=== PATIENT | male | born 1975 | race Two or more races ===

== ENCOUNTER 2016-04-05 21:33 | Emergency (ER) | payer OTHER ==
[2016-04-05 21:56] VITALS: BP 134/92; PULSE 115; TEMP 97.5; BMI 24.3
[2016-04-05] MEDS ORDERED: KETOROLAC TROMETHAMINE 60 MG/2 ML VIAL IM ONE (22:23)
--- NOTE | 2016-04-05 22:23 | PDOC ---
History of Present Illness - General History Source: Patient Exam Limitations: No Limitations - History of Present Illness Initial Comments: 04/05/16 22:52 The patient is a 40-year-old male with a significant past medical history of hypertension, ESRD and gout, presenting to the emergency department complaining of pain predominantly in his right elbow radiating down to his wrist and hand. The patient reports these symptoms are typical of his gout. He reports his pain is exacerbated upon movement. He states he is currently compliant with his allopurinol and prednisone medications. He states he went to dialysis today, and was able to complete his session. He denies nausea, vomiting, diarrhea, and constipation. He denies fever, chills, cough, headache, and dizziness. He denies any chest pain, diaphoresis, palpitations, or shortness of breath. Allergies: None reported. Past Surgical History: None reported. Social History: Non-smoker. Denies alcohol or drug use. PCP: Dr. Stephan Cunningham <Deon Mancini - Last Filed: 04/05/16 22:54> - General History Source: Patient <CornelioBoone perez - Last Filed: 04/05/16 23:53> - General Chief Complaint: Pain Stated Complaint: PAIN-RIGHT HAND Time Seen by Provider: 04/05/16 22:21 Past History <Deon Mancini - Last Filed: 04/05/16 22:54> - Past Medical History Anemia: No Asthma: No Cancer: No Cardiac Disorders: No CVA: No COPD: No CHF: No Dementia: No Diabetes: No Dialysis: Yes (, , Sat) GI Disorders: No Disorders: No HTN: Yes Hypercholesterolemia: No Kidney Stones: (Renal insufficiency) Liver Disease: No Seizures: No Thyroid Disease: No - Surgical History Abdominal Surgery: No Appendectomy: No Cardiac Surgery: No Cholecystectomy: No Lung Surgery: No Neurologic Surgery: No Orthopedic Surgery: No - Psycho/Social/Smoking Cessation Hx Suicidal Ideation: No Smoking History: Never smoked Have you smoked in the past 12 months: No Hx Alcohol Use: No Drug/Substance Use Hx: No Substance Use Type: None Hx Substance Use Treatment: No <Boone Nava - Last Filed: 04/05/16 23:53> - Past Medical History Allergies/Adverse Reactions: Allergies Allergy/AdvReac Type Severity Reaction Status Date / Time No Known Allergies Allergy Verified 04/05/16 21:51 Home Medications: Ambulatory Orders Allopurinol [Zyloprim -] 100 mg PO DAILY 01/30/16 Losartan Potassium 50 mg PO DAILY 01/30/16 Ibuprofen 800 mg PO TID #30 tablet 04/05/16 Oxycodone HCl/Acetaminophen [Percocet 5-325 mg Tablet] 1 - 2 tab PO Q6H #20 tablet MDD 4 04/05/16 Prednisone 10 mg PO DAILY 04/05/16 Review of Systems - Review of Systems Able to Perform ROS?: Yes Comments:: 04/05/16 22:53 CONSTITUTIONAL: Absent: fever, chills, diaphoresis, generalized weakness, malaise, loss of appetite HEENT: Absent: rhinorrhea, nasal congestion, throat pain, throat swelling, difficulty swallowing, mouth swelling, ear pain, eye pain, visual Changes CARDIOVASCULAR: Absent: chest pain, syncope, palpitations, irregular heart rate, lightheadedness , peripheral edema RESPIRATORY: Absent: cough, shortness of breath, dyspnea with exertion, orthopnea, wheezing, stridor, hemoptysis GASTROINTESTINAL: Absent: abdominal pain, abdominal distension, nausea, vomiting, diarrhea, constipation, melena, hematochezia GENITOURINARY: Absent: dysuria, frequency, urgency, hesitancy, hematuria, flank pain, genital pain MUSCULOSKELETAL: Present: +arthralgia, +joint swelling Absent: myalgia, SKIN: Absent: rash, itching, pallor HEMATOLOGIC/IMMUNOLOGIC: Absent: easy bleeding, easy bruising, lymphadenopathy, frequent infections ENDOCRINE: Absent: unexplained weight gain, unexplained weight loss, heat intolerance, cold intolerance NEUROLOGIC: Absent: headache, focal weakness or paresthesias, dizziness, unsteady gait, seizure, mental status changes, bladder or bowel incontinence PSYCHIATRIC: Absent: anxiety, depression, suicidal or homicidal ideation, hallucinations. <Deon Mancini - Last Filed: 04/05/16 22:54> *Physical Exam - Vital Signs Last Vital Signs Temp Pulse Resp BP Pulse Ox 97.5 F L 115 H 20 134/92 99 04/05/16 21:53 04/05/16 21:53 04/05/16 21:53 04/05/16 21:53 04/05/16 21:53 - Physical Exam Comments: 04/05/16 22:53 GENERAL: Well developed, well nourished. Awake and alert. No acute distress. HEENT: Normocephalic, atraumatic. PERRLA, EOMI. No conjunctival pallor. Sclera are non- icteric. Moist mucous membranes. Oropharynx is clear. NECK: Supple. Full ROM. No JVD. Carotid pulses 2+ and symmetric, without bruits. No thyromegaly. No lymphadenopathy. CARDIOVASCULAR: Regular rate and rhythm. No murmurs, rubs, or gallops. Distal pulses are 2+ and symmetric. PULMONARY: No evidence of respiratory distress. Lungs clear to auscultation bilaterally. No wheezing, rales or rhonchi. ABDOMINAL: Soft. Non-tender. Non-distended. No rebound or guarding. No organomegaly. Normoactive bowel sounds. MUSCULOSKELETAL +Diffuse tenderness of the right upper extremity, just above the elbow down to his fingertips. Decreased range of motion secondary to pain. EXTREMITIES: No cyanosis. No clubbing. No edema. No calf tenderness. SKIN: Warm and dry. Normal capillary refill. No rashes. No jaundice. NEUROLOGICAL: Alert, awake, appropriate. Cranial nerves 2-12 intact. No deficits to light touch and temperature in face, upper extremities and lower extremities. No motor deficits in the in face, upper extremities and lower extremities. Normoreflexic in the upper and lower extremities. Normal speech. Toes are down- going bilaterally. Gait is normal without ataxia. PSYCHIATRIC: Cooperative. Good eye contact. Appropriate mood and affect. <Deon Mancini - Last Filed: 04/05/16 22:54> - Vital Signs Last Vital Signs Temp Pulse Resp BP Pulse Ox 97.5 F L 115 H 20 134/92 99 04/05/16 21:53 04/05/16 21:53 04/05/16 21:53 04/05/16 21:53 04/05/16 21:53 <Boone Nava - Last Filed: 04/05/16 23:53> ED Treatment Course - Medications Given in the ED: ED Medications Discontinued Medications Generic Name Dose Route Start Last Admin Trade Name Freq PRN Reason Stop Dose Admin Ketorolac Tromethamine 60 mg 04/05/16 22:23 04/05/16 22:32 Toradol Injection - IM 04/05/16 22:24 60 mg ONCE ONE Administration <Deon Mancini - Last Filed: 04/05/16 22:54> Medical Decision Making - Medical Decision Making 04/05/16 23:53 Dr. Nava: The scribe's documentation has been prepared under my direction and personally reviewed by me in its entirery. I confirm that the note above accurately reflects all work, treatment, procedures, and medical decision making performed by me. <Boone Nava - Last Filed: 04/05/16 23:53> *DC/Admit/Observation/Transfer - Attestations Scribe Attestion: 04/05/16 22:54 Documentation prepared by Deon Mancini, acting as medical office manager for Boone Nava DO. <Deon Mancini - Last Filed: 04/05/16 22:54> - Discharge Dispostion Admit: No <Boone Nava - Last Filed: 04/05/16 23:53> Diagnosis at time of Disposition: Gout Qualifiers: Gout site: hand Gout etiology: unspecified cause Laterality: right Chronicity: chronic - Discharge Dispostion Disposition: HOME Condition at time of disposition: Stable - Referrals Referrals: Stephan Cunningham MD [Primary Care Provider] - - Patient Instructions Printed Discharge Instructions: DI for Gout
[2016-04-05] MEDS ORDERED: KETOROLAC TROMETHAMINE 60 MG/2 ML VIAL ONE (22:24)
[2016-04-05] MEDS ORDERED: OXYCODONE/APAP 5/325MG COMBO TABLET PO ONE (23:25)
[2016-04-05] MEDS ORDERED: OXYCODONE/APAP 5/325MG COMBO TABLET ONE (23:29)
== END 2016-04-06 00:28 | disposition home or self-care (01) ==
LOC: JER 21:33
PROC: 3E0233Z Introduction of Anti-inflammatory into Muscle, Percutaneous Approach (ICD-10-PCS; principal; 2016-04-05)
DX: M10.9 Gout, unspecified (principal); I12.0 Hypertensive chronic kidney disease with stage 5 chronic kidney disease or end stage renal disease; N18.6 End stage renal disease; N17.8 Other acute kidney failure; Z99.2 Dependence on renal dialysis
CPT/HCPCS: 99282-25

== ENCOUNTER 2016-05-12 15:19 | Emergency (ER) | payer OTHER ==
[2016-05-12 15:28] VITALS: BP 149/90; TEMP 97.8; BMI 24.6
[2016-05-12] MEDS ORDERED: COLCHICINE 0.6 MG TABLET (FP) PO ONE (16:12)
[2016-05-12] MEDS ORDERED: INDOMETHACIN 50 MG CAPSULE PO ONE (16:12)
[2016-05-12] MEDS ORDERED: COLCHICINE 0.6 MG TABLET (FP) ONE (16:15)
--- NOTE | 2016-05-12 16:25 | PDOC ---
History of Present Illness - General Chief Complaint: Pain Stated Complaint: GOUT/ KNEES Time Seen by Provider: 05/12/16 16:09 History Source: Patient - History of Present Illness Associated Symptoms: denies: fever/chills Past History - Past Medical History Allergies/Adverse Reactions: Allergies Allergy/AdvReac Type Severity Reaction Status Date / Time No Known Allergies Allergy Verified 05/12/16 15:28 Home Medications: Ambulatory Orders Allopurinol [Zyloprim -] 100 mg PO DAILY 01/30/16 Losartan Potassium 50 mg PO DAILY 01/30/16 Ibuprofen 800 mg PO TID #30 tablet 04/05/16 Oxycodone HCl/Acetaminophen [Percocet 5-325 mg Tablet] 1 - 2 tab PO Q6H #20 tablet MDD 4 04/05/16 Prednisone 10 mg PO DAILY 04/05/16 Allopurinol [Zyloprim -] 100 mg PO DAILY #30 tablet 05/12/16 Oxycodone HCl/Acetaminophen [Percocet 5-325 mg Tablet] 1 tab PO Q4H #20 tablet MDD 4 05/12/16 Prednisone [Deltasone -] 20 mg PO DAILY #11 tablet 05/12/16 Anemia: No Asthma: No Cancer: No Cardiac Disorders: No CVA: No COPD: No CHF: No Dementia: No Diabetes: No Dialysis: Yes (, , Sat) GI Disorders: No Disorders: No HTN: Yes Hypercholesterolemia: No Kidney Stones: (Renal insufficiency) Liver Disease: No Seizures: No Thyroid Disease: No Other medical history: gout - Surgical History Abdominal Surgery: No Appendectomy: No Cardiac Surgery: No Cholecystectomy: No Lung Surgery: No Neurologic Surgery: No Orthopedic Surgery: No - Psycho/Social/Smoking Cessation Hx Suicidal Ideation: No Smoking History: Never smoked Have you smoked in the past 12 months: No Information on smoking cessation initiated: No Hx Alcohol Use: No Drug/Substance Use Hx: No Substance Use Type: None Hx Substance Use Treatment: No Review of Systems - Review of Systems Constitutional: No: Chills, Fever Musculoskeletal: Yes: Joint Pain, Joint Swelling *Physical Exam - Vital Signs Last Vital Signs Temp Pulse Resp BP Pulse Ox 97.8 F 116 H 18 149/90 98 05/12/16 15:26 05/12/16 15:26 05/12/16 15:26 05/12/16 15:26 05/12/16 15:26 - Physical Exam General Appearance: Yes: Appropriately Dressed. No: Apparent Distress HEENT: positive: Normal Voice Neck: positive: Supple Respiratory/Chest: negative: Respiratory Distress Extremity: positive: Tender (diffuse swellign to knees, bl, +ttp, minimal swelling w/ ttp to dorsum of R wrist), Swelling Medical Decision Making - Medical Decision Making 05/12/16 16:17 40 yo M, h/o HTN, ESRD on HD, gout to multiple joints, on allopurinol daily but ran out 2 days ago and now p/w b/l knee and R wrist pain and swelling that started yesterday, similar to his gout. No f/c. No h/o septic joint. See exam Polyarticular gout flare Ran out of allopurinol No e/o septic joint Unable to get NSAID or colchicine given renal status Will start on steroids and give 1 dose of narcotics in ED and reassess 05/12/16 17:02 05/12/16 18:05 Pt reports significant improvement w/ meds and able to ambulate. Will dc w/ pred taper and refill of his allopurinol. Pt to f/u with PMD *DC/Admit/Observation/Transfer Diagnosis at time of Disposition: Gout Qualifiers: Gout site: wrist Gout etiology: unspecified cause Laterality: right Chronicity : acute Qualified Code(s): M10.9 - Gout, unspecified - Discharge Dispostion Disposition: HOME Condition at time of disposition: Improved - Prescriptions Prescriptions: Prednisone [Deltasone -] 20 mg PO DAILY #11 tablet Oxycodone HCl/Acetaminophen [Percocet 5-325 mg Tablet] 1 tab PO Q4H #20 tablet MDD 4 Allopurinol [Zyloprim -] 100 mg PO DAILY #30 tablet - Referrals Referrals: Stephan Cunningham MD [Primary Care Provider] - - Patient Instructions Printed Discharge Instructions: Gout Additional Instructions: Take medications as directed and follow up with your PMD
[2016-05-12] MEDS ORDERED: predniSONE 20 MG TABLET (UD) PO ONE (16:31)
[2016-05-12] MEDS ORDERED: ALLOPURINOL 100 MG TABLET (FP) PO ONE (16:32)
[2016-05-12] MEDS ORDERED: OXYCODONE/APAP 5/325MG COMBO TABLET PO ONE (16:34)
[2016-05-12] MEDS ORDERED: OXYCODONE/APAP 5/325MG COMBO TABLET ONE (16:39)
[2016-05-12] MEDS ORDERED: ALLOPURINOL 100 MG TABLET (FP) ONE (16:39)
[2016-05-12] MEDS ORDERED: predniSONE 20 MG TABLET (UD) ONE (16:39)
[2016-05-12 18:22] VITALS: PULSE 80
== END 2016-05-12 18:22 | disposition home or self-care (01) ==
LOC: JER 15:19 → JERFT 15:19 → JER 18:22
DX: M10.9 Gout, unspecified (principal); I12.0 Hypertensive chronic kidney disease with stage 5 chronic kidney disease or end stage renal disease; N18.6 End stage renal disease; N17.8 Other acute kidney failure; Z99.2 Dependence on renal dialysis
CPT/HCPCS: 99282-25

== ENCOUNTER 2016-07-15 10:23 | Inpatient (IN) | payer OTHER ==
--- NOTE | 2016-07-15 11:00 | PDOC ---
Attending Attestation - Resident Resident Name: Emerson Garcia - ED Attending Attestation I have performed the following: I have examined & evaluated the patient, The case was reviewed & discussed with the resident, I agree w/resident's findings & plan - HPI HPI: 07/15/16 10:58 41-year-old male with a past medical history of end-stage renal disease on dialysis Saturday and Saturday The basis of his end-stage renal disease is uncontrolled hypertension and PCKD He states that he has been on dialysis for about 6 months He is complaining of some pain in his vascular access graft in his left arm since this am, and he is unable to feel a thrill on the vascular access graft, prompting him to come to the ED He states that he did have a full dialysis yesterday without difficulty - Physicial Exam PE: 07/15/16 11:04 Physical exam Last Vital Signs Temp Pulse Resp BP Pulse Ox 98.2 F 88 18 165/112 98 07/15/16 10:25 07/15/16 10:25 07/15/16 10:25 07/15/16 10:25 07/15/16 10:25 Patient is alert and ambulatory and answering questions without difficulty Right arm- The dialysis access graft is tender, and there is no thrill in the graft - Medical Decision Making 07/15/16 12:26 Vascular duplex arterial There is no flow identified in the AV fistula at the level of the mid arm Impression-completely occluded left arm AV fistula Case discussed with Dr. Castrejon-will need admission 07/15/16 13:54 Laboratory Results - last 24 hr 07/15/16 07/15/16 07/15/16 12:30 12:30 12:30 WBC 12.7 H RBC 4.03 D Hgb 11.2 L D Hct 34.6 L D MCV 85.8 MCHC 32.5 RDW 14.4 Plt Count 182 D MPV 7.3 L Neutrophils % 78.0 Lymphocytes % 16.0 D Monocytes % 4.0 Band Neutrophils 2.0 Platelet Estimate Adequate Platelet Comment No clotting detected Hypochromic-Microcytic 1+ Anisocytosis 1+ INR PTT (Actin FS) Sodium 143 Potassium 3.8 D Chloride 105 Carbon Dioxide 28 Anion Gap 10 BUN 44 H D Creatinine 6.2 H D Creat Clearance w eGFR 9.98 Random Glucose 95 Calcium 8.4 L Phosphorus 3.2 D Total Bilirubin 0.3 D AST 14 L D ALT 38 D Alkaline Phosphatase 47 D Total Protein 6.5 Albumin 3.3 L 07/15/16 12:30 WBC RBC Hgb Hct MCV MCHC RDW Plt Count MPV Neutrophils % Lymphocytes % Monocytes % Band Neutrophils Platelet Estimate Platelet Comment Hypochromic-Microcytic Anisocytosis INR 0.97 PTT (Actin FS) 27.4 D Sodium Potassium Chloride Carbon Dioxide Anion Gap BUN Creatinine Creat Clearance w eGFR Random Glucose Calcium Phosphorus Total Bilirubin AST ALT Alkaline Phosphatase Total Protein Albumin Case discussed with Dr. Castrejon and hospitalist 07/15/16 14:05 EKG Normal sinus rhythm 70, normal axis Normal AV and IV conduction time Normal QTC Possible old septal infarct versus lead placement
--- NOTE | 2016-07-15 11:08 | PDOC ---
History of Present Illness - General Chief Complaint: Dialysis Shunt Problem Stated Complaint: DIALYSIS/FISTULA Time Seen by Provider: 07/15/16 10:35 History Source: Patient Exam Limitations: No Limitations - History of Present Illness Initial Comments: 41 yo M with h/o ESRD on HD (Tue, [place], Sat) last dialyzed yesterday, HTN and gout presented to the ED with pain at L AVF located in the L upper arm. He received HD yesterday without complication. This morning he noted pain at the AVF site, non-radiating, pressure-like, 5/10, constant, worse with bending his arm. Denies fever, chills, trauma to the site, n/v, chest pain, sob. Past History - Past Medical History Allergies/Adverse Reactions: Allergies Allergy/AdvReac Type Severity Reaction Status Date / Time No Known Allergies Allergy Verified 07/15/16 10:25 Home Medications: Ambulatory Orders Losartan Potassium 100 mg PO DAILY 01/30/16 Prednisone [Deltasone -] 20 mg PO DAILY #11 tablet 05/12/16 Febuxostat [Uloric -] 40 mg PO DAILY 07/15/16 Anemia: No Asthma: No Cancer: No Cardiac Disorders: No CVA: No COPD: No CHF: No Dementia: No Diabetes: No Dialysis: Yes (tue,thr,sat lt arm fistula) GI Disorders: No Disorders: No HTN: Yes Hypercholesterolemia: No Kidney Stones: (Renal insufficiency) Liver Disease: No Seizures: No Thyroid Disease: No - Surgical History Abdominal Surgery: No Appendectomy: No Cardiac Surgery: No Cholecystectomy: No Lung Surgery: No Neurologic Surgery: No Orthopedic Surgery: No - Psycho/Social/Smoking Cessation Hx Anxiety: No Suicidal Ideation: No Smoking History: Never smoked Have you smoked in the past 12 months: No Information on smoking cessation initiated: No Hx Alcohol Use: No Drug/Substance Use Hx: No Substance Use Type: None Hx Substance Use Treatment: No Review of Systems - Review of Systems Able to Perform ROS?: Yes Is the patient limited Czech proficient: No Constitutional: No: Chills, Fever Respiratory: No: Cough Cardiac (ROS): No: Chest Pain : No: Dysuria Musculoskeletal: No: Joint Pain *Physical Exam - Vital Signs Last Vital Signs Temp Pulse Resp BP Pulse Ox 98.2 F 88 18 165/112 98 07/15/16 10:25 07/15/16 10:25 07/15/16 10:25 07/15/16 10:25 07/15/16 10:25 - Physical Exam General Appearance: No: Apparent Distress Respiratory/Chest: positive: Lungs Clear, Normal Breath Sounds Cardiovascular: positive: Regular Rhythm, Regular Rate, S1, S2. negative: Murmur Musculoskeletal: negative: CVA Tenderness Extremity: positive: Other (No bruit heard over AVF and no thrill palpated) Neurologic: positive: Fully Oriented, Alert ED Treatment Course - RADIOLOGY Radiology Studies Ordered: Category Date Time Status DUPLEX HEMODIALYSIS ACCESS [VASC] Stat Vascular 07/15/16 10:54 Ordered Medical Decision Making - Medical Decision Making 07/15/16 11:11 41 yo M with h/o ESRD on HD admitted to the ED for possible AVF thrombosis. 07/15/16 12:39 Duplex shows AVF occlusion. Will admit the patient under hospitalist's service and Dr. Castrejon will fix it tomorrow. *DC/Admit/Observation/Transfer Diagnosis at time of Disposition: Thrombosis of arteriovenous fistula Qualifiers: Encounter type: initial encounter Qualified Code(s): T82.868A - Thrombosis due to vascular prosthetic devices, implants and grafts, initial encounter - Discharge Dispostion Disposition: HOME Condition at time of disposition: Stable Admit: Yes - Referrals Referrals: Stephan Cunningham MD [Primary Care Provider] -
[2016-07-15 13:04] LABS: MCH 27.9 pg (25.7-33.7); MCHC 32.5 g/dl (32.0-35.9); MEAN CELL VOLUME 85.8 fl (80-96); MEAN PLT VOLUME 7.3 fl (7.5-11.1); PLATELET COUNT 182 K/MM3 (134-434); RDW 14.4 % (11.9-15.9); WHITE BLOOD COUNT 12.7 K/mm3 (4.0-10.0)
[2016-07-15 13:20] LABS: INR 0.97 (0.82-1.09); PROTHROMBIN TIME (PATIENT) 10.7 SEC (9.98-11.88)
[2016-07-15 13:23] LABS: ACTIVATED PTT 27.4 SECONDS (26.9-34.4)
[2016-07-15 13:31] LABS: ALBUMIN 3.3 g/dl (3.4-5.0); BILIRUBIN,TOTAL 0.3 mg/dL (0.2-1.0); CALCIUM 8.4 mg/dL (8.5-10.1); COCKROFT - GAULT 15.93; CREATININE 6.2 mg/dL (0.7-1.3); TOT PROT 6.5 g/dl (6.4-8.2)
[2016-07-15 13:34] LABS: ANISOCYTOSIS 1+; HYPOCHROMIA 1+; PLATELET COMMENT2 NO CLOTTING DETECTED; PLATELET ESTIMATE ADEQUATE (NORMAL)
--- NOTE | 2016-07-15 14:22 | HP ---
CHIEF COMPLAINT: AVF malfunction PCP: HISTORY OF PRESENT ILLNESS: 41 yo M with polycystic kidney disease on ESRD through LUE fistula, HTN, gout presents with AVF malfunction. Patient states that he had HD yesterday, as he normally does. This AM he woke up with discomfort in his LUE and felt his fistula and noticed there wasn't a thrill. He came to ED. He denies any swelling in the LUE. ER course was notable for: (1) LUE US with thrombosed fistula PAST MEDICAL HISTORY: as above PAST SURGICAL HISTORY: AVF Social History: Smoking: dnies Alcohol: denies Drugs: denies Family History: ESRD 2/2 PCKD Allergies No Known Allergies Allergy (Verified 07/15/16 10:25) HOME MEDICATIONS: Home Medications Medication Instructions Recorded Losartan Potassium 100 mg PO DAILY 01/30/16 Prednisone [Deltasone -] 20 mg PO DAILY #11 tablet 05/12/16 Febuxostat [Uloric -] 40 mg PO DAILY 07/15/16 REVIEW OF SYSTEMS CONSTITUTIONAL: Absent: fever, chills, diaphoresis, generalized weakness, malaise, loss of appetite, weight change HEENT: Absent: rhinorrhea, nasal congestion, throat pain, throat swelling, difficulty swallowing, mouth swelling, ear pain, eye pain, visual changes CARDIOVASCULAR: Absent: chest pain, syncope, palpitations, irregular heart rate, lightheadedness , peripheral edema RESPIRATORY: Absent: cough, shortness of breath, dyspnea with exertion, orthopnea, wheezing, stridor, hemoptysis GASTROINTESTINAL: Absent: abdominal pain, abdominal distension, nausea, vomiting, diarrhea, constipation, melena, hematochezia GENITOURINARY: Absent: dysuria, frequency, urgency, hesitancy, hematuria, flank pain, genital pain MUSCULOSKELETAL: Absent: myalgia, arthralgia, joint swelling, back pain, neck pain SKIN: Absent: rash, itching, pallor HEMATOLOGIC/IMMUNOLOGIC: Absent: easy bleeding, easy bruising, lymphadenopathy, frequent infections ENDOCRINE: Absent: unexplained weight gain, unexplained weight loss, heat intolerance, cold intolerance NEUROLOGIC: Absent: headache, focal weakness or paresthesias, dizziness, unsteady gait, seizure, mental status changes, bladder or bowel incontinence PSYCHIATRIC: Absent: anxiety, depression, suicidal or homicidal ideation, hallucinations. PHYSICAL EXAMINATION GENERAL: Awake, alert, and fully oriented, in no acute distress. HEAD: Normal with no signs of trauma. EYES: Pupils equal, round and reactive to light, extraocular movements intact, sclera anicteric, conjunctiva clear. No lid lag. EARS, NOSE, THROAT: Ears normal, nares patent, oropharynx clear without exudates. Moist mucous membranes. NECK: Normal range of motion, supple without lymphadenopathy, JVD, or masses. LUNGS: Breath sounds equal, clear to auscultation bilaterally. No wheezes, and no crackles. No accessory muscle use. HEART: Regular rate and rhythm, normal S1 and S2 without murmur, rub or gallop. ABDOMEN: Soft, nontender, not distended, normoactive bowel sounds, no guarding, no rebound, no masses. No hepatomegaly or splenomegaly. MUSCULOSKELETAL: Normal range of motion at all joints. No bony deformities or tenderness. No CVA tenderness. UPPER EXTREMITIES: 2+ pulses, warm, well-perfused. No cyanosis. No clubbing. No peripheral edema. NO BRUIT, NO THRILL in FISTULA LOWER EXTREMITIES: 2+ pulses, warm, well-perfused. No calf tenderness. No peripheral edema. NEUROLOGICAL: Cranial nerves II-XII intact. Normal speech. Normal gait. PSYCHIATRIC: Cooperative. Good eye contact. Appropriate mood and affect. SKIN: Warm, dry, normal turgor, no rashes or lesions noted, normal capillary refill. Laboratory Results - last 24 hr 07/15/16 07/15/16 07/15/16 12:30 12:30 12:30 WBC 12.7 H RBC 4.03 D Hgb 11.2 L D Hct 34.6 L D MCV 85.8 MCHC 32.5 RDW 14.4 Plt Count 182 D MPV 7.3 L Neutrophils % 78.0 Lymphocytes % 16.0 D Monocytes % 4.0 Band Neutrophils 2.0 Platelet Estimate Adequate Platelet Comment No clotting detected Hypochromic-Microcytic 1+ Anisocytosis 1+ INR PTT (Actin FS) Sodium 143 Potassium 3.8 D Chloride 105 Carbon Dioxide 28 Anion Gap 10 BUN 44 H D Creatinine 6.2 H D Creat Clearance w eGFR 9.98 Random Glucose 95 Calcium 8.4 L Phosphorus 3.2 D Total Bilirubin 0.3 D AST 14 L D ALT 38 D Alkaline Phosphatase 47 D Total Protein 6.5 Albumin 3.3 L 07/15/16 12:30 WBC RBC Hgb Hct MCV MCHC RDW Plt Count MPV Neutrophils % Lymphocytes % Monocytes % Band Neutrophils Platelet Estimate Platelet Comment Hypochromic-Microcytic Anisocytosis INR 0.97 PTT (Actin FS) 27.4 D Sodium Potassium Chloride Carbon Dioxide Anion Gap BUN Creatinine Creat Clearance w eGFR Random Glucose Calcium Phosphorus Total Bilirubin AST ALT Alkaline Phosphatase Total Protein Albumin ASSESSMENT/PLAN: 41 yo M with polycystic kidney disease on ESRD through LUE fistula, HTN, gout presents with AVF malfunction and US revealing thrombosed fistula. His vascular surgeon has been consulted and he will go to the OR tomorrow. AVF malfunction: -OR tomorrow - NPO after midnight ESRD: - resume HD after OR - no acute indication for HD HTN: -continue losartan gout: -continue uloric
[2016-07-15 20:42] VITALS: BMI 24.2
[2016-07-15] MEDS ORDERED: PT OWN MED DRAWER 7, Y5N ONE (22:19)
--- NOTE | 2016-07-16 00:08 | EKG ---
Test Reason : Blood Pressure : / mmHG Vent. Rate : 070 BPM Atrial Rate : 070 BPM P-R Int : 128 ms QRS Dur : 082 ms QT Int : 394 ms P-R-T Axes : 035 024 032 degrees QTc Int : 425 ms NORMAL SINUS RHYTHM SEPTAL INFARCT , AGE UNDETERMINED ABNORMAL ECG WHEN COMPARED WITH ECG OF 06-DEC-2015 12:57, NO SIGNIFICANT CHANGE WAS FOUND Confirmed by LISA HSU MD ([id number]) on 07/16/2016 12:08:14 AM Referred By: Confirmed By:LISA HSU MD
[2016-07-16 07:42] LABS: MCH 28.3 pg (25.7-33.7); MCHC 32.8 g/dl (32.0-35.9); MEAN CELL VOLUME 86.1 fl (80-96); MEAN PLT VOLUME 7.7 fl (7.5-11.1); PLATELET COUNT 187 K/MM3 (134-434); RDW 14.4 % (11.9-15.9)
[2016-07-16 08:22] LABS: CALCIUM 8.4 mg/dL (8.5-10.1); COCKROFT - GAULT 14.06; PHOSPHOROUS 3.6 mg/dL (2.5-4.9)
[2016-07-16] MEDS ORDERED: PT OWN MED DRAWER 7, Y5N ONE (09:06)
[2016-07-16] MEDS ORDERED: FEBUXOSTAT 40 MG TAB PO SCH (10:00)
[2016-07-16] MEDS ORDERED: LOSARTAN POTASSIUM 50 MG TABLET (FP) PO SCH (10:00)
--- NOTE | 2016-07-16 11:55 | CONSULT ---
Consult - text type - Consultation Consultation Note: Renal Consult for ESRD on Hd This is 41 year old Gentleman wit PMhx of ESRD on HD (TTS), PCKD, Hypertension , Gout who presented with left arm pain and found to have a clotted AVF. Pt lasthad dialysis on Saturday w/o complication. PMhx: as above Allergies: NKDA Family hx: NC Social hx: no T/A/D ROS: No chest pain, sob, abd pain, fever, chills, swelling. Has tenderness in Right hand. Home Meds: Home Medications Medication Instructions Recorded Losartan Potassium 100 mg PO DAILY 01/30/16 Prednisone [Deltasone -] 20 mg PO DAILY #11 tablet 05/12/16 Febuxostat [Uloric -] 40 mg PO DAILY 07/15/16 Vital Signs Temperature 98.7 F 07/16/16 10:05 Pulse Rate 53 L 07/16/16 10:05 Respiratory Rate 16 07/16/16 10:05 Blood Pressure 170/90 07/16/16 11:00 O2 Sat by Pulse Oximetry (%) 96 07/16/16 09:00 Intake & Output 07/13/16 07/14/16 07/15/16 07/16/16 23:59 23:59 23:59 23:59 Intake Total 0 Balance 0 Weight 159 lb 8 oz 164 lb 12.8 oz gen: NAD, awake and alert HEENT: NC/AT, MMM CVS: RRR, No M/R Lungs: CTA, no rales or wheeze Abd: soft NT/ND Ext: no edema Access: AVF no thrill or Bruit CBC, BMP 07/16/16 06:00 07/16/16 06:00 Current Medications Febuxostat (Uloric -) 40 mg PO DAILY [facility] Last Admin: 07/16/16 10:27 Dose: Not Given Losartan Potassium (Cozaar -) 100 mg PO DAILY [facility] Last Admin: 07/16/16 09:18 Dose: 100 mg 41 year old Gentleman wit PMhx of ESRD on HD (TTS), PCKD, Hypertension, Gout who presented with left arm pain and found to have a clotted AVF. #Hemodialysis access complication /dysfunction # ESRD on HD #Hypertension #Gout #PCKD #Anemia for Vascular intervention today no acute indication for dialysis today can be discharged following reji Cunningham DO
[2016-07-16] MEDS ORDERED: HEPARIN NA (PORCINE) 5,000 UNITS/ML 1ML VIAL ONE ×3 (12:27→14:59)
[2016-07-16] MEDS ORDERED: LIDOCAINE HCL 1%, 10 MG/ML (20ML VIAL) ONE (12:27)
[2016-07-16] MEDS ORDERED: ceFAZolin SODIUM 1 GM VIAL IVPB ONE (13:49)
[2016-07-16] MEDS ORDERED: LIDOCAINE HCL 1%, 10 MG/ML (20ML VIAL) IJ ONE ×2 (13:56)
[2016-07-16] MEDS ORDERED: ONDANSETRON 4 MG/2 ML VIAL IVPUSH PRN ×2 (14:58→15:44)
--- NOTE | 2016-07-16 15:09 | OP ---
Operative Note - Note: Operative Date: 07/16/16 Pre-Operative Diagnosis: ESRD. Clotted left avf Operation: venogram,suction thrombectomy left avf, insertion of permacath Post-Operative Diagnosis: Same as Pre-op Surgeon: Blaze Castrejon Anesthesia: Fractional Estimated Blood Loss (mls): 30 Operative Report Dictated: Yes
[2016-07-16] MEDS ORDERED: LABETALOL HCL 5 MG/1 ML (100MG/20 ML VIAL) IVPUSH ONE (16:08)
[2016-07-16] MEDS ORDERED: cloNIDine HCL 0.1 MG TABLET PO ONE (16:48)
--- NOTE | 2016-07-16 18:59 | PN ---
Progress Note (short form) - Note Progress Note: Vascular Surgery Left avf clotted and could not open permacath placed left IJ Will order vein mapping of right arm to place new access Blaze Castrejon dO
--- NOTE | 2016-07-16 19:51 | PN ---
Physical Exam: SUBJECTIVE: Patient seen and examined post op. He is feeling cold and discouraged the clot would not open. He is hungry. Denies double vision or HELMS. OBJECTIVE: Vital Signs Period Temp Pulse Resp BP Sys/Hilario Pulse Ox Last 24 Hr 97.9 F-98.7 F 53-86 9-20 140-185/85-124 96-100 PE Neuro: alert, awake, cn 2-12intact Pulm: CTAB CV: s1 s2 rrr nomrg Abd: s nt nd +bs ExT: LUE AVF no thrill, + sutures in tact skin: LCW permacath in palce Laboratory Results - last 24 hr 07/16/16 07/16/16 07/16/16 06:00 06:00 10:15 WBC 11.0 H RBC 4.09 Hgb 11.5 L Hct 35.2 L MCV 86.1 MCHC 32.8 RDW 14.4 Plt Count 187 MPV 7.7 Sodium 142 Potassium 4.3 Plasma Potassium 4.3 Chloride 106 Carbon Dioxide 24 Anion Gap 12 BUN 59 H D Creatinine 7.0 H Random Glucose 81 Calcium 8.4 L Phosphorus 3.6 Magnesium 2.0 Active Medications Generic Name Dose Route Start Last Admin Trade Name Freq PRN Reason Stop Dose Admin Febuxostat 40 mg 07/17/16 10:00 Uloric - PO DAILY ES Losartan Potassium 100 mg 07/17/16 10:00 Cozaar - PO DAILY ES Ondansetron HCl 4 mg 07/16/16 15:44 Zofran Injection IVPUSH 07/16/16 20:59 Q6H PRN NAUSEA AND/OR VOMITING Assessment: 41 year old male with PMhx of ESRD on HD (TTS), PCKD, Hypertension, Gout admitted with left arm pain and found to have a clotted AVF. Plan: 1. AVF complication /dysfunction - Unsuccessful thrombectomy today, clot would not open - LCW Permacath placed - Per vascular vein mapping of right arm to place new access 2. ESRD on HD - HD tomorrow per Renal 3. Hypertension - Clonidine 0.1mg x1 given for post surgical HTN with appropriate decrease - Losartan 100mg daily - Start norvasc 5mg daily tomorrow 4. Gout - Continue uloric 5. PCKD 6. Anemia - Hgb stable 7. DVT ppx - Heparin sq Visit type - Emergency Visit Emergency Visit: Yes ED Registration Date: 07/15/16 Care time: The patient presented to the Emergency Department on the above date and was hospitalized for further evaluation of their emergent condition. - New Patient This patient is new to me today: Yes Date on this admission: 07/16/16 - Critical Care Critical Care patient: No
[2016-07-16] MEDS: oxyCODONE HCL 5 MG TABLET PO PRN (23:04)
[2016-07-16] MEDS: ACETAMINOPHEN 325 MG TABLET (FP) PO PRN (23:06)
[2016-07-17 07:48] LABS: BASOPHIL 0.3 % (0-2.0); EOSINOPHIL 0.4 % (0-4.5); MCHC 32.6 g/dl (32.0-35.9); MEAN CELL VOLUME 85.8 fl (80-96); MEAN PLT VOLUME 7.9 fl (7.5-11.1); NEUTROPHILS 84.4 % (42.8-82.8); PLATELET COUNT 170 K/MM3 (134-434); RDW 14.5 % (11.9-15.9); WHITE BLOOD COUNT 13.6 K/mm3 (4.0-10.0)
[2016-07-17 08:11] LABS: CALCIUM 8.5 mg/dL (8.5-10.1); PHOSPHOROUS 3.8 mg/dL (2.5-4.9)
[2016-07-17 08:21] LABS: COCKROFT - GAULT 13.21
[2016-07-17 08:51] LABS: CREATININE 7.7 mg/dL (0.7-1.3)
--- NOTE | 2016-07-17 09:04 | PN ---
Progress Note (short form) - Note Progress Note: Vascular Surgery- Dr. Castrejon Patient seen and examined. Patient states he is doing well, has minimal pain in left arm and permacath site, however he is complaining of pain and swelling in his right hand due to his gout. Last Vital Signs Temp Pulse Resp BP Pulse Ox 98.1 F 87 20 139/80 96 07/17/16 09:00 07/17/16 09:00 07/17/16 09:00 07/17/16 09:00 07/17/16 09:00 CBC, BMP 07/17/16 06:15 07/17/16 06:15 Exam: Gen: NAD Permacath in place, dressing c/d/i UE: LUE sutures c/d/i, RUE swelling tenderness right hand A/P POD#1 s/p unsuccessful thrombectomy for occluded L AVF, permacath placement Follow-up vein mapping for new access
[2016-07-17] MEDS: amLODIPine BESYLATE 5 MG TABLET (FP) PO SCH (09:08)
[2016-07-17] MEDS: HEPARIN NA (PORCINE) 5,000 UNITS/ML 1ML VIAL SQ SCH ×3 (09:08→23:47)
[2016-07-17] MEDS: LOSARTAN POTASSIUM 50 MG TABLET (FP) PO SCH (09:08)
[2016-07-17] MEDS: FEBUXOSTAT 40 MG TAB PO SCH (09:08)
--- NOTE | 2016-07-17 10:45 | PN ---
Physical Exam: SUBJECTIVE: Patient seen and examined. He is c/p R hand pain and swelling, he was unable to sleep d/t pain OBJECTIVE: Vital Signs Period Temp Pulse Resp BP Sys/Hilario Pulse Ox Last 24 Hr 97.8 F-99.8 F 68-100 9-20 127-185/74-124 96-100 PE Neuro: alert, awake, cn 2-12intact Pulm: CTAB CV: s1 s2 rrr no mrg Abd: s nt nd +bs ExT: R hand swelling tracks to elbow, warm, tender, unable to move, LUE AVF no thrill, + sutures in tact Skin: LCW permacath Laboratory Results - last 24 hr 07/17/16 07/17/16 06:15 06:15 WBC 13.6 H RBC 3.88 L Hgb 10.9 L Hct 33.3 L MCV 85.8 MCHC 32.6 RDW 14.5 Plt Count 170 MPV 7.9 Neutrophils % 84.4 H Lymphocytes % 9.8 D Monocytes % 5.1 Eosinophils % 0.4 D Basophils % 0.3 Sodium 138 Potassium 4.4 Chloride 103 Carbon Dioxide 19 L D Anion Gap 16 BUN 70 H Creatinine 7.7 H* Random Glucose 95 Calcium 8.5 Phosphorus 3.8 Magnesium 2.0 Active Medications Generic Name Dose Route Start Last Admin Trade Name Freq PRN Reason Stop Dose Admin Acetaminophen 325 mg 07/16/16 19:50 07/16/16 23:06 Tylenol - PO 325 mg Q6H PRN Administration FEVER OR PAIN Amlodipine Besylate 5 mg 07/17/16 10:00 07/17/16 09:08 Norvasc - PO 5 mg DAILY ES Administration Febuxostat 40 mg 07/17/16 10:00 07/17/16 09:08 Uloric - PO 40 mg DAILY ES Administration Heparin Sodium (Porcine) 5,000 unit 07/17/16 10:00 07/17/16 09:08 Heparin - SQ 5,000 unit TID ES Administration Heparin Sodium (Porcine) 1,000 unit 07/17/16 09:21 Heparin - IVPUSH 07/17/16 09:22 ONCE ONE Losartan Potassium 100 mg 07/17/16 10:00 07/17/16 09:08 Cozaar - PO 100 mg DAILY ES Administration Oxycodone HCl 5 mg 07/16/16 19:50 07/16/16 23:04 Roxicodone - PO 5 mg Q6H PRN Administration PAIN Assessment: 41 year old male with PMhx of ESRD on HD (TTS), PCKD, Hypertension, Gout admitted with left arm pain and found to have a clotted AVF. Plan: 1. AVF complication /dysfunction - Unsuccessful thrombectomy; LCW Permacath placed 07/16 - Vein mapping of right arm to place new access 2. ESRD on HD - HD today 3. Hypertension - Stable this AM - Continue losartan 100 daily - Started norvasc 5mg today 4. Acute gout flare - Check uric acid level now - Continue uloric 5. Leukocytosis - Reactive 2/2 surgery vs acute gout - Will monitor, see above 6. PCKD 7. Anemia - Hgb stable 8. DVT ppx - Heparin sq Visit type - Emergency Visit Emergency Visit: Yes ED Registration Date: 07/15/16 Care time: The patient presented to the Emergency Department on the above date and was hospitalized for further evaluation of their emergent condition. - New Patient This patient is new to me today: No - Critical Care Critical Care patient: No
[2016-07-17] MEDS ORDERED: COLCHICINE 0.6 MG TABLET (FP) PO ONE ×2 (11:19→12:30)
--- NOTE | 2016-07-17 11:47 | PN ---
Progress Note (short form) - Note Progress Note: Renal Follow up for ESRD on HD Pt seen and examined during dialysis BP stable, permacath with good flow pt has pain and swelling in right hand no sob or chest pain Vital Signs Temperature 98.1 F 07/17/16 09:00 Pulse Rate 87 07/17/16 09:00 Respiratory Rate 20 07/17/16 09:00 Blood Pressure 139/80 07/17/16 09:00 O2 Sat by Pulse Oximetry (%) 96 07/17/16 09:00 Intake & Output 07/14/16 07/15/16 07/16/16 07/17/16 23:59 23:59 23:59 23:59 Intake Total 440 120 Output Total 30 Balance 410 120 Weight 159 lb 8 oz 164 lb 12.8 oz gen: NAD, awake and alert HEENT: NC/AT, MMM CVS: RRR, No M/R Lungs: CTA, no rales or wheeze Abd: soft NT/ND Ext: no edema Access: AVF no thrill or Bruit, permacath in place CBC, BMP 07/17/16 06:15 07/17/16 06:15 Current Medications Acetaminophen (Tylenol -) 325 mg PO Q6H PRN PRN Reason: FEVER OR PAIN Last Admin: 07/16/16 23:06 Dose: 325 mg Amlodipine Besylate (Norvasc -) 5 mg PO DAILY [facility] Last Admin: 07/17/16 09:08 Dose: 5 mg Colchicine (Colcrys -) 1.2 mg PO ONCE ONE Stop: 07/17/16 11:20 Febuxostat (Uloric -) 40 mg PO DAILY [facility] Last Admin: 07/17/16 09:08 Dose: 40 mg Heparin Sodium (Porcine) (Heparin -) 5,000 unit SQ TID [facility] Last Admin: 07/17/16 09:08 Dose: 5,000 unit Heparin Sodium (Porcine) (Heparin -) 1,000 unit IVPUSH ONCE ONE Stop: 07/17/16 09:22 Losartan Potassium (Cozaar -) 100 mg PO DAILY [facility] Last Admin: 07/17/16 09:08 Dose: 100 mg Oxycodone HCl (Roxicodone -) 5 mg PO Q6H PRN PRN Reason: PAIN Last Admin: 07/16/16 23:04 Dose: 5 mg Prednisone (Deltasone -) 30 mg PO DAILY ES 41 year old Gentleman wit PMhx of ESRD on HD (TTS), PCKD, Hypertension, Gout who presented with left arm pain and found to have a clotted AVF. #Hemodialysis access complication /dysfunction failed de-clot, now with permacath for new AVF placement this admission # ESRD on HD tolerating dialysis well today #Hypertension BP at goal continue Losartan and Amlodpine #Gout pt with acute flare continue uloric start prednisone pain control Stephan Cunningham DO
[2016-07-17] MEDS: oxyCODONE HCL 5 MG TABLET PO PRN (12:48)
[2016-07-17] MEDS: predniSONE 10 MG TABLET (UD) PO SCH (12:48)
[2016-07-17] MEDS: ACETAMINOPHEN 325 MG TABLET (FP) PO PRN (12:49)
[2016-07-17] MEDS ORDERED: HEPARIN NA (PORCINE) 5,000 UNITS/ML 1ML VIAL IVPUSH ONE (14:45)
[2016-07-17 16:02] LABS: CREATININE 2.3 mg/dL (0.7-1.3)
[2016-07-18] MEDS: HEPARIN NA (PORCINE) 5,000 UNITS/ML 1ML VIAL SQ SCH ×3 (06:52→21:28)
[2016-07-18 07:52] LABS: MCH 28.2 pg (25.7-33.7); MCHC 33.6 g/dl (32.0-35.9); MEAN CELL VOLUME 83.9 fl (80-96); MEAN PLT VOLUME 7.9 fl (7.5-11.1); PLATELET COUNT 175 K/MM3 (134-434); RDW 14.5 % (11.9-15.9); WHITE BLOOD COUNT 11.7 K/mm3 (4.0-10.0)
[2016-07-18 08:25] LABS: CALCIUM 8.3 mg/dL (8.5-10.1); COCKROFT - GAULT 18.16; CREATININE 5.6 mg/dL (0.7-1.3)
[2016-07-18] MEDS ORDERED: PT OWN MED DRAWER 7, Y5N ONE (10:28)
[2016-07-18] MEDS: LOSARTAN POTASSIUM 50 MG TABLET (FP) PO SCH (10:32)
[2016-07-18] MEDS: FEBUXOSTAT 40 MG TAB PO SCH (10:32)
[2016-07-18] MEDS: amLODIPine BESYLATE 5 MG TABLET (FP) PO SCH (10:32)
[2016-07-18] MEDS: predniSONE 10 MG TABLET (UD) PO SCH (10:32)
--- NOTE | 2016-07-18 11:15 | PN ---
Physical Exam: SUBJECTIVE: Patient seen and examined. He is is less pain, he is able to move his hand again today. OBJECTIVE: Vital Signs Period Temp Pulse Resp BP Sys/Hilario Pulse Ox Last 24 Hr 97.8 F-100 F 75-119 18-20 104-162/60-105 96 PE Neuro: alert, awake, cn 2-12intact Pulm: CTAB CV: s1 s2 rrr no mrg Abd: s nt nd +bs ExT: R hand swelling, with warmth-improved, ROM returned, + mild tenderness, LUE AVF no thrill, + sutures in tact Skin: LCW permacath Laboratory Results - last 24 hr 07/17/16 07/17/16 07/17/16 11:30 11:30 14:45 WBC RBC Hgb Hct MCV MCHC RDW Plt Count MPV Neutrophils % Lymphocytes % Sodium Potassium Chloride Carbon Dioxide Anion Gap BUN Creatinine Cancelled Random Glucose Calcium Hepatitis C Antibody Cancelled <0.1 07/17/16 07/18/16 07/18/16 14:45 06:30 06:30 WBC 11.7 H RBC 3.86 L Hgb 10.9 L Hct 32.4 L MCV 83.9 MCHC 33.6 RDW 14.5 Plt Count 175 MPV 7.9 Neutrophils % Y Lymphocytes % Y Sodium 136 Potassium 4.3 Chloride 97 L Carbon Dioxide 26 D Anion Gap 13 BUN 19 H D 48 H D Creatinine 2.3 H 5.6 H D Random Glucose 98 Calcium 8.3 L Hepatitis C Antibody Active Medications Generic Name Dose Route Start Last Admin Trade Name Freq PRN Reason Stop Dose Admin Acetaminophen 325 mg 07/16/16 19:50 07/17/16 12:49 Tylenol - PO 325 mg Q6H PRN Administration FEVER OR PAIN Amlodipine Besylate 5 mg 07/17/16 10:00 07/18/16 10:32 Norvasc - PO 5 mg DAILY ES Administration Febuxostat 40 mg 07/17/16 10:00 07/18/16 10:32 Uloric - PO 40 mg DAILY ES Administration Heparin Sodium (Porcine) 5,000 unit 07/17/16 10:00 07/18/16 06:52 Heparin - SQ 5,000 unit TID ES Administration Losartan Potassium 100 mg 07/17/16 10:00 07/18/16 10:32 Cozaar - PO 100 mg DAILY ES Administration Oxycodone HCl 5 mg 07/16/16 19:50 07/17/16 12:48 Roxicodone - PO 5 mg Q6H PRN Administration PAIN Prednisone 30 mg 07/17/16 11:30 07/18/16 10:32 Deltasone - PO 30 mg DAILY ES Administration Assessment: 41 year old male with PMhx of ESRD on HD (TTS), PCKD, Hypertension, Gout admitted with left arm pain and found to have a clotted AVF. Plan: 1. AVF complication /dysfunction - For Vein mapping of right arm to place new access today - Unsuccessful thrombectomy; LCW Permacath placed 07/16 2. ESRD on HD TTHS - HD yesterday, HD per Renal 3. Hypertension - Losartan 100 - BP improved with Norvasc 5mg, to continue 4. Acute gout flare - Prednisone 30mg (day 2) taper over 5 days - x1 dose colchicine - Continue uloric 5. Leukocytosis - Likely from acute gout flare - Down trending - Will monitor 6. PCKD 7. Anemia - Hgb stable 8. DVT ppx - Heparin sq Visit type - Emergency Visit Emergency Visit: Yes ED Registration Date: 07/15/16 Care time: The patient presented to the Emergency Department on the above date and was hospitalized for further evaluation of their emergent condition. - New Patient This patient is new to me today: No - Critical Care Critical Care patient: No
--- NOTE | 2016-07-18 11:39 | PN ---
Progress Note (short form) - Note Progress Note: Vascular Surgery Pt in [place] right now for vein mapping. Will plan right aVF for benjamín. NPO past midnight CAn go home after avf placement benjamín Castrejon DO
[2016-07-18 12:58] LABS: PLATELET ESTIMATE ADEQUATE (NORMAL)
--- NOTE | 2016-07-18 21:50 | PN ---
Progress Note (short form) - Note Progress Note: Renal Follow up for ESRD on HD Pt seen and examined at the bedside no acute complaints hand pain is improved no fever or chills denies any sob s/p vein mapping Vital Signs Temperature 97.5 F L 07/18/16 16:30 Pulse Rate 86 07/18/16 16:30 Respiratory Rate 20 07/18/16 16:30 Blood Pressure 140/96 07/18/16 16:30 O2 Sat by Pulse Oximetry (%) 100 07/18/16 09:00 gen: NAD, awake and alert CVS: RRR, No M/R Lungs: CTA, no rales or wheeze Abd: soft NT/ND Ext: no edema Access: AVF no thrill or Bruit, permacath in place = CBC, BMP 07/18/16 06:30 07/18/16 06:30 Current Medications Acetaminophen (Tylenol -) 325 mg PO Q6H PRN PRN Reason: FEVER OR PAIN Last Admin: 07/17/16 12:49 Dose: 325 mg Amlodipine Besylate (Norvasc -) 5 mg PO DAILY [facility] Last Admin: 07/18/16 10:32 Dose: 5 mg Febuxostat (Uloric -) 40 mg PO DAILY [facility] Last Admin: 07/18/16 10:32 Dose: 40 mg Heparin Sodium (Porcine) (Heparin -) 5,000 unit SQ TID [facility] Last Admin: 07/18/16 21:28 Dose: 5,000 unit Losartan Potassium (Cozaar -) 100 mg PO DAILY [facility] Last Admin: 07/18/16 10:32 Dose: 100 mg Oxycodone HCl (Roxicodone -) 5 mg PO Q6H PRN PRN Reason: PAIN Last Admin: 07/17/16 12:48 Dose: 5 mg Prednisone (Deltasone -) 30 mg PO DAILY [facility] Last Admin: 07/18/16 10:32 Dose: 30 mg 41 year old Gentleman wit PMhx of ESRD on HD (TTS), PCKD, Hypertension, Gout who presented with left arm pain and found to have a clotted AVF. #Hemodialysis access complication /dysfunction for AVF tomorrow HD tomorrow via permacath # ESRD on HD for dialysis tomorrow UF as tolerated #Hypertension BP at goal continue Losartan and Amlodpine #Gout pt with acute flare continue uloric continue and taper prednisone pain control Stephan Cunningham DO
[2016-07-19 00:10] LABS: HEP B SURFACE AB Non Reactive (.)
[2016-07-19] MEDS: HEPARIN NA (PORCINE) 5,000 UNITS/ML 1ML VIAL SQ SCH ×3 (07:06→22:00)
[2016-07-19 07:23] LABS: BASOPHIL 0.2 % (0-2.0); EOSINOPHIL 0.1 % (0-4.5); MCH 28.3 pg (25.7-33.7); MCHC 33.6 g/dl (32.0-35.9); MEAN CELL VOLUME 84.3 fl (80-96); NEUTROPHILS 80.5 % (42.8-82.8); PLATELET COUNT 184 K/MM3 (134-434); RDW 14.7 % (11.9-15.9); WHITE BLOOD COUNT 11.2 K/mm3 (4.0-10.0)
[2016-07-19 07:45] LABS: CALCIUM 8.2 mg/dL (8.5-10.1); COCKROFT - GAULT 13.93; CREATININE 7.3 mg/dL (0.7-1.3)
[2016-07-19] MEDS: amLODIPine BESYLATE 5 MG TABLET (FP) PO SCH (10:41)
[2016-07-19] MEDS: LOSARTAN POTASSIUM 50 MG TABLET (FP) PO SCH (10:42)
[2016-07-19] MEDS: FEBUXOSTAT 40 MG TAB PO SCH (10:42)
[2016-07-19] MEDS: predniSONE 10 MG TABLET (UD) PO SCH (10:42)
--- NOTE | 2016-07-19 12:46 | PN ---
Progress Note, Physician Chief Complaint: Patient with ESRD, last dialysis two days ago. Scheduled for AVF today. Has a Permacath in the right IJ. Denies any chest pain, Shortness of breath. No urinary complaints. - Current Medication List Current Medications: Active Medications Acetaminophen (Tylenol -) 325 mg PO Q6H PRN PRN Reason: FEVER OR PAIN Last Admin: 07/17/16 12:49 Dose: 325 mg Amlodipine Besylate (Norvasc -) 5 mg PO DAILY [facility] Last Admin: 07/19/16 10:41 Dose: 5 mg Epoetin Amos (Epogen -) 2,000 units IVPUSH ONCE ONE Stop: 07/19/16 06:01 Febuxostat (Uloric -) 40 mg PO DAILY [facility] Last Admin: 07/19/16 10:42 Dose: Not Given Heparin Sodium (Porcine) (Heparin -) 5,000 unit SQ TID [facility] Last Admin: 07/19/16 07:06 Dose: 5,000 unit Losartan Potassium (Cozaar -) 100 mg PO DAILY [facility] Last Admin: 07/19/16 10:42 Dose: 100 mg Oxycodone HCl (Roxicodone -) 5 mg PO Q6H PRN PRN Reason: PAIN Last Admin: 07/17/16 12:48 Dose: 5 mg Prednisone (Deltasone -) 30 mg PO DAILY [facility] Last Admin: 07/19/16 10:42 Dose: Not Given - Objective Vital Signs: Vital Signs Temperature 97.5 F L 07/19/16 09:00 Pulse Rate 53 L 07/19/16 09:00 Respiratory Rate 20 07/19/16 09:00 Blood Pressure 156/95 07/19/16 09:00 O2 Sat by Pulse Oximetry (%) 99 07/18/16 21:00 Constitutional: Yes: Well Nourished, Calm Eyes: Yes: WNL HENT: Yes: WNL Neck: Yes: Tenderness (over the IJ catheter exit) Cardiovascular: Yes: Regular Rate and Rhythm, S1, S2 Respiratory: Yes: CTA Bilaterally Gastrointestinal: Yes: Normal Bowel Sounds, Soft Labs: CBC, BMP 07/19/16 06:10 07/19/16 06:10 INR, PTT INR 0.97 (0.82-1.09) 07/15/16 12:30 Problem List - Problems (1) AV fistula thrombosis Code(s): T82.868A - THROMBOSIS DUE TO VASCULAR PROSTH DEV/GRFT, INIT Qualifiers: Encounter type: initial encounter Qualified Code(s): T82.868A - Thrombosis due to vascular prosthetic devices, implants and grafts, initial encounter (2) Anemia Code(s): D64.9 - ANEMIA, UNSPECIFIED (3) HTN (hypertension) Code(s): I10 - ESSENTIAL (PRIMARY) HYPERTENSION Assessment/Plan 41 y/o male with ESRd for AVF surgery today. The right Arm AVF is clotted and without ant bruit. The patient is scheduled for creation of new AVF today. Orders for dialysis reviewed with the rapier insertion loom fixer.
[2016-07-19] MEDS ORDERED: HEPARIN NA (PORCINE) 5,000 UNITS/ML 1ML VIAL ONE (13:47)
[2016-07-19] MEDS ORDERED: LIDOCAINE HCL 1%, 10 MG/ML (20ML VIAL) ONE (13:47)
[2016-07-19] MEDS ORDERED: POVIDONE-IODINE OINTMENT 10% - 28.4 GM TUBE ONE (13:52)
[2016-07-19] MEDS ORDERED: EPOETIN ALFA 2,000 UNITS/1 ML VIAL IVPUSH ONE ×2 (14:45→19:00)
--- NOTE | 2016-07-19 14:51 | PN ---
Physical Exam: SUBJECTIVE: Patient seen and examined. He denies any pain/discomfort. OBJECTIVE: Patient is scheduled for new AVF today, then dialysis. Vital Signs Period Temp Pulse Resp BP Sys/Hilario Pulse Ox Last 24 Hr 97.5 F-98.6 F 53-86 18-20 135-156/91-100 99-99 GENERAL: The patient is awake, alert, and fully oriented, in no acute distress. HEAD: Normal with no signs of trauma. EYES: PERRL, extraocular movements intact, sclera anicteric, conjunctiva clear. No ptosis. ENT: Ears normal, nares patent, oropharynx clear without exudates, moist mucous membranes. HEART: Regular rate and rhythm ABDOMEN: Soft, nontender, nondistended, normoactive bowel sounds, no guarding, no rebound, no hepatosplenomegaly, no masses. EXTREMITIES: no edema, left upper arm with minimal bruit/thrill NEUROLOGICAL: Normal speech, gait not observed. PSYCH: Normal mood, normal affect. SKIN: Warm, dry, normal turgor, no rashes or lesions noted Laboratory Results - last 24 hr 07/17/16 07/19/16 07/19/16 11:30 06:10 06:10 WBC 11.2 H RBC 3.67 L Hgb 10.4 L Hct 30.9 L MCV 84.3 MCHC 33.6 RDW 14.7 Plt Count 184 MPV 8.0 Neutrophils % 80.5 Lymphocytes % 11.5 D Monocytes % 7.7 D Eosinophils % 0.1 D Basophils % 0.2 Sodium 136 Potassium 4.3 Chloride 96 L Carbon Dioxide 25 Anion Gap 15 BUN 79 H D Creatinine 7.3 H D Random Glucose 97 Calcium 8.2 L Hep A IgM Ab Confirm Negative Hepatitis A Ab Total Positive H Hep Bs Antigen Negative Hep Bs Antibody Non reactive Hep B Core Total Ab Negative Active Medications Generic Name Dose Route Start Last Admin Trade Name Freq PRN Reason Stop Dose Admin Acetaminophen 325 mg 07/16/16 19:50 07/17/16 12:49 Tylenol - PO 325 mg Q6H PRN Administration FEVER OR PAIN Amlodipine Besylate 5 mg 07/17/16 10:00 07/19/16 10:41 Norvasc - PO 5 mg DAILY ES Administration Febuxostat 40 mg 07/17/16 10:07/19/16 10:42 Uloric - PO Not Given DAILY [facility] Heparin Sodium (Porcine) 5,000 unit 07/17/16 10:00 07/19/16 14:08 Heparin - SQ Not Given TID ES Losartan Potassium 100 mg 07/17/16 10:00 07/19/16 10:42 Cozaar - PO 100 mg DAILY ES Administration Oxycodone HCl 5 mg 07/16/16 19:50 07/17/16 12:48 Roxicodone - PO 5 mg Q6H PRN Administration PAIN Prednisone 30 mg 07/17/16 11:30 07/19/16 10:42 Deltasone - PO Not Given DAILY ES ASSESSMENT/PLAN: Patient is a 41 year old male with a past medical history of hypertensin, gout and ESRD who is currently on outpatient dialysis x 6 months. He is on a , , Sat. schedule. He was admitted on 06/18/2016 with left arm pain and found to have a clotted left arm fistula. Prior to admission, his last dialysis was on 07/14/2016. : Left arm non working AVF - acute Assessment/Plan: For new AVF of right arm today, then dialysis He had an unsuccessful thrombectomy and a Permacath was placed on 07/16 Had dialysis on July 17, will get dialysis today after AVF of right arm Monitor Likely discharge tomorrow Cardiology: Hypertension - chronic Assessment/Plan: on Losartan 100 mg and Norvasc 5mg daily Monitor BP F.E.N. Fluids: tolerating PO Electrolytes: Monitor with daily BMP Nutrition: renal diet Prophylaxis: DVT: heparin GI: Protonix while on steroids Disposition: Requires inpatient hospitalization. Discharge tomorrow. Full code. Visit type - Emergency Visit Emergency Visit: Yes ED Registration Date: 07/15/16 Care time: The patient presented to the Emergency Department on the above date and was hospitalized for further evaluation of their emergent condition. - New Patient This patient is new to me today: Yes Date on this admission: 09/11/16 - Critical Care Critical Care patient: No - Discharge Referral Referred to [facility] Med P.C.: No
[2016-07-19] MEDS ORDERED: ROPIVACAINE HCL 0.5% 30ML VIAL ONE (14:52)
[2016-07-19] MEDS ORDERED: MIDAZOLAM HCL 2 MG/2 ML SINGLE DOSE VIAL ONE ×2 (14:53)
[2016-07-19] MEDS ORDERED: ONDANSETRON 4 MG/2 ML VIAL IVPUSH PRN ×2 (15:32→18:05)
[2016-07-19] MEDS ORDERED: oxyCODONE HCL 5 MG TABLET PO PRN ×3 (15:32→18:05)
[2016-07-19] MEDS ORDERED: ceFAZolin SODIUM 1 GM VIAL IVPB ONE (15:45)
[2016-07-19] MEDS ORDERED: LACTATED RINGERS SOLUTION 1,000 ML IV SCH ×2 (15:45→18:05)
[2016-07-19] MEDS ORDERED: PROPOFOL 20 ML ONE (16:42)
--- NOTE | 2016-07-19 17:16 | OP ---
Operative Note - Note: Operative Date: 07/19/16 Pre-Operative Diagnosis: ESRD Operation: Creation of right aVF Post-Operative Diagnosis: Same as Pre-op Surgeon: Blaze Castrejon Anesthesia: Fractional Estimated Blood Loss (mls): 20 Operative Report Dictated: Yes
[2016-07-19] MEDS ORDERED: ACETAMINOPHEN 325 MG TABLET (FP) PO PRN (18:05)
[2016-07-19 19:19] LABS: MCH 27.6 pg (25.7-33.7); MCHC 32.6 g/dl (32.0-35.9); MEAN CELL VOLUME 84.6 fl (80-96); MEAN PLT VOLUME 8.2 fl (7.5-11.1); PLATELET COUNT 183 K/MM3 (134-434); RDW 14.6 % (11.9-15.9); WHITE BLOOD COUNT 8.3 K/mm3 (4.0-10.0)
[2016-07-20] MEDS: HEPARIN NA (PORCINE) 5,000 UNITS/ML 1ML VIAL SQ SCH ×2 (05:32→14:14)
[2016-07-20 08:28] LABS: MCH 29.7 pg (25.7-33.7); MCHC 34.8 g/dl (32.0-35.9); MEAN CELL VOLUME 85.3 fl (80-96); MEAN PLT VOLUME 7.8 fl (7.5-11.1); PLATELET COUNT 218 K/MM3 (134-434); RDW 14.7 % (11.9-15.9); WHITE BLOOD COUNT 10.7 K/mm3 (4.0-10.0)
[2016-07-20] MEDS ORDERED: predniSONE 10 MG TABLET (UD) PO SCH (10:00)
[2016-07-20] MEDS ORDERED: FEBUXOSTAT 40 MG TAB PO SCH (10:00)
[2016-07-20] MEDS ORDERED: LOSARTAN POTASSIUM 50 MG TABLET (FP) PO SCH (10:00)
[2016-07-20] MEDS ORDERED: PANTOPRAZOLE 40 MG TABLET (FP) PO SCH ×2 (10:00)
[2016-07-20] MEDS ORDERED: amLODIPine BESYLATE 5 MG TABLET (FP) PO SCH (10:00)
[2016-07-20 10:20] LABS: ALBUMIN 1.5 g/dl (3.4-5.0); BILIRUBIN,TOTAL 1.2 mg/dL (0.2-1.0); CALCIUM 7.7 mg/dL (8.5-10.1); COCKROFT - GAULT 26.01; TOT PROT 5.6 g/dl (6.4-8.2)
[2016-07-20] MEDS ORDERED: PT OWN MED DRAWER 7, Y5N ONE (10:30)
[2016-07-20 13:18] LABS: PLATELET ESTIMATE ADEQUATE (NORMAL)
--- NOTE | 2016-07-20 14:14 | PN ---
Progress Note (short form) - Note Progress Note: s/p avf creation being d/c today with a otilia bragg
[2016-07-20 15:38] VITALS: BP 130/90
[2016-07-20 15:39] VITALS: PULSE 82; TEMP 98.5
--- NOTE | 2016-07-20 15:53 | DS ---
Physical Exam: SUBJECTIVE: Patient seen and examined OBJECTIVE: Vital Signs Period Temp Pulse Resp BP Sys/Hilario Pulse Ox Last 24 Hr 97 F-98.5 F 53-105 14-20 92-143/55-90 97-100 PHYSICAL EXAM GENERAL: The patient is awake, alert, and fully oriented, in no acute distress. HEAD: Normal with no signs of trauma. EYES: PERRL, extraocular movements intact, sclera anicteric, conjunctiva clear. No ptosis. ENT: Ears normal, nares patent, oropharynx clear without exudates, moist mucous membranes. HEART: Regular rate and rhythm ABDOMEN: Soft, nontender, nondistended, normoactive bowel sounds, no guarding, no rebound, no hepatosplenomegaly, no masses. EXTREMITIES: no edema, left upper arm with minimal bruit/thrill NEUROLOGICAL: Normal speech, gait not observed. PSYCH: Normal mood, normal affect. SKIN: Warm, dry, normal turgor, no rashes or lesions noted LABS Laboratory Results - last 24 hr 07/19/16 07/19/16 07/20/16 18:30 18:30 06:30 WBC 8.3 10.7 H RBC 3.68 L 4.18 Hgb 10.1 L 12.4 D Hct 31.1 L 35.7 MCV 84.6 85.3 MCHC 32.6 34.8 RDW 14.6 14.7 Plt Count 183 218 MPV 8.2 7.8 Neutrophils % 71.0 Lymphocytes % 19.0 D Monocytes % 6.0 Eosinophils % 2.0 D Band Neutrophils 2.0 Platelet Estimate Adequate Platelet Comment No clumping noted Sodium Potassium Chloride Carbon Dioxide Anion Gap BUN Creatinine Creat Clearance w eGFR Random Glucose Calcium Phosphorus 6.7 H D Total Bilirubin AST ALT Alkaline Phosphatase Total Protein Albumin 07/20/16 06:30 WBC RBC Hgb Hct MCV MCHC RDW Plt Count MPV Neutrophils % Lymphocytes % Monocytes % Eosinophils % Band Neutrophils Platelet Estimate Platelet Comment Sodium 140 Potassium 3.4 L D Chloride 106 D Carbon Dioxide 20 L Anion Gap 14 BUN 68 H Creatinine 4.0 H D Creat Clearance w eGFR 16.55 Random Glucose 112 H Calcium 7.7 L Phosphorus Total Bilirubin 1.2 H D AST 18 D ALT 25 D Alkaline Phosphatase 229 H D Total Protein 5.6 L Albumin 1.5 L D HOSPITAL COURSE: Date of Admission:07/15/16 Date of Discharge: 07/20/16 Patient is a 41 year old male with a past medical history of hypertensin, gout and ESRD who is currently on outpatient dialysis x 6 months. He is on a , , Sat. schedule. He was admitted on 06/18/2016 with left arm pain and found to have a clotted left arm fistula. Prior to admission, his last dialysis was on 07/14/2016. : Left arm non working AVF - s/p avf creation being d/c today with a l ij permacath Assessment/Plan: For new AVF of right arm today, then dialysis He had an unsuccessful thrombectomy and a Permacath was placed Cardiology: Hypertension - chronic Assessment/Plan: on Losartan 100 mg and Norvasc 5mg daily Monitor BP Acute gout flare Assessment/Plan: Prednisone taper ordered Disposition: Discharge today. Full code. Minutes to complete discharge: 60 Discharge Summary Reason For Visit: AV FISTULA THROMBOSIS Current Active Problems AV fistula thrombosis (Acute) Condition: Stable - Instructions Diet, Activity, Other Instructions: Please taper Prednisone as follows, you may want to follow up with Dr. Jacome and Dr. Octavio Rothman for further instructions. Date Dose 07/21/2016 Take Prednisone 30mg daily in a.m. 07/22/2016 Take Prednisone 20mg daily in a.m. 07/23/2016 Take Prednisone 20mg daily in a.m. 07/24/2016 Take Prednisone 10mg daily in a.m. 07/25/2016 Take Prednisone 10mg daily in a.m. 07/26/2016 Take Prednisone 5mg daily in a.m. 07/27/2016 Take Prednisone 5mg daily in a.m. Then stop taking prednisone on 07/28/2016 Please report any pain, swelling or red steaks of right arm. If you experience any of these symptoms, please return to the ER. No weight bearing of the right arm, no venous punctures or blood pressures of right arm. Please do not wet permacath and maintain sterile dressing at all times. Resume dialysis tomorrow. Referrals: Stephan Cunningham MD [Primary Care Provider] - Disposition: HOME - Home Medications Comprehensive Discharge Medication List: Ambulatory Orders Losartan Potassium 100 mg PO DAILY 01/30/16 Prednisone [Deltasone -] 20 mg PO DAILY #11 tablet 05/12/16 Febuxostat [Uloric -] 40 mg PO DAILY 07/15/16 Amlodipine Besylate [Norvasc -] 5 mg PO DAILY tablet 07/20/16 Amlodipine Besylate [Norvasc -] 5 mg PO DAILY #30 tablet 07/20/16 Febuxostat [Uloric -] 40 mg PO DAILY tab 07/20/16 Losartan Potassium [Cozaar -] 100 mg PO DAILY tablet 07/20/16 Pantoprazole Sodium [Protonix -] 40 mg PO DAILY #10 tab 07/20/16 Pantoprazole Sodium [Protonix -] 40 mg PO DAILY #10 tab 07/20/16 Prednisone [Deltasone -] 30 mg PO DAILY tablet 07/20/16 Prednisone [Deltasone -] 30 mg PO DAILY tablet 07/20/16 This patient is new to me today: Yes Date on this admission: 09/11/16 Emergency Visit: Yes ED Registration Date: 07/15/16 Care time: The patient presented to the Emergency Department on the above date and was hospitalized for further evaluation of their emergent condition. Critical Care patient: No - Discharge Referral Referred to [facility] Med [facility].C.: No
--- NOTE | 2016-07-24 14:26 | OP ---
DATE OF OPERATION: 07/19/2016 PREOPERATIVE DIAGNOSIS: End-stage renal disease. POSTOPERATIVE DIAGNOSIS: End-stage renal disease. PROCEDURE: Creation of right cephalic vein to brachial artery fistula. SURGEON: Blaze Valle DO ANESTHESIA: Fractional. ESTIMATED BLOOD LOSS: 20 mL. INDICATIONS: The patient is a 41-year-old male who comes in with a failed left AV fistula that was clotted and could not be declotted and had a Perma-Cath placed in his left chest. He now needs permanent dialysis access. He had vein mapping performed in ultrasound, and it showed a good cephalic vein above the antecubital space. It was decided that he would need a left AV fistula with cephalic vein. The patient was consented for the procedure understanding all risks, benefits, and alternatives and was then brought to the operating room. DESCRIPTION OF PROCEDURE: Once in the operating room, he was laid on the operating table in supine manner. The area of the left arm was prepped and draped in a sterile surgical manner. Under ultrasound guidance, we did map out the cephalic vein, and that was marked on the skin, and the brachial artery was marked on the skin under ultrasound guidance. We then were able to ingrid with a transverse incision encompassing both the vein and the artery above the antecubital space. We then injected 15 mL of lidocaine 1% in the area, and we then made a 7-cm incision using a 15 blade. Bovie electrocautery was used to control hemostasis. We got down through all of the subcutaneous tissue. We then dissected out the cephalic vein anteriorly and posteriorly and proximally and distally, and branches of the cephalic vein were ligated using 4-0 silk. Once we dissected out a good portion, we then went medially. We then went ahead and went medially and went through the bicipital aponeurosis, and we were able to get down to the brachial artery. The brachial artery was dissected anteriorly and posteriorly, and Vessel Loops were placed around it. At this point, 5000 units of IV heparin were administered to the patient. We then went ahead and ligated our vein distally using 3-0 silk. We then placed a 4-Honduran feeding tube into the vein, and there was good flow on the back bleeding, and we were able to dilate the vein appropriately using saline. We then went ahead and transposed the vein over to the brachial artery. After 3 minutes of being on IV heparin, we got proximal and distal control on the artery. We then went ahead and made a 7-mm venotomy using Bravo scissors on the vein. We then went ahead and used a No. 15 blade and made an arteriotomy extended to 7 mm using Bravo scissors. We then placed 6-0 Prolene stay sutures. We then used 6-0 Prolene double arm in the vein and extended on the artery and ran the suture around and forming anastomosis between the artery and the vein. Once completed, we opened the distal artery first and then the proximal artery, and the vein dilated up appropriately, and there was a good thrill in the vein going up the arm. At this point, we irrigated the vein copiously. Then 3-0 Vicryl was used, and the subcutaneous tissue was reapproximated in an interrupted manner. The skin was closed with skin veronica. The area was wet and dried. Then 4x4 Tegaderms were placed. The patient tolerated the procedure well with no complication. The patient was transferred back in stable condition. Total blood loss 20 mL. BLAZE VALLE DO [id number]
--- NOTE | 2016-07-26 15:31 | OP ---
DATE OF OPERATION: 07/16/2016 PREOPERATIVE DIAGNOSIS: End-stage renal disease with a clotted left arteriovenous fistula. POSTOPERATIVE DIAGNOSIS: End-stage renal disease with a clotted left arteriovenous fistula. OPERATION: Venogram; suction thrombectomy, left arteriovenous fistula; insertion of PermCath. SURGEON: Blaze Valle DO ANESTHESIA: Fractional. BLOOD LOSS: 30 mL. INDICATIONS: The patient is a 41-year-old male who comes in with a clotted left AV fistula. It was decided that he would need to have it declotted. If we could not declot it, he will probably need hemodialysis access in the form of a PermCath. DESCRIPTION: Patient was consented for the procedure, understanding all risks, benefits, alternatives. He was then taken to the operating room. Once in the operating room, he was laid on operating table in supine manner, and the area of the left arm was prepped and draped in a sterile surgical manner. We then went ahead and, under ultrasound guidance, visualized the proximal AV fistula and we went ahead and we were able to then place a micropuncture needle into the proximal AV fistula. Micropuncture wire was inserted. A traditional short 6-Honduran sheath was then placed. We then shot a venogram by hand injection, showing that the fistula was clotted. We placed a 0.035 floppy guidewire into the fistula and up into the central veins. We then used an AVX suction thrombectomy catheter and performed suction thrombectomy of the AV fistula; however, the fistula was very clotted and very narrow and you could not completely bring the AVX catheter up. At this point we decided that the fistula is not opening and the vein is closed. We used a 4-0 Biosyn stitch and placed a sldmey-rj-ufoie stitch around our sheath and the sheath was pulled. At this point a band-aid was placed, and the area was wet and dried. We then went ahead and prepped and draped the left neck and chest in a sterile surgical manner. Under ultrasound guidance, we did visualize the left internal jugular vein. Then 10 mL lidocaine 1% was injected over it. We then used a micropuncture needle and punctured the left internal jugular vein under ultrasound guidance. Micropuncture wire was inserted. Micropuncture sheath was inserted and a 0.035 floppy guidewire was inserted under fluoroscopy. Then 10 mL lidocaine 1% was injected above and below the clavicle then. We then went ahead and used a number 11 blade and made a 1-cm in at the puncture site. Using a 15 blade, we made a 1-cm below the clavicle. We then tunneled the PermCath up to the puncture site. We then placed a breakaway sheath over the guidewire and surveyed it under fluoroscopy, and the cannula and guidewire were removed. Catheter was placed inside the sheath. The sheath was broken away as the catheter was placed inside the vein. The neck of the catheter was nice and smooth. The tip of the catheter was located outside the right atrium. We then jorge alberto back on each port of the catheter and there was good flow. Heparinized saline was injected, 2000 units of IV heparin was injected. A 3-0 nylon was used in the catheter sites of skin, 4-0 Biosyn was used and 2 simple stitches placed at puncture site. Steri-Strips, 4x4, Tegaderms were placed. We used a 27-cm PermCath. Patient tolerated the procedure, no complication. Patient transferred to PACU in stable condition, where a chest x-ray will be obtained. BLAZE VALLE DO [id number]
== END 2016-07-20 18:36 | disposition home or self-care (01) | DRG 252 ==
LOC: JER 10:23 → JERBED 12:41 → UNDOADMIN 12:53 → J8W 20:04
PROVIDERS: ADMIT Internal Medicine; ATTEND Nurse Practitioner Family
PROC: 05HN33Z Insertion of Infusion Device into Left Internal Jugular Vein, Percutaneous Approach (ICD-10-PCS; 2016-07-16)
PROC: B50NYZZ Plain Radiography of Left Upper Extremity Veins using Other Contrast (ICD-10-PCS; 2016-07-16)
PROC: 05CF3ZZ Extirpation of Matter from Left Cephalic Vein, Percutaneous Approach (ICD-10-PCS; principal; 2016-07-16 12:00)
PROC: 031 Upper Arteries, Bypass (ICD-10-PCS; 2016-07-19)
DX: T82.868A Thrombosis due to vascular prosthetic devices, implants and grafts, initial encounter (principal); N18.6 End stage renal disease; I12.0 Hypertensive chronic kidney disease with stage 5 chronic kidney disease or end stage renal disease; Q61.3 Polycystic kidney, unspecified; Y83.8 Other surgical procedures as the cause of abnormal reaction of the patient, or of later complication, without mention of misadventure at the time of the procedure; Y92.9 Unspecified place or not applicable; Z99.2 Dependence on renal dialysis; M10.9 Gout, unspecified; D64.9 Anemia, unspecified; D72.829 Elevated white blood cell count, unspecified
CPT/HCPCS: 36415; 71010-TC; 76000-TC; 80048; 80053; 82565; 83735; 84100; 84132; 84520; 84550; 85025; 85027; 85610; 85730; 86704; 86706; 86708; 86850; 86900; 86901; 87340; 93005; 93010; 93931; 93971; 94760; 99283-25; J0885; J1644

== ENCOUNTER 2018-02-20 13:52 | Emergency (ER) | payer OTHER ==
[2018-02-20 14:27] VITALS: TEMP 98.7; BMI 27.3
--- NOTE | 2018-02-20 14:27 | PDOC ---
Rapid Medical Evaluation Time Seen by Provider: 02/20/18 14:25 Medical Evaluation: Allergies Allergy/AdvReac Type Severity Reaction Status Date / Time No Known Allergies Allergy Verified 01/06/18 11:24 I have performed a brief in-person evaluation of this patient. The patient presents with a chief complaint of: urinating blood. On dialysis. Had HD today Pertinent physical exam findings: BP 171/100; HR 107 I have ordered the following: labs, UA/culture The patient will proceed to the ED for further evaluation. Discharge Disposition - Diagnosis Hematuria - Referrals - Patient Instructions - Post Discharge Activity
[2018-02-20 15:10] LABS: BASO % 0.7 % (0-2.0); EOS % 4.1 % (0-4.5); HEMOGLOBIN 12.4 GM/dL (11.7-16.9); LYMPH % 17.6 % (8-40); MCH 27.7 pg (25.7-33.7); MCHC 33.5 g/dl (32.0-35.9); MEAN CELL VOLUME 82.6 fl (80-96); MEAN PLT VOLUME 7.7 fl (7.5-11.1); MONO % 8.8 % (3.8-10.2); NEUT % 68.8 % (42.8-82.8); PLATELET COUNT 265 K/MM3 (134-434); RBC 4.47 M/mm3 (4.00-5.60); RDW 13.5 % (11.9-15.9); WHITE BLOOD COUNT 8.4 K/mm3 (4.0-10.0)
--- NOTE | 2018-02-20 15:31 | PDOC ---
History of Present Illness - General Chief Complaint: Hematuria Stated Complaint: BLOOD IN URINE Time Seen by Provider: 02/20/18 14:25 History Source: Patient Exam Limitations: No Limitations - History of Present Illness Initial Comments: 42 YOM with h/o PCKD on ESRD for the past 1.5 years (//Sat with normal treatment this morning and no recent missed treatments, AVF to RUE)m Recent AK s /p stent, and HTN who comes to the ER because of hematuria since last night. He also had slight hematuria this morning. He had his dialysis today and came to the ER after dialysis to figure out why he was experiencing hematuria. He also endorses a mild headache along with nausea. He also endorses significant shortness of breath with physical exertion but no orthopnea, or inability to lie flat. He denies recent fevers, chills or infections. Denies any chest pain. Denies abdominal pain, RUQ pain, back pain, diarrhea or constipation. Private Chef: Dr. Cunningham PCP: None Social Hx: Denies smoking, drinking, or illicit drug usage Allergies: NKA, NKDA Psh: Stent Past History - Past Medical History Allergies/Adverse Reactions: Allergies Allergy/AdvReac Type Severity Reaction Status Date / Time No Known Allergies Allergy Verified 02/20/18 14:27 Home Medications: Ambulatory Orders Unobtainable 02/20/18 Anemia: No Asthma: No Cancer: No Cardiac Disorders: No CVA: No COPD: No CHF: No Dementia: No Diabetes: No Dialysis: Yes (, , sat.) GI Disorders: No Disorders: No HTN: Yes Hypercholesterolemia: No Kidney Stones: (Renal insufficiency) Liver Disease: No Seizures: No Thyroid Disease: No - Surgical History Abdominal Surgery: No Appendectomy: No Cardiac Surgery: No Cholecystectomy: No Lung Surgery: No Neurologic Surgery: No Orthopedic Surgery: No - Suicide/Smoking/Psychosocial Hx Smoking History: Never smoked Have you smoked in the past 12 months: No Hx Alcohol Use: No Drug/Substance Use Hx: No Substance Use Type: None Hx Substance Use Treatment: No Review of Systems - Review of Systems Comments:: CONSTITUTIONAL: Present: Fatigue Absent: fever, no chills EYES: Absent: visual changes ENT: Absent: ear pain, no sore throat CARDIOVASCULAR: Absent: chest pain, no palpitations RESPIRATORY: Present: SOB Absent: cough GI: Absent: abdominal pain, no nausea, no vomiting, no constipation, no diarrhea GENITOURINARY: Present: Hematuria Absent: dysuria, no frequency MUSKULOSKELETAL: Absent: back pain, no arthralgia, no myalgia SKIN: Absent: rash NEURO: Present: headache *Physical Exam - Vital Signs Last Vital Signs Temp Pulse Resp BP Pulse Ox 98.7 F 107 H 18 171/100 H 100 02/20/18 14:24 02/20/18 14:24 02/20/18 14:24 02/20/18 14:24 02/20/18 14:24 - Physical Exam Comments: BP at bedside: 154/90 GENERAL: Well-appearing, well-nourished. No apparent distress. HEENT: Normocephalic, atraumatic. PERRL, EOM intact. CARDIOVASCULAR: Normal S1, S2. Regular rate and rhythm. PULMONARY: Clear to auscultation bilaterally. ABDOMEN: Soft, non-distended, non-tender. EXTREMITIES: Normal ROM in all four extremities. No gross deformities. SKIN: Warm, dry. No rash NEUROLOGICAL: No focal neurological deficits. Moderate Sedation - Procedure Monitoring Vital Signs: Procedure Monitoring Vital Signs Temperature 98.7 F 02/20/18 14:24 Pulse Rate 107 H 02/20/18 14:24 Respiratory Rate 18 02/20/18 14:24 Blood Pressure 171/100 H 02/20/18 14:24 O2 Sat by Pulse Oximetry (%) 100 02/20/18 14:24 ED Treatment Course - LABORATORY CBC & Chemistry Diagram: 02/20/18 14:46 02/20/18 14:46 - ADDITIONAL ORDERS Additional order review: 02/20/18 14:46 RBC 4.47 MCV 82.6 MCHC 33.5 RDW 13.5 MPV 7.7 Neutrophils % 68.8 D Lymphocytes % 17.6 D Monocytes % 8.8 Eosinophils % 4.1 Basophils % 0.7 Medical Decision Making - Medical Decision Making 42 YOM with h/o PCKD on ESRD for the past 1.5 years (T//Sat with normal treatment this morning and no recent missed treatments, AVF to RUE)m Recent AK s /p stent, and HTN who comes to the ER because of hematuria since last night. DDX IBNLT: PCKD exacerbation, trauma induced hematuria, UTI/pylo, worsening kidney function, ACS/AK, Heart failure, dehydration, infection. Plan: Cbc, Cmp, Trop, Bnp, Ekg, Ua/Uc, re-assess. UA showed hematuria Trop elevated to 0.06 EKG, cbc, cmp otherwise non-remarkable. Repeat trop at 4 hours still at 0.06. Will DC with Nephro, cardio, and uro follow up *DC/Admit/Observation/Transfer Diagnosis at time of Disposition: Hematuria - Discharge Dispostion Disposition: HOME Condition at time of disposition: Stable Decision to Admit order: No - Referrals Referrals: Stephan Cunningham MD [Staff Physician] - - Patient Instructions Printed Discharge Instructions: DI for Hematuria Additional Instructions: You came into the ER with hematuria. We did some tests and determined you are not having a heart attack and are not in renal failure. It is important for you to schedule a follow up appointment with 3 doctors in the next 3 to 5 days: 1) your urologist 2) your line servicer 3) Your network controller Come back to the emergency room if you develop extreme pain, have a fever, or any other new or worsening concerns. Thank you for coming to the [facility] ER. We hope you feel better soon! Print Language: TUVALUAN - Post Discharge Activity
[2018-02-20 15:51] LABS: URINE APPEARANCE CLEAR; URINE BILIRUBIN NEGATIVE (<2.0 mg/dL); URINE COLOR RED; URINE GLUCOSE (UA) 1+ (NEGATIVE); URINE KETONE NEGATIVE (NEGATIVE); URINE LEUK ESTERASE TRACE (NEGATIVE); URINE NITRITE NEGATIVE (NEGATIVE); URINE PROTEIN 2+ (NEGATIVE); URINE UROBILINOGEN NEGATIVE mg/dL (0.2-1.0)
[2018-02-20 16:08] LABS: ALK PHOS 82 U/L (45-117); ANION GAP 12 MMOL/L (8-16); BILIRUBIN,TOTAL 0.4 mg/dL (0.2-1); BLOOD UREA NITROGEN 21 mg/dL (7-18); CALCIUM 8.8 mg/dL (8.5-10.1); CHLORIDE 100 mmol/L (98-107); CO2 26 mmol/L (21-32); GLUCOSE,RANDOM 94 mg/dL (74-106); POTASSIUM 3.9 mmol/L (3.5-5.1); SGOT/AST 13 U/L (15-37); SGPT/ALT 27 U/L (13-61); SODIUM 137 mmol/L (136-145); TOT PROT 7.8 g/dl (6.4-8.2)
--- NOTE | 2018-02-20 19:03 | PDOC ---
Attending Attestation - Resident Resident Name: Man Vargas - ED Attending Attestation I have performed the following: I have examined & evaluated the patient, The case was reviewed & discussed with the resident, I agree w/resident's findings & plan, Exceptions are as noted - HPI HPI: 02/20/18 18:56 42 M with h/o PCKD, ESRD on //Sat, CAD/SD, presenting to ED with hematuria since yesterday. Pt endorses mild dysuria. Denies flank pain. Denies F/C. Pt's BP noted to be elevated in triage, but pt denies CP/SOB. Denies leg swelling. - Physicial Exam PE: 02/20/18 19:00 GENERAL: Awake, alert, and fully oriented, in no acute distress. HEAD: No signs of trauma EYES: PERRLA, EOMI, sclera anicteric, conjunctiva clear ENT: Auricles normal inspection, hearing grossly normal, nares patent, oropharynx clear without exudates. Moist mucosa NECK: Nontender, no stepoffs, Normal ROM, supple, no lymphadenopathy, JVD, or masses LUNGS: Breath sounds equal, clear to auscultation bilaterally. No wheezes, and no crackles HEART: Regular rate and rhythm, normal S1 and S2, no murmurs, rubs or gallops ABDOMEN: Soft, nontender, normoactive bowel sounds. No guarding, no rebound. No masses EXTREMITIES: Normal range of motion, no edema. No clubbing or cyanosis. No cords, erythema, or tenderness NEUROLOGICAL: Cranial nerves II through XII intact. 5/5 strength and sensation in all extremities, Normal speech, normal gait, normal cerebellar function SKIN: Warm, Dry, normal turgor, no rashes or lesions noted. - Medical Decision Making 02/20/18 19:00 42 M with hematuria. UA consistent with UTI, likely hemorrhagic cystitis. - Labs ordered in triage for pt's asymptomatic HTN notable for trop 0.06 Pt adamantly denies any CP/SOB. Likely has chronically elevated trop 2/2 ESRD Trop repeated, stable at 0.06 over 4 hours. Unlikely ACS. Will tx for cystitis and f/u with urology and cardiology. Pt is well appearing, with normal vitals. Clinically stable for DC at this time. I discussed the physical exam findings, ancillary test results and final diagnoses with the patient. I answered all of the patient's questions. The patient was satisfied with the care received and felt comfortable with the discharge plan and treatment plan. The patient agrees to follow up with the primary care physician within 24-72 hours.
[2018-02-20 19:15] VITALS: BP 151/95; PULSE 88
[2018-02-21 11:18] LABS: N-TERMINAL BNP 19150.1 pg/ml (5-125)
--- NOTE | 2018-02-21 11:47 | EKG ---
Test Reason : Blood Pressure : / mmHG Vent. Rate : 087 BPM Atrial Rate : 087 BPM P-R Int : 138 ms QRS Dur : 084 ms QT Int : 350 ms P-R-T Axes : 042 035 063 degrees QTc Int : 421 ms NORMAL SINUS RHYTHM NONSPECIFIC T WAVE ABNORMALITY ABNORMAL ECG WHEN COMPARED WITH ECG OF 18-OCT-2017 06:06, NONSPECIFIC T WAVE ABNORMALITY NOW EVIDENT IN LATERAL LEADS Confirmed by TORRI JONES, AUSTYN ([id number]) on 02/21/2018 11:47:05 AM Referred By: Confirmed By:ASUTYN WILD MD
== END 2018-02-20 19:23 | disposition home or self-care (01) ==
LOC: JER 13:52
DX: R31.9 Hematuria, unspecified (principal); I12.0 Hypertensive chronic kidney disease with stage 5 chronic kidney disease or end stage renal disease; N18.6 End stage renal disease; Z99.2 Dependence on renal dialysis
CPT/HCPCS: 36415; 80053; 81003; 81015; 83880; 84484; 85025; 87086; 93005; 93010; 99284-25

== ENCOUNTER 2019-03-30 08:39 | Inpatient (IN) | payer OTHER ==
--- NOTE | 2019-03-30 09:37 | PDOC ---
History of Present Illness - General Chief Complaint: Chest Pain Stated Complaint: CHEST PAIN Time Seen by Provider: 03/30/19 09:36 History Source: Patient Exam Limitations: No Limitations - History of Present Illness Initial Comments: Miguel Varghese is a 43 yo M w a hx of [place] s/p stent, PCKD on ESRD for the past 2 years (//Sat - AVF to [facility]), and HTN who presents to the [facility] er with two days of worsening right sided chest pain which radiates to the back and is associated with fevers, chills, and a productive cough with increased sputum production. The patient states he has also now been experiencing some shortness of breath and difficulty breathing. He states the chest pain is worsened every time he coughs. The patient states that yesterday the chest pain was associated with nausea and 2 episodes of vomiting. He also endorses significant shortness of breath with physical exertion but no orthopnea, or inability to lie flat. Denies abdominal pain, RUQ pain, back pain, diarrhea or constipation. Director Quality Assurance: Dr. Cunningham Cards: Dr. García PCP: None Social Hx: Denies smoking, drinking, or illicit drug usage Allergies: NKA, NKDA Psh: Stent Past History - Past Medical History Allergies/Adverse Reactions: Allergies Allergy/AdvReac Type Severity Reaction Status Date / Time No Known Allergies Allergy Verified 03/30/19 08:48 Home Medications: Ambulatory Orders ASA - 81 mg PO DAILY 03/31/18 Lipitor 80 mg PO HS 03/31/18 Losartan Potassium 100 mg PO DAILY 03/31/18 Metoprolol Tartrate 12.5 mg PO BID 03/31/18 Omeprazole 40 mg PO DAILY 03/31/18 Anemia: No Asthma: No Cancer: No Cardiac Disorders: No CVA: No COPD: No CHF: No Dementia: No Diabetes: No Dialysis: Yes (,,sat) GI Disorders: No Disorders: Yes HTN: Yes Hypercholesterolemia: No Kidney Stones: (Renal insufficiency) Liver Disease: No Seizures: No Thyroid Disease: No - Surgical History Abdominal Surgery: No Appendectomy: No Cardiac Surgery: No Cholecystectomy: No Lung Surgery: No Neurologic Surgery: No Orthopedic Surgery: No - Psycho Social/Smoking Cessation Hx Smoking History: Never smoked Have you smoked in the past 12 months: No Hx Alcohol Use: No Drug/Substance Use Hx: No Substance Use Type: None Hx Substance Use Treatment: No Review of Systems - Review of Systems Able to Perform ROS?: Yes Comments:: CONSTITUTIONAL: Present: Fever, chills, fatigue EYES: Absent: visual changes ENT: Absent: ear pain, no sore throat CARDIOVASCULAR: Present: chest pain, palpitations RESPIRATORY: Present: cough, SOB GI: Present: nausea, vomiting Absent: abdominal pain, no constipation, no diarrhea GENITOURINARY: Absent: dysuria, no frequency, no hematuria MUSKULOSKELETAL: Absent: back pain, no arthralgia, no myalgia SKIN: Absent: rash NEURO: Absent: headache *Physical Exam - Vital Signs Last Vital Signs Temp Pulse Resp BP Pulse Ox 100 H 18 141/96 100 03/30/19 08:48 03/30/19 08:48 03/30/19 08:48 03/30/19 08:48 - Physical Exam GENERAL: Well-appearing, well-nourished. Mild distress. HEENT: Normocephalic, atraumatic. PERRL, EOM intact. CARDIOVASCULAR: Tachycardic rate. Normal S1, S2. Regular rhythm. PULMONARY: There are focal mid right sided wheezes. No crackles or rhonchi. Mild evidence of respiratory distress. ABDOMEN: Soft, non-distended, non-tender. EXTREMITIES: Normal ROM in all four extremities. RUE AV fistula SKIN: Warm, dry. No rash NEUROLOGICAL: No focal neurological deficits. Vital Signs - Vital Signs #2 Time: 10:42 Temperature: 97.7 F Temperature Source: Oral ED Treatment Course - LABORATORY CBC & Chemistry Diagram: 03/30/19 09:38 03/30/19 09:38 Medical Decision Making - Medical Decision Making Miguel Varghese is a 43 yo M w a hx of [place] s/p stent, PCKD on ESRD for the past 2 years (//Sat - AVF to [facility]), and HTN who presents to the [facility] er with two days of worsening right sided chest pain which radiates to the back and is associated with fevers, chills, and a productive cough with increased sputum production. The patient states he has also now been experiencing some shortness of breath and difficulty breathing. He states the chest pain is worsened every time he coughs. The patient states that yesterday the chest pain was associated with nausea and 2 episodes of vomiting. He also endorses significant shortness of breath with physical exertion but no orthopnea, or inability to lie flat. Vital Signs Temp Pulse Resp BP Pulse Ox 100 H 18 141/96 100 03/30/19 08:48 03/30/19 08:48 03/30/19 08:48 03/30/19 08:48 Temp: Afebrile orally - 97.7 DDx IBNLT: ACS - STEMI vs NSTEMI vs unstable Angina vs stable angina, heart failure, PNA, influenza, URI, electrolyte/metabolic disturbance, SEPSIS Plan: Labs, cultures, IV hydration, CXR, Likely Abx, probable admission to [facility] for chest pain Labs: Lactic acidosis, elevated BNP, elevated BUN/Cr consistent with ESRD, mildly elevated trop - appears to be baseline. CXR: increased retrocardiac markings, no significant congestive changes Re-assessment: Patient has a clinical PNA, is tachycardic Disposition: Admit to hospital for PNA and chest pain Discharge - Discharge Information Problems reviewed: Yes Clinical Impression/Diagnosis: Elevated brain natriuretic peptide (BNP) level PNA (pneumonia) Qualifiers: Pneumonia type: due to unspecified organism Laterality: right Lung location: middle lobe of lung Qualified Code(s): J18.9 - Pneumonia, unspecified organism Chest pain Qualifiers: Chest pain type: chest pain on breathing Qualified Code(s): R07.1 - Chest pain on breathing Condition: Stable - Admission Yes - Follow up/Referral - Patient Discharge Instructions - Post Discharge Activity
[2019-03-30] MEDS ORDERED: SODIUM CHLORIDE 0.9% 500 ML INFUS.BAG IV ONE (09:51)
[2019-03-30 10:03] LABS: BASO % 0.8 % (0-2.0); EOS % 4.1 % (0-4.5); HEMATOCRIT 36.7 % (35.4-49); LYMPH % 17.8 % (8-40); MCH 27.3 pg (25.7-33.7); MCHC 32.7 g/dl (32.0-35.9); MEAN CELL VOLUME 83.5 fl (80-96); MEAN PLT VOLUME 8.9 fl (7.5-11.1); MONO % 6.3 % (3.8-10.2); PLATELET COUNT 172 K/MM3 (134-434); RDW 17.4 % (11.9-15.9); WHITE BLOOD COUNT 5.5 K/mm3 (4.0-10.0)
[2019-03-30 10:14] LABS: INR 1.28 (0.83-1.09); PROTHROMBIN TIME (PATIENT) 15.2 SEC (9.7-13.0)
[2019-03-30 10:17] LABS: ACTIVATED PTT 40.6 SECONDS (25.2-36.5)
[2019-03-30 10:27] LABS: VENOUS PC02 41.7 mmHg (38-52)
[2019-03-30 10:32] LABS: ALBUMIN 3.8 g/dl (3.4-5.0); ALK PHOS 106 U/L (45-117); ANION GAP 10 MMOL/L (8-16); BILIRUBIN,TOTAL 0.9 mg/dL (0.2-1); BLOOD UREA NITROGEN 42.4 mg/dL (7-18); CALCIUM 9.5 mg/dL (8.5-10.1); CHLORIDE 99 mmol/L (98-107); CO2 26 mmol/L (21-32); GLUCOSE,RANDOM 86 mg/dL (74-106); MAGNESIUM 2.6 mg/dL (1.8-2.4); N-TERMINAL BNP > 175000.0 pg/ml (5-125); POTASSIUM 4.9 mmol/L (3.5-5.1); SGOT/AST 22 U/L (15-37); SGPT/ALT 44 U/L (13-61); SODIUM 135 mmol/L (136-145); TOT PROT 7.8 g/dl (6.4-8.2)
[2019-03-30 10:33] LABS: VENOUS PO2 < 49 mmHg (28-48)
[2019-03-30 10:39] LABS: CREATININE 8.7 mg/dL (0.55-1.3)
--- NOTE | 2019-03-30 11:34 | PDOC ---
Attending Attestation - Resident Resident Name: Man Vargas - ED Attending Attestation I have performed the following: I have examined & evaluated the patient, The case was reviewed & discussed with the resident, I agree w/resident's findings & plan - HPI HPI: 03/30/19 11:30 43-year-old male with history of polycystic kidney, end-stage renal disease on Saturday//Saturday dialysis, hypertension, history of AR presents with about 24 hours of symptoms that began with episode of vomiting, followed last night by chest congestion with chest pain and shortness of breath, cough productive of some yellow/green sputum, chills but no measured fever. Last dialysis as scheduled was Saturday, no other complaints. - Physicial Exam PE: 03/30/19 11:31 Afebrile, heart rate normalized on my examination Seated comfortably in chair speaking full sentences, no acute distress Heart is regular without ectopy, lungs have inspiratory wheeze at both bases, scant end expiratory wheeze in bilateral mid lung griffith but no focally decreased breath sounds. Slight crackles at both bases. Abdomen benign Right upper extremity fistula with positive thrill - Medical Decision Making 03/30/19 11:32 43-year-old male end-stage renal disease dialysis patient, hypertension history of CAD/AR presents with constellation of symptoms including chest pain and difficulty breathing since yesterday. Presentation could be consistent with viral/infectious etiology given associated chills, however given risk factors for CAD will rule out ACS. EKG sinus at 102, LVH but no acute ischemic changes Labs notable for normal CBC without leukocytosis, troponin 0.1 with baseline elevated creatinine but normal potassium, chest x-ray without acute infiltrate on my preliminary review. Admit to telemetry, patient sees Dr. Cardozo of cardiology. Arrange for dialysis with Dr. Cunningham. Heart Score/ECG Review #1 ECG reviewed & interpreted by me at: 08:44 General ECG Interpretation: Sinus Rhythm, Normal Rate (102), Normal Intervals ( qtc 492), No acute ischemic changes (nonspecific lateral T wave flattening) Compared to previous ECG there are: No significant change (c/w 02/20/18)
[2019-03-30] MEDS ORDERED: CEFTRIAXONE 1,000 MG in DEXTROSE 5%-WATER - 50 ML IVPB ONE (11:44)
[2019-03-30] MEDS ORDERED: AZITHROMYCIN 500 MG TABLET PO ONE (11:44)
[2019-03-30] MEDS ORDERED: AZITHROMYCIN 250 MG TABLET ONE (11:57)
[2019-03-30] MEDS ORDERED: CEFTRIAXONE 1 GM/50 ML BAG ONE (11:57)
[2019-03-30] MEDS ORDERED: ASPIRIN 81 MG CHEWABLE TABLETS PO ONE (12:42)
[2019-03-30] MEDS ORDERED: ASPIRIN 81 MG CHEWABLE TABLETS ONE (12:55)
--- NOTE | 2019-03-30 16:44 | HP ---
Admitting History and Physical - Primary Care Physician PCP: Kyra Gross - Admission History of Present Illness: Miguel Varghese is a 43 yo M w a hx of [place] s/p stent, PCKD on ESRD for the past 2 years (//Sat - AVF to [facility]), and HTN who presents to the [facility] er with two days of worsening right sided chest pain which radiates to the back and is associated with fevers, chills, and a productive cough with increased sputum production. The patient states he has also now been experiencing some shortness of breath and difficulty breathing. He states the chest pain is worsened every time he coughs. The patient states that yesterday the chest pain was associated with nausea and 2 episodes of vomiting. He also endorses significant shortness of breath with physical exertion but no orthopnea, or inability to lie flat. - Smoking History Smoking history: Never smoked Have you smoked in the past 12 months: No - Alcohol/Substance Use Hx Alcohol Use: No Home Medications - Allergies Allergies/Adverse Reactions: Allergies Allergy/AdvReac Type Severity Reaction Status Date / Time No Known Allergies Allergy Verified 03/30/19 08:48 - Home Medications Home Medications: Ambulatory Orders ASA - 81 mg PO DAILY 03/31/18 Lipitor 80 mg PO HS 03/31/18 Losartan Potassium 100 mg PO DAILY 03/31/18 Metoprolol Tartrate 12.5 mg PO BID 03/31/18 Omeprazole 40 mg PO DAILY 03/31/18 Physical Examination Vital Signs: Vital Signs Temperature 97.7 F 03/30/19 11:45 Pulse Rate 100 H 03/30/19 08:48 Respiratory Rate 18 03/30/19 08:48 Blood Pressure 141/96 03/30/19 08:48 O2 Sat by Pulse Oximetry (%) 100 03/30/19 13:32 Constitutional: Yes: No Distress HENT: Yes: Atraumatic Neck: Yes: Supple Cardiovascular: Yes: Regular Rate and Rhythm Respiratory: Yes: CTA Bilaterally Gastrointestinal: Yes: Normal Bowel Sounds Extremities: Yes: WNL Labs: CBC, BMP 03/30/19 09:38 03/30/19 09:38 Imaging - Results X-ray: Report Reviewed Problem List - Problems (1) Chest pain Assessment/Plan: follow up troponins cardiology consult Code(s): R07.9 - CHEST PAIN, UNSPECIFIED Qualifiers: Chest pain type: chest pain on breathing Qualified Code(s): R07.1 - Chest pain on breathing; R07.81 - Pleurodynia (2) Elevated brain natriuretic peptide (BNP) level Code(s): R79.89 - OTHER SPECIFIED ABNORMAL FINDINGS OF BLOOD CHEMISTRY (3) PNA (pneumonia) Assessment/Plan: on abx stable Code(s): J18.9 - PNEUMONIA, UNSPECIFIED ORGANISM Qualifiers: Pneumonia type: due to unspecified organism Laterality: right Lung location: middle lobe of lung Qualified Code(s): J18.9 - Pneumonia, unspecified organism (4) ESRD (end stage renal disease) Assessment/Plan: renal on board Code(s): N18.6 - END STAGE RENAL DISEASE Assessment/Plan Laboratory Tests 03/30/19 03/30/19 03/30/19 06:12 09:38 09:38 WBC RBC Hgb Hct MCV MCH MCHC RDW Plt Count MPV Absolute Neuts (auto) Neutrophils % Lymphocytes % Monocytes % Eosinophils % Basophils % Nucleated RBC % PT with INR 15.20 H INR 1.28 H PTT (Actin FS) 40.6 H VBG pH POC VBG pCO2 POC VBG pO2 VBG HCO3 VBG O2 Sat (Sandra) VBG Base Excess Sodium 135 L Potassium 4.9 Chloride 99 Carbon Dioxide 26 Anion Gap 10 BUN 42.4 H Creatinine 8.7 H* Est GFR (CKD-EPI)AfAm 7.72 Est GFR (CKD-EPI)NonAf 6.67 Random Glucose 86 Lactic Acid Calcium 9.5 Magnesium 2.6 H Total Bilirubin 0.9 AST 22 ALT 44 Alkaline Phosphatase 106 Creatine Kinase 193 Creatine Kinase Index 1.5 CK-MB (CK-2) 2.9 Troponin I 0.10 H B-Natriuretic Peptide > 307004.0 H Total Protein 7.8 Albumin 3.8 Influenza A (Rapid) Negative Influenza B (Rapid) Negative 03/30/19 03/30/19 03/30/19 09:38 10:20 10:20 WBC 5.5 RBC 4.40 Hgb 12.0 Hct 36.7 MCV 83.5 MCH 27.3 MCHC 32.7 RDW 17.4 H Plt Count 172 D MPV 8.9 D Absolute Neuts (auto) 3.9 Neutrophils % 71.0 Lymphocytes % 17.8 Monocytes % 6.3 Eosinophils % 4.1 Basophils % 0.8 Nucleated RBC % 0 PT with INR INR PTT (Actin FS) VBG pH 7.40 POC VBG pCO2 41.7 POC VBG pO2 < 49 H VBG HCO3 25.1 VBG O2 Sat (Sandra) 50.7 L VBG Base Excess 0.7 Sodium Potassium Chloride Carbon Dioxide Anion Gap BUN Creatinine Est GFR (CKD-EPI)AfAm Est GFR (CKD-EPI)NonAf Random Glucose Lactic Acid 2.4 H* Calcium Magnesium Total Bilirubin AST ALT Alkaline Phosphatase Creatine Kinase Creatine Kinase Index CK-MB (CK-2) Troponin I B-Natriuretic Peptide Total Protein Albumin Influenza A (Rapid) Influenza B (Rapid) Active Medications Generic Name Dose Route Start Last Admin Trade Name Freq PRN Reason Stop Dose Admin Acetaminophen 650 mg 03/30/19 16:47 Tylenol - PO Q6H PRN FEVER Albuterol/Ipratropium 1 amp 03/30/19 16:47 Duoneb - NEB Q4H PRN SHORTNESS OF BREATH Aspirin 81 mg 03/31/19 10:00 03/31/19 09:05 Asa - PO 81 mg DAILY ES Administration Atorvastatin Calcium 80 mg 03/30/19 22:00 03/30/19 21:54 Lipitor - PO 80 mg HS ES Administration Heparin Sodium (Porcine) 300 unit 03/31/19 15:00 03/31/19 16:02 Heparin - IVPUSH 03/31/19 18:01 300 unit Q1H ES Administration Sodium Chloride 250 mls @ 3,000 mls/hr 03/31/19 15:00 Normal Saline - IV 03/31/19 22:00 PRN PRN Hypotension during Dialysis Losartan Potassium 100 mg 03/31/19 10:00 03/31/19 09:05 Cozaar - PO 100 mg DAILY ES Administration Metoprolol Tartrate 12.5 mg 03/30/19 22:00 03/31/19 09:05 Lopressor - PO 12.5 mg BID ES Administration Pantoprazole Sodium 40 mg 03/31/19 10:00 03/31/19 09:05 Protonix - PO 40 mg DAILY ES Administration
[2019-03-30] MEDS ORDERED: ALBUTEROL SO4 2.5/IPRATROPIUM 0.5 INH SOL 3 ML VIAL.NEB. NEB PRN (16:47)
[2019-03-30] MEDS ORDERED: METOPROLOL TARTRATE 25 MG TABLET (FP) ONE (21:49)
[2019-03-30] MEDS ORDERED: ATORVASTATIN CA 80 MG TABLET (FP) ONE (21:49)
[2019-03-30] MEDS: ATORVASTATIN CA 80 MG TABLET (FP) PO SCH (21:54)
[2019-03-30] MEDS: METOPROLOL TARTRATE 25 MG TABLET (FP) PO SCH (21:54)
[2019-03-30] MEDS ORDERED: METOPROLOL TARTRATE 12.5 MG PO SCH (22:00)
[2019-03-30] MEDS ORDERED: LIPITOR 80 MG PO SCH (22:00)
[2019-03-31] MEDS ORDERED: LOSARTAN POTASSIUM 50 MG TABLET (FP) ONE (07:59)
[2019-03-31] MEDS ORDERED: PANTOPRAZOLE 40 MG TABLET ONE (07:59)
[2019-03-31] MEDS ORDERED: ASPIRIN 81 MG CHEWABLE TABLETS ONE (07:59)
[2019-03-31] MEDS ORDERED: METOPROLOL TARTRATE 25 MG TABLET (FP) ONE (08:00)
[2019-03-31] MEDS: LOSARTAN POTASSIUM 50 MG TABLET (FP) PO SCH (09:05)
[2019-03-31] MEDS: PANTOPRAZOLE 40 MG TABLET PO SCH (09:05)
[2019-03-31] MEDS: METOPROLOL TARTRATE 25 MG TABLET (FP) PO SCH ×2 (09:05→21:59)
[2019-03-31] MEDS: ASPIRIN 81 MG CHEWABLE TABLETS PO SCH (09:05)
[2019-03-31] MEDS ORDERED: PATIENT'S OWN MEDICATION (NON-FORMULARY) (Omeprazole 40 MG) PO SCH (10:00)
[2019-03-31] MEDS ORDERED: PATIENT'S OWN MEDICATION (NON-FORMULARY) (Asa - 81 MG) PO SCH (10:00)
[2019-03-31] MEDS ORDERED: PATIENT'S OWN MEDICATION (NON-FORMULARY) (Losartan Potassium 100 MG) PO SCH (10:00)
--- NOTE | 2019-03-31 12:43 | EKG ---
Test Reason : Blood Pressure : / mmHG Vent. Rate : 102 BPM Atrial Rate : 306 BPM P-R Int : 000 ms QRS Dur : 086 ms QT Int : 378 ms P-R-T Axes : 057 062 044 degrees QTc Int : 492 ms ATRIAL FLUTTER WITH 3:1 A-V CONDUCTION ABNORMAL ECG WHEN COMPARED WITH ECG OF 20-FEB-2018 15:47, ATRIAL FLUTTER HAS REPLACED SINUS RHYTHM QT HAS LENGTHENED Confirmed by MD Jean Claude, Marito ([id number]) on 03/31/2019 12:43:36 PM Referred By: Confirmed By:Marito Silverio MD
--- NOTE | 2019-03-31 13:03 | ECHO ---
Version: 1 Name: MADY NORTON Exam: Adult Echocardiogram Study Date: 03/31/2019, 10:11 AM Age: 43 Years MMode/2D Measurements & Calculations IVSd: 1.26 cm LVIDs: 3.8 cm LVIDd: 4.9 cm LVPWd: 1.15 cm ACS: 2.14 cm Ao root diam: 2.6 cm LVOT diam: 1.93 cm LA dimension: 3.9 cm Doppler Measurements & Calculations MV E max nolberto: 75.5 cm/sec Med E/e': 23.3 MV A max nolberto: 45.4 cm/sec Med Peak E' Nolberto: 3.2 cm/sec MV E/A: 1.66 Lat E/e': 9.3 Lat Peak E' Nolberto: 8.1 cm/sec MR max P.8 mmHg Ao max P.0 mmHg KEITH(I,D): 1.37 cm Ao mean P.7 mmHg LV V1 mean: 35.7 cm/sec Ao V2 max: 111.5 cm/sec LV V1 mean P.58 mmHg TR max nolberto: 357.2 cm/sec TR max P.3 mmHg Left Ventricle The left ventricle is normal in size. There is mild concentric left ventricular hypertrophy. Left ve ntricular systolic function is severely reduced. Ejection Fraction = 20%. The transmitral spectral Doppler teofilo w pattern is suggestive of impaired LV relaxation. Right Ventricle The right ventricle is normal in size and function. Atria Normal left and right atrial size and function. Mitral Valve The mitral valve is normal. There is trace to mild mitral regurgitation. Tricuspid Valve The tricuspid valve is not well visualized, but is grossly normal. There is moderate tricuspid regur gitation. Aortic Valve The aortic valve is normal in structure and function. Pulmonic Valve The pulmonic valve is not well seen, but is grossly normal. Great Vessels The aortic root is normal size. Normal aortic arch, descending and ascending aorta. Pericardium/Pleura There is no pericardial effusion. Summary Statements The left ventricle is normal in size. There is mild concentric left ventricular hypertrophy. Left ventricular systolic function is severely reduced. The transmitral spectral Doppler flow pattern is suggestive of impaired LV relaxation. Ejection Fraction = 20%. The right ventricle is normal in size and function. Normal left and right atrial size and function. The mitral valve is normal. There is trace to mild mitral regurgitation. The tricuspid valve is not well visualized, but is grossly normal. There is moderate tricuspid regurgitation. The aortic valve is normal in structure and function. The pulmonic valve is not well seen, but is grossly normal. The aortic root is normal size. Normal aortic arch, descending and ascending aorta There is no pericardial effusion. Raimundo Beardg 03/31/2019, 1:03 PM Ordering Physician: MAGDIEL BREWER Performed By: Annie Feliciano
--- NOTE | 2019-03-31 13:29 | CONSULT ---
Consult - text type - Consultation Consultation Note: Renal consult for ESRD on Hd This is a 43 year old gentleman with history of ESRD on HD (TTS), Hypertension, PCKD, Gout, CAD s/p IL and stent who presented from whole with several day history of shortness of breath with associated chest pain with radiation to left shoulder. Pt reports that the CP and SOB occurs at rest. He denies any swelling in his legs. Has sputum production. Had recently traveled to his [place] (4 hour plane ride) and symptoms only occurred after getting back. Last dialysis was Saturday w/o issues. PMhx: as above Allergies: NKDA Family Hx: NC Social Hx: no T/A/D Home Medications Medication Instructions Recorded ASA - 81 mg PO DAILY 03/31/18 Lipitor 80 mg PO HS 03/31/18 Losartan Potassium 100 mg PO DAILY 03/31/18 Metoprolol Tartrate 12.5 mg PO BID 03/31/18 Omeprazole 40 mg PO DAILY 03/31/18 Vital Signs Temperature 98.4 F 03/31/19 07:31 Pulse Rate 74 03/31/19 07:31 Respiratory Rate 19 03/31/19 07:31 Blood Pressure 110/64 03/31/19 07:31 O2 Sat by Pulse Oximetry (%) 100 03/31/19 06:41 Intake & Output 03/28/19 03/29/19 03/30/19 03/31/19 23:59 23:59 23:59 23:59 Weight 76.657 kg NAD awake and alert neck supple, no JVD RRR, no M/R CTA, no rales or wheeze soft NT/ND no LE edema, clubbing or cyanosis no calf tenderness no focal neurologic deficits CBC, BMP 03/30/19 09:38 03/30/19 09:38 Current Medications Acetaminophen (Tylenol -) 650 mg PO Q6H PRN PRN Reason: FEVER Albuterol/Ipratropium (Duoneb -) 1 amp NEB Q4H PRN PRN Reason: SHORTNESS OF BREATH Aspirin (Asa -) 81 mg PO DAILY COUNTS INCLUDE 234 BEDS AT THE [facility] Last Admin: 03/31/19 09:05 Dose: 81 mg Atorvastatin Calcium (Lipitor -) 80 mg PO HS COUNTS INCLUDE 234 BEDS AT THE [facility] Last Admin: 03/30/19 21:54 Dose: 80 mg Heparin Sodium (Porcine) (Heparin -) 300 unit IVPUSH Q1H COUNTS INCLUDE 234 BEDS AT THE [facility] Stop: 03/31/19 12:31 Sodium Chloride (Normal Saline -) 250 mls @ 3,000 mls/hr IV PRN PRN PRN Reason: Hypotension during Dialysis Stop: 04/01/19 09:25 Losartan Potassium (Cozaar -) 100 mg PO DAILY COUNTS INCLUDE 234 BEDS AT THE [facility] Last Admin: 03/31/19 09:05 Dose: 100 mg Metoprolol Tartrate (Lopressor -) 12.5 mg PO BID COUNTS INCLUDE 234 BEDS AT THE [facility] Last Admin: 03/31/19 09:05 Dose: 12.5 mg Pantoprazole Sodium (Protonix -) 40 mg PO DAILY COUNTS INCLUDE 234 BEDS AT THE [facility] Last Admin: 03/31/19 09:05 Dose: 40 mg 43 year old gentleman with history of ESRD on HD (TTS), Hypertension, PCKD, Gout, CAD s/p IL and stent who presented from whole with several day history of shortness of breath with associated chest pain with radiation to left shoulder. 1. Chest pain with shortness of breath r/o ACS vs. PE 2. ESRD no HD 3. Hypertension 3. PCKD 4. CAd s/p IL with PCI and stenting 5. Hx of Gout Given CXR is relatively and pt has SOB with chest pain and recent travel history will check CTA to r/o PE Continue Tele monitoring and trend cardiac enzymes Cardiology consulted Will arrange for dialysis today with aggressive UF as tolerated Renal diet, 1.2L fluid restriction Continue Losartan, Metoprolol, and Lipitor Continue ASA Thank you Will follow Stephan Cunningham DO
--- NOTE | 2019-03-31 13:39 | CON.CARD ---
Cardiology Consult (text) - Consultation Consultation Note: cc: short of breath hpi: 43 m hx pckd with esrd on hd, htn, CAD, NSTEMI s/p SOURAV x 2 to LCx p/w shortness of breath. Sees Dr. Cardozo for cardio, has not gone recently. Has had two days of R side chest pain, radiating to back with fever, chills, cough, dyspnea with exertion. no orthopnea, PND, edema. pmh: per hpi psh: avf social: no tob fam: mom and dad mi's in 40s ros: per hpi; no nvd fever cough ellis vision changes, hematuria dysuria gib muscle pain meds: Home Medications Medication Instructions Recorded ASA - 81 mg PO DAILY 03/31/18 Lipitor 80 mg PO HS 03/31/18 Losartan Potassium 100 mg PO DAILY 03/31/18 Metoprolol Tartrate 12.5 mg PO BID 03/31/18 Omeprazole 40 mg PO DAILY 03/31/18 pe: Vital Signs Period Temp Pulse Resp BP Sys/Hilario Pulse Ox Last 24 Hr 97.6 F-98.4 F 74-100 18-20 107-136/64-97 99-100 nad no jvd rrr s1s2 no mrg RUE fistula +thrill cta bl nl eff aaox3 no le e/c/c abd nt nd pos bs no jaundice diaphoresis pos dp pt no carotid bruits Laboratory Last Values WBC 5.5 K/mm3 (4.0-10.0) 03/30/19 09:38 RBC 4.40 M/mm3 (4.00-5.60) 03/30/19 09:38 Hgb 12.0 GM/dL (11.7-16.9) 03/30/19 09:38 Hct 36.7 % (35.4-49) 03/30/19 09:38 MCV 83.5 fl (80-96) 03/30/19 09:38 MCH 27.3 pg (25.7-33.7) 03/30/19 09:38 MCHC 32.7 g/dl (32.0-35.9) 03/30/19 09:38 RDW 17.4 % (11.9-15.9) H 03/30/19 09:38 Plt Count 172 K/MM3 (134-434) D 03/30/19 09:38 MPV 8.9 fl (7.5-11.1) D 03/30/19 09:38 Absolute Neuts (auto) 3.9 K/mm3 (1.5-8.0) 03/30/19 09:38 Neutrophils % 71.0 % (42.8-82.8) 03/30/19 09:38 Lymphocytes % 17.8 % (8-40) 03/30/19 09:38 Monocytes % 6.3 % (3.8-10.2) 03/30/19 09:38 Eosinophils % 4.1 % (0-4.5) 03/30/19 09:38 Basophils % 0.8 % (0-2.0) 03/30/19 09:38 Nucleated RBC % 0 % (0-0) 03/30/19 09:38 PT with INR 15.20 SEC (9.7-13.0) H 03/30/19 09:38 INR 1.28 (0.83-1.09) H 03/30/19 09:38 PTT (Actin FS) 40.6 SECONDS (25.2-36.5) H 03/30/19 09:38 VBG pH 7.40 (7.31-7.41) 03/30/19 10:20 POC VBG pCO2 41.7 mmHg (38-52) 03/30/19 10:20 POC VBG pO2 < 49 mmHg (28-48) H 03/30/19 10:20 VBG HCO3 25.1 mmol/L (23-29) 03/30/19 10:20 VBG O2 Sat (Sandra) 50.7 % (70-80) L 03/30/19 10:20 VBG Base Excess 0.7 meq/l (-2-2) 03/30/19 10:20 Sodium 135 mmol/L (136-145) L 03/30/19 09:38 Potassium 4.9 mmol/L (3.5-5.1) 03/30/19 09:38 Chloride 99 mmol/L (98-107) 03/30/19 09:38 Carbon Dioxide 26 mmol/L (21-32) 03/30/19 09:38 Anion Gap 10 MMOL/L (8-16) 03/30/19 09:38 BUN 42.4 mg/dL (7-18) H 03/30/19 09:38 Creatinine 8.7 mg/dL (0.55-1.3) H* 03/30/19 09:38 Est GFR (CKD-EPI)AfAm 7.72 03/30/19 09:38 Est GFR (CKD-EPI)NonAf 6.67 03/30/19 09:38 Random Glucose 86 mg/dL (74-106) 03/30/19 09:38 Lactic Acid 2.4 mmol/L (0.4-2.0) H* 03/30/19 10:20 Calcium 9.5 mg/dL (8.5-10.1) 03/30/19 09:38 Magnesium 2.6 mg/dL (1.8-2.4) H 03/30/19 09:38 Total Bilirubin 0.9 mg/dL (0.2-1) 03/30/19 09:38 AST 22 U/L (15-37) 03/30/19 09:38 ALT 44 U/L (13-61) 03/30/19 09:38 Alkaline Phosphatase 106 U/L (45-117) 03/30/19 09:38 Creatine Kinase 193 U/L (26-308) 03/30/19 09:38 Creatine Kinase Index 1.5 % (0.0-5.0) 03/30/19 09:38 CK-MB (CK-2) 2.9 ng/mL (0.5-3.6) 03/30/19 09:38 Troponin I 0.10 ng/ml (0.00-0.05) H 03/30/19 09:38 B-Natriuretic Peptide > 213935.0 pg/ml (5-125) H 03/30/19 09:38 Total Protein 7.8 g/dl (6.4-8.2) 03/30/19 09:38 Albumin 3.8 g/dl (3.4-5.0) 03/30/19 09:38 Influenza A (Rapid) Negative (Negative) 03/30/19 06:12 Influenza B (Rapid) Negative (Negative) 03/30/19 06:12 echo 10/2018 [facility] normal left ventricular size overall normal left ventricular systolic function (segmental); ejection fraction = 55 % decreased left ventricular compliance normal right ventricular size normal right ventricular function no evidence for aortic regurgitation minimal mitral regurgitation mild tricuspid regurgitation no evidence for pulmonary hypertension minimal pulmonic regurgitation moderate to severe left atrial dilatation normal right atrial size no evidence for pericardial effusion cath 10/2017 1 vessel CAD s/p SOURAV x 2 to LCx echo 03/2019 mild conc LVH, severely reduced LV function EF 20%, impaired relaxation, mild MR, mod TR ecg: sinus tach, no ischemic changes tele sinus, PVCs a/p: 43 m hx pckd with esrd on hd, htn, CAD, NSTEMI p/w short of breath, fevers , cough shortness of breath - treating for PNA given hx fevers, cough, CTA ordered to rule out PE - trop indeterminate range, flat trend, EKG no ischemic changes - unlikely ACS - echo with new cardiomyopathy, however no congestion on CXR, appears euvolemic cardiomyopathy, chronic systolic HF - reduced EF compared to prior echo from 2017 - currently appears euvolemic - volume management per renal (ESRD with HD) - cont ARB, bb CAD - NSTEMI 10/2017 s/p SOURAV x 2 to LCX - cont home aspirin, statin, bb esrd: -hd per renal htn: -cont home meds
[2019-03-31] MEDS ORDERED: SODIUM CHLORIDE 250 ML IV PRN (15:00)
[2019-03-31] MEDS: HEPARIN NA (PORCINE) 5,000 UNITS/ML 1ML VIAL IVPUSH SCH ×2 (16:02→16:51)
--- NOTE | 2019-03-31 16:50 | PN ---
Progress Note, Physician - Current Medication List Current Medications: Active Medications Acetaminophen (Tylenol -) 650 mg PO Q6H PRN PRN Reason: FEVER Albuterol/Ipratropium (Duoneb -) 1 amp NEB Q4H PRN PRN Reason: SHORTNESS OF BREATH Aspirin (Asa -) 81 mg PO DAILY [facility] Last Admin: 03/31/19 09:05 Dose: 81 mg Atorvastatin Calcium (Lipitor -) 80 mg PO HS [facility] Last Admin: 03/30/19 21:54 Dose: 80 mg Heparin Sodium (Porcine) (Heparin -) 300 unit IVPUSH Q1H [facility] Stop: 03/31/19 18:01 Last Admin: 03/31/19 16:02 Dose: 300 unit Sodium Chloride (Normal Saline -) 250 mls @ 3,000 mls/hr IV PRN PRN PRN Reason: Hypotension during Dialysis Stop: 03/31/19 22:00 Losartan Potassium (Cozaar -) 100 mg PO DAILY [facility] Last Admin: 03/31/19 09:05 Dose: 100 mg Metoprolol Tartrate (Lopressor -) 12.5 mg PO BID [facility] Last Admin: 03/31/19 09:05 Dose: 12.5 mg Pantoprazole Sodium (Protonix -) 40 mg PO DAILY [facility] Last Admin: 03/31/19 09:05 Dose: 40 mg - Objective Vital Signs: Vital Signs Temperature 97.5 F L 03/31/19 13:49 Pulse Rate 90 03/31/19 13:49 Respiratory Rate 18 03/31/19 13:49 Blood Pressure 133/94 03/31/19 13:49 O2 Sat by Pulse Oximetry (%) 100 03/31/19 13:49 Constitutional: Yes: No Distress HENT: Yes: Atraumatic Neck: Yes: Supple Cardiovascular: Yes: Regular Rate and Rhythm Respiratory: Yes: CTA Bilaterally Gastrointestinal: Yes: Normal Bowel Sounds Extremities: Yes: WNL Edema: No Neurological: Yes: Alert, Oriented Labs: CBC, BMP 03/30/19 09:38 03/30/19 09:38 INR, PTT INR 1.28 (0.83-1.09) H 03/30/19 09:38 Problem List - Problems (1) Chest pain Assessment/Plan: follow up troponins cardiology consult Code(s): R07.9 - CHEST PAIN, UNSPECIFIED Qualifiers: Chest pain type: chest pain on breathing Qualified Code(s): R07.1 - Chest pain on breathing; R07.81 - Pleurodynia (2) Elevated brain natriuretic peptide (BNP) level Code(s): R79.89 - OTHER SPECIFIED ABNORMAL FINDINGS OF BLOOD CHEMISTRY (3) PNA (pneumonia) Assessment/Plan: iv abx id consult Code(s): J18.9 - PNEUMONIA, UNSPECIFIED ORGANISM Qualifiers: Pneumonia type: due to unspecified organism Laterality: right Lung location: middle lobe of lung Qualified Code(s): J18.9 - Pneumonia, unspecified organism (4) ESRD (end stage renal disease) Assessment/Plan: renal on board Code(s): N18.6 - END STAGE RENAL DISEASE
[2019-03-31 19:00] VITALS: BMI 25.5
--- NOTE | 2019-03-31 19:21 | CON.ID ---
Consult - Alcohol/Substance Use Hx Alcohol Use: No - Smoking History Smoking history: Never smoked Have you smoked in the past 12 months: No Home Medications - Allergies Allergies/Adverse Reactions: Allergies Allergy/AdvReac Type Severity Reaction Status Date / Time No Known Allergies Allergy Verified 03/30/19 08:48 - Home Medications Home Medications: Ambulatory Orders ASA - 81 mg PO DAILY 03/31/18 Lipitor 80 mg PO HS 03/31/18 Losartan Potassium 100 mg PO DAILY 03/31/18 Metoprolol Tartrate 12.5 mg PO BID 03/31/18 Omeprazole 40 mg PO DAILY 03/31/18 Physical Exam Vital Signs: Vital Signs Temperature 98 F 03/31/19 18:49 Pulse Rate 87 03/31/19 18:49 Respiratory Rate 18 03/31/19 18:49 Blood Pressure 139/95 03/31/19 18:49 O2 Sat by Pulse Oximetry (%) 100 03/31/19 13:49 Labs: CBC, BMP 03/30/19 09:38 03/30/19 09:38
[2019-03-31] MEDS: ATORVASTATIN CA 80 MG TABLET (FP) PO SCH (21:58)
[2019-04-01] MEDS: ACETAMINOPHEN 325 MG TABLET (FP) PO PRN ×2 (02:00→22:38)
[2019-04-01] MEDS: HEPARIN NA (PORCINE) 5,000 UNITS/ML 1ML VIAL IVPUSH SCH (04:00)
[2019-04-01] MEDS: ASPIRIN 81 MG CHEWABLE TABLETS PO SCH (09:22)
[2019-04-01] MEDS: PANTOPRAZOLE 40 MG TABLET PO SCH (09:22)
[2019-04-01] MEDS: METOPROLOL TARTRATE 25 MG TABLET (FP) PO SCH ×2 (09:22→21:11)
[2019-04-01] MEDS: LOSARTAN POTASSIUM 50 MG TABLET (FP) PO SCH (09:23)
--- NOTE | 2019-04-01 11:33 | PN ---
Progress Note, Physician History of Present Illness: patient still c/o pain in the back while breathing otherwise feels better - Current Medication List Current Medications: Active Medications Acetaminophen (Tylenol -) 650 mg PO Q6H PRN PRN Reason: FEVER Last Admin: 04/01/19 02:00 Dose: 650 mg Albuterol/Ipratropium (Duoneb -) 1 amp NEB Q4H PRN PRN Reason: SHORTNESS OF BREATH Aspirin (Asa -) 81 mg PO DAILY [facility] Last Admin: 04/01/19 09:22 Dose: 81 mg Atorvastatin Calcium (Lipitor -) 80 mg PO HS [facility] Last Admin: 03/31/19 21:58 Dose: 80 mg Losartan Potassium (Cozaar -) 100 mg PO DAILY [facility] Last Admin: 04/01/19 09:23 Dose: 100 mg Metoprolol Tartrate (Lopressor -) 12.5 mg PO BID [facility] Last Admin: 04/01/19 09:22 Dose: 12.5 mg Pantoprazole Sodium (Protonix -) 40 mg PO DAILY [facility] Last Admin: 04/01/19 09:22 Dose: 40 mg - Objective Vital Signs: Vital Signs Temperature 98 F 04/01/19 09:00 Pulse Rate 92 H 04/01/19 09:00 Respiratory Rate 18 04/01/19 09:00 Blood Pressure 131/75 04/01/19 09:00 O2 Sat by Pulse Oximetry (%) 100 03/31/19 21:00 Constitutional: Yes: Calm, Mild Distress Cardiovascular: Yes: S1, S2 Respiratory: Yes: Regular, CTA Bilaterally Gastrointestinal: Yes: Normal Bowel Sounds, Soft Musculoskeletal: Yes: WNL Extremities: Yes: WNL Neurological: Yes: Alert, Oriented Psychiatric: Yes: Alert, Oriented Labs: CBC, BMP 03/30/19 09:38 03/30/19 09:38 INR, PTT INR 1.28 (0.83-1.09) H 03/30/19 09:38 Assessment/Plan 43 year old gentleman with history of ESRD on HD (TTS), Hypertension, PCKD, Gout, CAD s/p [place] and stent who presented from whole with several day history of shortness of breath with associated chest pain with radiation to left shoulder. 1. Chest pain with shortness of breath 2. ESRD 3. Hypertension 3. PCKD 4. CAd s/p [place] with PCI and stenting 5. Hx of Gout patient was dialysed yesterday now feels better continue current mgmt monitor rest as per the team cx reports noted
--- NOTE | 2019-04-01 12:02 | PN ---
Progress Note (short form) - Note Progress Note: s: sob, cp improving. no palps, dizziness, edema. Current Medications Acetaminophen (Tylenol -) 650 mg PO Q6H PRN PRN Reason: FEVER Last Admin: 04/01/19 02:00 Dose: 650 mg Albuterol/Ipratropium (Duoneb -) 1 amp NEB Q4H PRN PRN Reason: SHORTNESS OF BREATH Aspirin (Asa -) 81 mg PO DAILY [facility] Last Admin: 04/01/19 09:22 Dose: 81 mg Atorvastatin Calcium (Lipitor -) 80 mg PO HS [facility] Last Admin: 03/31/19 21:58 Dose: 80 mg Losartan Potassium (Cozaar -) 100 mg PO DAILY [facility] Last Admin: 04/01/19 09:23 Dose: 100 mg Metoprolol Tartrate (Lopressor -) 12.5 mg PO BID [facility] Last Admin: 04/01/19 09:22 Dose: 12.5 mg Pantoprazole Sodium (Protonix -) 40 mg PO DAILY [facility] Last Admin: 04/01/19 09:22 Dose: 40 mg Vital Signs Period Temp Pulse Resp BP Sys/Hilario Pulse Ox Last 24 Hr 97.4 F-98.7 F 80-96 18-20 120-139/75-100 100-100 nad no jvd rrr s1s2 no mrg RUE fistula +thrill cta bl nl eff aaox3 no le e/c/c abd nt nd pos bs no jaundice diaphoresis pos dp pt no carotid bruits echo 10/2018 [facility] normal left ventricular size overall normal left ventricular systolic function (segmental); ejection fraction = 55 % decreased left ventricular compliance normal right ventricular size normal right ventricular function no evidence for aortic regurgitation minimal mitral regurgitation mild tricuspid regurgitation no evidence for pulmonary hypertension minimal pulmonic regurgitation moderate to severe left atrial dilatation normal right atrial size no evidence for pericardial effusion cath 10/2017 1 vessel CAD s/p SOURAV x 2 to LCx echo 03/2019 mild conc LVH, severely reduced LV function EF 20%, impaired relaxation, mild MR, mod TR CTA chest no PE, atherosclerotic coronary calcifications ecg: sinus tach, no ischemic changes tele sinus, PVCs a/p: 43 m hx pckd with esrd on hd, htn, CAD, NSTEMI p/w short of breath, fevers , cough shortness of breath, chest pain - CTA chest no PE, less likely PNA - trop indeterminate range, fEKG no ischemic changes - unlikely ACS - echo with new cardiomyopathy, however no congestion on CXR, appears euvolemic with BNP >[id number] (pt with ESRD) - feels better after HD - ischemic workup when stable cardiomyopathy, chronic systolic HF - reduced EF compared to prior echo from 2018 - per pt had office echo within the last few months that was normal, will review outpatient records - volume management per renal (ESRD with HD) - cont ARB, bb - ischemic workup when stable as above CAD - NSTEMI 10/2017 s/p SOURAV x 2 to LCX - cont home aspirin, statin, bb esrd: -hd per renal htn: -cont home meds
[2019-04-01 12:43] LABS: BLOOD UREA NITROGEN 37.9 mg/dL (7-18); CALCIUM 8.7 mg/dL (8.5-10.1)
[2019-04-01 13:04] LABS: CREATININE 7.8 mg/dL (0.55-1.3)
[2019-04-01] MEDS ORDERED: SODIUM CHLORIDE 250 ML IV PRN (15:11)
--- NOTE | 2019-04-01 15:11 | PN ---
Progress Note (short form) - Note Progress Note: Renal follow up for ESRD on HD Seen and examined at the bedside awake and alert still has mild APPLE, no chest pain no SOB at rest s/p HD yesterday Vital Signs Temperature 97.6 F 04/01/19 13:58 Pulse Rate 102 H 04/01/19 13:58 Respiratory Rate 04/01/19 13:58 Blood Pressure 125/91 04/01/19 13:58 O2 Sat by Pulse Oximetry (%) 100 03/31/19 21:00 Intake & Output 03/29/19 03/30/19 03/31/19 04/01/19 23:59 23:59 23:59 23:59 Intake Total 600 Output Total 3000 Balance -2400 Weight 76.657 kg 67.767 kg NAD RRR, no M/R CTA, no rales or wheeze soft NT/ND no LE edema, clubbing or cyanosis CBC, BMP 03/30/19 09:38 04/01/19 11:35 Current Medications Acetaminophen (Tylenol -) 650 mg PO Q6H PRN PRN Reason: FEVER Last Admin: 04/01/19 02:00 Dose: 650 mg Albuterol/Ipratropium (Duoneb -) 1 amp NEB Q4H PRN PRN Reason: SHORTNESS OF BREATH Aspirin (Asa -) 81 mg PO DAILY [facility] Last Admin: 04/01/19 09:22 Dose: 81 mg Atorvastatin Calcium (Lipitor -) 80 mg PO HS [facility] Last Admin: 03/31/19 21:58 Dose: 80 mg Losartan Potassium (Cozaar -) 100 mg PO DAILY [facility] Last Admin: 04/01/19 09:23 Dose: 100 mg Metoprolol Tartrate (Lopressor -) 12.5 mg PO BID [facility] Last Admin: 04/01/19 09:22 Dose: 12.5 mg Pantoprazole Sodium (Protonix -) 40 mg PO DAILY [facility] Last Admin: 04/01/19 09:22 Dose: 40 mg 43 year old gentleman with history of ESRD on HD (TTS), Hypertension, PCKD, Gout, CAD s/p [place] and stent who presented from whole with several day history of shortness of breath with associated chest pain with radiation to left shoulder. 1. Chest pain with shortness of breath r/o ACS vs. PE 2. ESRD no HD 3. Hypertension 3. PCKD 4. CAd s/p [place] with PCI and stenting 5. Hx of Gout CTA of the chest negative for PE ECHO shows significant change in LV function, etiology unclear. Will need work up for ischemia as per Cardiology. No acue indication for dialysis today. Next planned dialysis is tomorrow. Renal diet, 1.2L fluid restriction. Continue Losartan, Metoprolol, and Lipitor Continue ANSON Cunningham DO
[2019-04-01] MEDS ORDERED: diphenhydrAMINE HCL 25 MG CAPSULE (FP) PO PRN (18:07)
--- NOTE | 2019-04-01 18:14 | PN ---
Progress Note, Physician - Current Medication List Current Medications: Active Medications Acetaminophen (Tylenol -) 650 mg PO Q6H PRN PRN Reason: FEVER Last Admin: 04/01/19 02:00 Dose: 650 mg Albuterol/Ipratropium (Duoneb -) 1 amp NEB Q4H PRN PRN Reason: SHORTNESS OF BREATH Aspirin (Asa -) 81 mg PO DAILY [facility] Last Admin: 04/01/19 09:22 Dose: 81 mg Atorvastatin Calcium (Lipitor -) 80 mg PO HS [facility] Last Admin: 03/31/19 21:58 Dose: 80 mg Diphenhydramine HCl (Benadryl -) 25 mg PO Q6H PRN PRN Reason: FOR ITCHING Heparin Sodium (Porcine) (Heparin -) 500 unit IVPUSH Q1H [facility] Stop: 04/02/19 09:01 Sodium Chloride (Normal Saline -) 250 mls @ 3,000 mls/hr IV PRN PRN PRN Reason: Hypotension during Dialysis Stop: 04/02/19 15:11 Losartan Potassium (Cozaar -) 100 mg PO DAILY [facility] [place] Last Admin: 04/01/19 09:23 Dose: 100 mg Metoprolol Tartrate (Lopressor -) 12.5 mg PO BID [facility] [place] Last Admin: 04/01/19 09:22 Dose: 12.5 mg Pantoprazole Sodium (Protonix -) 40 mg PO DAILY [facility] Last Admin: 04/01/19 09:22 Dose: 40 mg - Objective Vital Signs: Vital Signs Temperature 97.6 F 04/01/19 13:58 Pulse Rate 102 H 04/01/19 13:58 Respiratory Rate 20 04/01/19 13:58 Blood Pressure 125/91 04/01/19 13:58 O2 Sat by Pulse Oximetry (%) 100 03/31/19 21:00 Constitutional: Yes: No Distress HENT: Yes: Atraumatic Neck: Yes: Supple Cardiovascular: Yes: Regular Rate and Rhythm Respiratory: Yes: CTA Bilaterally Gastrointestinal: Yes: Normal Bowel Sounds Extremities: Yes: WNL Edema: No Neurological: Yes: Alert, Oriented Labs: CBC, BMP 03/30/19 09:38 04/01/19 11:35 INR, PTT INR 1.28 (0.83-1.09) H 03/30/19 09:38 Problem List - Problems (1) Chest pain Assessment/Plan: doing well Code(s): R07.9 - CHEST PAIN, UNSPECIFIED Qualifiers: Chest pain type: chest pain on breathing Qualified Code(s): R07.1 - Chest pain on breathing; R07.81 - Pleurodynia (2) Elevated brain natriuretic peptide (BNP) level Code(s): R79.89 - OTHER SPECIFIED ABNORMAL FINDINGS OF BLOOD CHEMISTRY (3) PNA (pneumonia) Assessment/Plan: iv abx id consult not on abx Code(s): J18.9 - PNEUMONIA, UNSPECIFIED ORGANISM Qualifiers: Pneumonia type: due to unspecified organism Laterality: right Lung location: middle lobe of lung Qualified Code(s): J18.9 - Pneumonia, unspecified organism (4) ESRD (end stage renal disease) Assessment/Plan: renal on board Code(s): N18.6 - END STAGE RENAL DISEASE
[2019-04-01] MEDS ORDERED: diphenhydrAMINE HCL 25 MG CAPSULE (FP) PO ONE (18:30)
[2019-04-01] MEDS: ATORVASTATIN CA 80 MG TABLET (FP) PO SCH (21:12)
[2019-04-02] MEDS: HEPARIN NA (PORCINE) 5,000 UNITS/ML 1ML VIAL IVPUSH SCH ×3 (11:00→14:48)
--- NOTE | 2019-04-02 11:15 | PN ---
Progress Note (short form) - Note Progress Note: s: no palps, dizziness, edema, sob cp Current Medications Generic Name Dose Route Start Last Admin Trade Name Freq PRN Reason Stop Dose Admin Acetaminophen 650 mg 03/30/19 16:47 04/01/19 22:38 Tylenol - PO 650 mg Q6H PRN Administration FEVER Albuterol/Ipratropium 1 amp 03/30/19 16:47 Duoneb - NEB Q4H PRN SHORTNESS OF BREATH Aspirin 81 mg 03/31/19 10:00 04/01/19 09:22 Asa - PO 81 mg DAILY [facility] Administration Atorvastatin Calcium 80 mg 03/30/19 22:00 04/01/19 21:12 Lipitor - PO 80 mg HS [facility] Administration Diphenhydramine HCl 25 mg 04/01/19 18:07 Benadryl - PO Q6H PRN FOR ITCHING Heparin Sodium (Porcine) 500 unit 04/02/19 06:00 Heparin - IVPUSH 04/02/19 09:01 Q1H ES Sodium Chloride 250 mls @ 3,000 mls/hr 04/01/19 15:11 Normal Saline - IV 04/02/19 15:11 PRN PRN Hypotension during Dialysis Losartan Potassium 100 mg 03/31/19 10:00 04/01/19 09:23 Cozaar - PO 100 mg DAILY [facility] Administration Metoprolol Tartrate 12.5 mg 03/30/19 22:00 04/01/19 21:11 Lopressor - PO 12.5 mg BID [facility] Administration Pantoprazole Sodium 40 mg 03/31/19 10:00 04/01/19 09:22 Protonix - PO 40 mg DAILY [facility] Administration Vital Signs Period Temp Pulse Resp BP Sys/Hilario Pulse Ox Last 24 Hr 97.5 F-97.7 F 88-102 20-20 115-125/79-91 97-99 nad no jvd rrr s1s2 no mrg cta bl nl eff aaox3 no le e/c/c abd nt nd pos bs no jaundice diaphoresis pos dp pt no carotid bruits CBC, BMP 03/30/19 09:38 04/01/19 11:35 echo 10/2018 [facility] [place] normal left ventricular size overall normal left ventricular systolic function (segmental); ejection fraction = 55 % decreased left ventricular compliance normal right ventricular size normal right ventricular function no evidence for aortic regurgitation minimal mitral regurgitation mild tricuspid regurgitation no evidence for pulmonary hypertension minimal pulmonic regurgitation moderate to severe left atrial dilatation normal right atrial size no evidence for pericardial effusion cath 10/2017 1 vessel CAD s/p SOURAV x 2 to LCx echo 03/2019 mild conc LVH, severely reduced LV function EF 20%, impaired relaxation, mild MR, mod TR CTA chest no PE, atherosclerotic coronary calcifications ecg: sinus tach, no ischemic changes tele sinus, breif nsvt a/p: 43 m hx pckd with esrd on hd, htn, CAD, NSTEMI p/w short of breath, fevers , cough shortness of breath, chest pain - CTA chest no PE, less likely PNA - trop indeterminate range, EKG no ischemic changes - unlikely ACS - echo with new cardiomyopathy, however no congestion on CXR, appears euvolemic - feels better after HD - will send for nuclear stress test tomorrow given newly reduced lvef cardiomyopathy, chronic systolic HF - reduced EF compared to prior echo from 2018 - volume management per renal (ESRD with HD) - cont ARB, bb - ischemic workup as above CAD - NSTEMI 10/2017 s/p SOURAV x 2 to LCX - cont home aspirin, statin, bb esrd: -hd per renal htn: -cont home meds
[2019-04-02 12:55] LABS: BLOOD UREA NITROGEN 58.2 mg/dL (7-18); CALCIUM 8.7 mg/dL (8.5-10.1); POTASSIUM 4.5 mmol/L (3.5-5.1)
[2019-04-02 12:58] LABS: CREATININE 9.5 mg/dL (0.55-1.3)
--- NOTE | 2019-04-02 13:35 | PN ---
Progress Note (short form) - Note Progress Note: Renal follow up for ESRD on HD Seen and examined during dialyis BP stable, goal UF 2.5L pt offers no acute complaints denies any chest pain or shortness of breath Vital Signs Temperature 97.6 F 04/02/19 06:00 Pulse Rate 84 04/02/19 12:00 Respiratory Rate 18 04/02/19 12:00 Blood Pressure 146/85 04/02/19 12:00 O2 Sat by Pulse Oximetry (%) 97 04/02/19 09:00 Intake & Output 03/30/19 03/31/19 04/01/19 04/02/19 23:59 23:59 23:59 23:59 Intake Total 600 310 760 Output Total 3000 Balance -2400 310 760 Weight 76.657 kg 67.767 kg NAD RRR, no M/R CTA, no rales or wheeze soft NT/ND no LE edema, clubbing or cyanosis CBC, BMP 03/30/19 09:38 04/02/19 11:15 Current Medications Acetaminophen (Tylenol -) 650 mg PO Q6H PRN PRN Reason: FEVER Last Admin: 04/01/19 22:38 Dose: 650 mg Albuterol/Ipratropium (Duoneb -) 1 amp NEB Q4H PRN PRN Reason: SHORTNESS OF BREATH Aspirin (Asa -) 81 mg PO DAILY [facility] Last Admin: 04/01/19 09:22 Dose: 81 mg Atorvastatin Calcium (Lipitor -) 80 mg PO HS [facility] Last Admin: 04/01/19 21:12 Dose: 80 mg Diphenhydramine HCl (Benadryl -) 25 mg PO Q6H PRN PRN Reason: FOR ITCHING Heparin Sodium (Porcine) (Heparin -) 500 unit IVPUSH Q1H [facility] Stop: 04/02/19 09:01 Sodium Chloride (Normal Saline -) 250 mls @ 3,000 mls/hr IV PRN PRN PRN Reason: Hypotension during Dialysis Stop: 04/02/19 15:11 Losartan Potassium (Cozaar -) 100 mg PO DAILY [facility] Last Admin: 04/01/19 09:23 Dose: 100 mg Metoprolol Tartrate (Lopressor -) 12.5 mg PO BID [facility] Last Admin: 04/01/19 21:11 Dose: 12.5 mg Pantoprazole Sodium (Protonix -) 40 mg PO DAILY [facility] Last Admin: 04/01/19 09:22 Dose: 40 mg 43 year old gentleman with history of ESRD on HD (TTS), Hypertension, PCKD, Gout, CAD s/p [place] and stent who presented from whole with several day history of shortness of breath with associated chest pain with radiation to left shoulder. 1. Chest pain with shortness of breath r/o ACS vs. PE 2. ESRD no HD 3. Hypertension 3. PCKD 4. CAd s/p [place] with PCI and stenting 5. Hx of Gout ECHO shows significant change in LV function, etiology unclear. Will need work up for ischemia as per Cardiology. For [place] stress test tomorrow Tolerating dialysis well today. Renal diet, 1.2L fluid restriction. Continue Losartan, Metoprolol, and Lipitor Continue ANSON Cunningham DO
--- NOTE | 2019-04-02 14:14 | PN ---
Progress Note, Physician History of Present Illness: stable doing well - Current Medication List Current Medications: Active Medications Acetaminophen (Tylenol -) 650 mg PO Q6H PRN PRN Reason: FEVER Last Admin: 04/01/19 22:38 Dose: 650 mg Albuterol/Ipratropium (Duoneb -) 1 amp NEB Q4H PRN PRN Reason: SHORTNESS OF BREATH Aspirin (Asa -) 81 mg PO DAILY [facility] Last Admin: 04/01/19 09:22 Dose: 81 mg Atorvastatin Calcium (Lipitor -) 80 mg PO HS [facility] Last Admin: 04/01/19 21:12 Dose: 80 mg Diphenhydramine HCl (Benadryl -) 25 mg PO Q6H PRN PRN Reason: FOR ITCHING Heparin Sodium (Porcine) (Heparin -) 500 unit IVPUSH Q1H [facility] Stop: 04/02/19 09:01 Sodium Chloride (Normal Saline -) 250 mls @ 3,000 mls/hr IV PRN PRN PRN Reason: Hypotension during Dialysis Stop: 04/02/19 15:11 Losartan Potassium (Cozaar -) 100 mg PO DAILY [facility] Last Admin: 04/01/19 09:23 Dose: 100 mg Metoprolol Tartrate (Lopressor -) 12.5 mg PO BID [facility] Last Admin: 04/01/19 21:11 Dose: 12.5 mg Pantoprazole Sodium (Protonix -) 40 mg PO DAILY [facility] Last Admin: 04/01/19 09:22 Dose: 40 mg - Objective Vital Signs: Vital Signs Temperature 97.6 F 04/02/19 06:00 Pulse Rate 78 04/02/19 13:30 Respiratory Rate 18 04/02/19 13:30 Blood Pressure 140/84 04/02/19 13:30 O2 Sat by Pulse Oximetry (%) 97 04/02/19 09:00 Constitutional: Yes: No Distress, Calm Cardiovascular: Yes: S1, S2 Respiratory: Yes: Regular, CTA Bilaterally Gastrointestinal: Yes: Normal Bowel Sounds, Soft Musculoskeletal: Yes: WNL Extremities: Yes: Other Neurological: Yes: Alert, Oriented Psychiatric: Yes: Alert, Oriented Labs: CBC, BMP 03/30/19 09:38 04/02/19 11:15 INR, PTT INR 1.28 (0.83-1.09) H 03/30/19 09:38 Assessment/Plan 43 year old gentleman with history of ESRD on HD (TTS), Hypertension, PCKD, Gout, CAD s/p RI and stent who presented from whole with several day history of shortness of breath with associated chest pain with radiation to left shoulder. 1. Chest pain with shortness of breath 2. ESRD 3. Hypertension 3. PCKD 4. CAd s/p RI with PCI and stenting 5. Hx of Gout now feels better continue current mgmt monitor rest as per the team cx reports noted
[2019-04-02] MEDS: METOPROLOL TARTRATE 25 MG TABLET (FP) PO SCH ×2 (16:17→21:50)
[2019-04-02] MEDS: ASPIRIN 81 MG CHEWABLE TABLETS PO SCH (16:17)
[2019-04-02] MEDS: PANTOPRAZOLE 40 MG TABLET PO SCH (16:17)
[2019-04-02] MEDS: LOSARTAN POTASSIUM 50 MG TABLET (FP) PO SCH (16:17)
--- NOTE | 2019-04-02 18:44 | PN ---
Progress Note, Physician - Current Medication List Current Medications: Active Medications Acetaminophen (Tylenol -) 650 mg PO Q6H PRN PRN Reason: FEVER Last Admin: 04/01/19 22:38 Dose: 650 mg Albuterol/Ipratropium (Duoneb -) 1 amp NEB Q4H PRN PRN Reason: SHORTNESS OF BREATH Aspirin (Asa -) 81 mg PO DAILY [facility] Last Admin: 04/02/19 16:17 Dose: 81 mg Atorvastatin Calcium (Lipitor -) 80 mg PO HS [facility] Last Admin: 04/01/19 21:12 Dose: 80 mg Diphenhydramine HCl (Benadryl -) 25 mg PO Q6H PRN PRN Reason: FOR ITCHING Losartan Potassium (Cozaar -) 100 mg PO DAILY [facility] Last Admin: 04/02/19 16:17 Dose: 100 mg Metoprolol Tartrate (Lopressor -) 12.5 mg PO BID [facility] Last Admin: 04/02/19 16:17 Dose: 12.5 mg Pantoprazole Sodium (Protonix -) 40 mg PO DAILY [facility] Last Admin: 04/02/19 16:17 Dose: 40 mg - Objective Vital Signs: Vital Signs Temperature 97.2 F L 04/02/19 10:00 Pulse Rate 91 H 04/02/19 15:10 Respiratory Rate 18 04/02/19 15:10 Blood Pressure 145/80 04/02/19 15:10 O2 Sat by Pulse Oximetry (%) 96 04/02/19 09:00 Constitutional: Yes: No Distress HENT: Yes: Atraumatic Neck: Yes: Supple Cardiovascular: Yes: Regular Rate and Rhythm Respiratory: Yes: CTA Bilaterally Gastrointestinal: Yes: Normal Bowel Sounds Extremities: Yes: WNL Edema: No Neurological: Yes: Alert, Oriented Labs: CBC, BMP 03/30/19 09:38 04/02/19 11:15 INR, PTT INR 1.28 (0.83-1.09) H 03/30/19 09:38 Problem List - Problems (1) Chest pain Assessment/Plan: follow up troponins cardiology consult Code(s): R07.9 - CHEST PAIN, UNSPECIFIED Qualifiers: Chest pain type: chest pain on breathing Qualified Code(s): R07.1 - Chest pain on breathing; R07.81 - Pleurodynia (2) Elevated brain natriuretic peptide (BNP) level Code(s): R79.89 - OTHER SPECIFIED ABNORMAL FINDINGS OF BLOOD CHEMISTRY (3) PNA (pneumonia) Assessment/Plan: not on abx stable Code(s): J18.9 - PNEUMONIA, UNSPECIFIED ORGANISM Qualifiers: Pneumonia type: due to unspecified organism Laterality: right Lung location: middle lobe of lung Qualified Code(s): J18.9 - Pneumonia, unspecified organism (4) ESRD (end stage renal disease) Assessment/Plan: renal on board Code(s): N18.6 - END STAGE RENAL DISEASE Assessment/Plan for stress test in am
[2019-04-02] MEDS: ATORVASTATIN CA 80 MG TABLET (FP) PO SCH (21:48)
[2019-04-03] MEDS ORDERED: REGADENOSON 0.4 MG/5 ML PRE-FILLED SYRINGE IVPUSH ONE ×2 (09:30→10:21)
--- NOTE | 2019-04-03 12:15 | PN ---
Progress Note, Physician - Current Medication List Current Medications: Active Medications Acetaminophen (Tylenol -) 650 mg PO Q6H PRN PRN Reason: FEVER Last Admin: 04/01/19 22:38 Dose: 650 mg Albuterol/Ipratropium (Duoneb -) 1 amp NEB Q4H PRN PRN Reason: SHORTNESS OF BREATH Aspirin (Asa -) 81 mg PO DAILY [facility] Last Admin: 04/02/19 16:17 Dose: 81 mg Atorvastatin Calcium (Lipitor -) 80 mg PO HS [facility] Last Admin: 04/02/19 21:48 Dose: 80 mg Diphenhydramine HCl (Benadryl -) 25 mg PO Q6H PRN PRN Reason: FOR ITCHING Losartan Potassium (Cozaar -) 100 mg PO DAILY [facility] Last Admin: 04/02/19 16:17 Dose: 100 mg Metoprolol Tartrate (Lopressor -) 12.5 mg PO BID [facility] Last Admin: 04/02/19 21:50 Dose: 12.5 mg Pantoprazole Sodium (Protonix -) 40 mg PO DAILY [facility] Last Admin: 04/02/19 16:17 Dose: 40 mg - Objective Vital Signs: Vital Signs Temperature 98.4 F 04/03/19 09:35 Pulse Rate 89 04/03/19 09:35 Respiratory Rate 20 04/03/19 09:35 Blood Pressure 129/92 04/03/19 09:35 O2 Sat by Pulse Oximetry (%) 96 04/03/19 09:00 Constitutional: Yes: No Distress HENT: Yes: Atraumatic Neck: Yes: Supple Cardiovascular: Yes: Regular Rate and Rhythm Respiratory: Yes: CTA Bilaterally Gastrointestinal: Yes: Normal Bowel Sounds Extremities: Yes: WNL Edema: No Neurological: Yes: Alert, Oriented Labs: CBC, BMP 03/30/19 09:38 04/02/19 11:15 INR, PTT INR 1.28 (0.83-1.09) H 03/30/19 09:38 Problem List - Problems (1) Chest pain Assessment/Plan: stress test today continue current meds Code(s): R07.9 - CHEST PAIN, UNSPECIFIED Qualifiers: Chest pain type: chest pain on breathing Qualified Code(s): R07.1 - Chest pain on breathing; R07.81 - Pleurodynia (2) Elevated brain natriuretic peptide (BNP) level Code(s): R79.89 - OTHER SPECIFIED ABNORMAL FINDINGS OF BLOOD CHEMISTRY (3) PNA (pneumonia) Assessment/Plan: not on abx stable Code(s): J18.9 - PNEUMONIA, UNSPECIFIED ORGANISM Qualifiers: Pneumonia type: due to unspecified organism Laterality: right Lung location: middle lobe of lung Qualified Code(s): J18.9 - Pneumonia, unspecified organism (4) ESRD (end stage renal disease) Assessment/Plan: renal on board on HD Code(s): N18.6 - END STAGE RENAL DISEASE
--- NOTE | 2019-04-03 12:16 | DS ---
Physical Examination Vital Signs: Vital Signs Temperature 98.4 F 04/03/19 09:35 Pulse Rate 89 04/03/19 09:35 Respiratory Rate 20 04/03/19 09:35 Blood Pressure 129/92 04/03/19 09:35 O2 Sat by Pulse Oximetry (%) 96 04/03/19 09:00 Labs: CBC, BMP 03/30/19 09:38 04/02/19 11:15 Discharge Summary Problems reviewed: Yes Reason For Visit: ELEVATED BRAIN NATRIURETIC PEPTIDE Current Active Problems Chest pain (Acute) Elevated brain natriuretic peptide (BNP) level (Acute) PNA (pneumonia) (Acute) Condition: Stable - Instructions - Home Medications Comprehensive Discharge Medication List: Ambulatory Orders ASA - 81 mg PO DAILY 03/31/18 Lipitor 80 mg PO HS 03/31/18 Losartan Potassium 100 mg PO DAILY 03/31/18 Metoprolol Tartrate 12.5 mg PO BID 03/31/18 Omeprazole 40 mg PO DAILY 03/31/18
--- NOTE | 2019-04-03 14:24 | PN ---
Progress Note (short form) - Note Progress Note: Renal follow up for ESRD on HD Seen and examined at the bedside offers no acute complaints s/p stress test this morning no sob, chest pain, fever, chills Vital Signs Temperature 98.4 F 04/03/19 09:35 Pulse Rate 101 H 04/03/19 14:15 Respiratory Rate 04/03/19 14:15 Blood Pressure 129/97 04/03/19 14:15 O2 Sat by Pulse Oximetry (%) 96 04/03/19 09:00 Intake & Output 03/31/19 04/01/19 04/02/19 04/03/19 23:59 23:59 23:59 23:59 Intake Total 600 310 910 Output Total 3000 2500 Balance -2400 310 -1590 Weight 67.767 kg NAD RRR, no M/R CTA, no rales or wheeze soft NT/ND no LE edema, clubbing or cyanosis CBC, BMP 03/30/19 09:38 04/02/19 11:15 Current Medications Acetaminophen (Tylenol -) 650 mg PO Q6H PRN PRN Reason: FEVER Last Admin: 04/01/19 22:38 Dose: 650 mg Albuterol/Ipratropium (Duoneb -) 1 amp NEB Q4H PRN PRN Reason: SHORTNESS OF BREATH Aspirin (Asa -) 81 mg PO DAILY [facility] Last Admin: 04/02/19 16:17 Dose: 81 mg Atorvastatin Calcium (Lipitor -) 80 mg PO HS [facility] Last Admin: 04/02/19 21:48 Dose: 80 mg Diphenhydramine HCl (Benadryl -) 25 mg PO Q6H PRN PRN Reason: FOR ITCHING Losartan Potassium (Cozaar -) 100 mg PO DAILY [facility] Last Admin: 04/02/19 16:17 Dose: 100 mg Metoprolol Tartrate (Lopressor -) 12.5 mg PO BID [facility] Last Admin: 04/02/19 21:50 Dose: 12.5 mg Pantoprazole Sodium (Protonix -) 40 mg PO DAILY [facility] Last Admin: 04/02/19 16:17 Dose: 40 mg 43 year old gentleman with history of ESRD on HD (TTS), Hypertension, PCKD, Gout, CAD s/p NE and stent who presented from whole with several day history of shortness of breath with associated chest pain with radiation to left shoulder. 1. Chest pain with shortness of breath r/o ACS vs. PE 2. ESRD no HD 3. Hypertension 3. PCKD 4. CAd s/p NE with PCI and stenting 5. Hx of Gout f/u stress test results ECHO shows significant change in LV function, etiology unclear. Will need work up for ischemia as per Cardiology. Cardiology follow up Renal diet, 1.2L fluid restriction. Continue Losartan, Metoprolol, and Lipitor Continue ASA If stress test negative and cleared by Cardiology can be discharged and resume dialysis tomorrow as an outpatient. Stephan Cunningham DO
--- NOTE | 2019-04-03 14:26 | PN ---
Progress Note, Physician Chief Complaint: Denies CP Denies SOB Had nuclear stress - Current Medication List Current Medications: Active Medications Acetaminophen (Tylenol -) 650 mg PO Q6H PRN PRN Reason: FEVER Last Admin: 04/01/19 22:38 Dose: 650 mg Albuterol/Ipratropium (Duoneb -) 1 amp NEB Q4H PRN PRN Reason: SHORTNESS OF BREATH Aspirin (Asa -) 81 mg PO DAILY [facility] Last Admin: 04/02/19 16:17 Dose: 81 mg Atorvastatin Calcium (Lipitor -) 80 mg PO HS [facility] Last Admin: 04/02/19 21:48 Dose: 80 mg Diphenhydramine HCl (Benadryl -) 25 mg PO Q6H PRN PRN Reason: FOR ITCHING Losartan Potassium (Cozaar -) 100 mg PO DAILY [facility] Last Admin: 04/02/19 16:17 Dose: 100 mg Metoprolol Tartrate (Lopressor -) 12.5 mg PO BID [facility] Last Admin: 04/02/19 21:50 Dose: 12.5 mg Pantoprazole Sodium (Protonix -) 40 mg PO DAILY [facility] Last Admin: 04/02/19 16:17 Dose: 40 mg - Objective Vital Signs: Vital Signs Temperature 98.4 F 04/03/19 09:35 Pulse Rate 101 H 04/03/19 14:15 Respiratory Rate 04/03/19 14:15 Blood Pressure 129/97 04/03/19 14:15 O2 Sat by Pulse Oximetry (%) 96 04/03/19 09:00 Constitutional: Yes: No Distress Cardiovascular: Yes: Regular Rate and Rhythm Respiratory: Yes: CTA Bilaterally Gastrointestinal: Yes: Soft Edema: No Neurological: Yes: Alert, Oriented Labs: CBC, BMP 03/30/19 09:38 04/02/19 11:15 INR, PTT INR 1.28 (0.83-1.09) H 03/30/19 09:38 Microbiology 03/30/19 10:20 Blood - Peripheral Venous Blood Culture - Preliminary NO GROWTH OBTAINED AFTER 96 HOURS, INCUBATION TO CONTINUE FOR 1 DAYS. 03/30/19 10:20 Blood - Peripheral Venous Blood Culture - Preliminary NO GROWTH OBTAINED AFTER 96 HOURS, INCUBATION TO CONTINUE FOR 1 DAYS. Laboratory Tests 03/30/19 04/02/19 04/03/19 09:38 11:15 05:43 WBC 5.5 Hgb 12.0 Plt Count 172 D Sodium 136 Potassium 4.5 Creatinine 9.5 H* Creatine Kinase 87 Troponin I 0.07 H 0.08 H - ....Imaging Other: Other (Nuclear stress with mild anteroapical ischemia, Mild to moderate inferior ischemia. EF < 30%) Assessment/Plan echo 10/2018 [facility] normal left ventricular size overall normal left ventricular systolic function (segmental); ejection fraction = 55 % decreased left ventricular compliance normal right ventricular size normal right ventricular function no evidence for aortic regurgitation minimal mitral regurgitation mild tricuspid regurgitation no evidence for pulmonary hypertension minimal pulmonic regurgitation moderate to severe left atrial dilatation normal right atrial size no evidence for pericardial effusion cath 10/2017 1 vessel CAD s/p SOURAV x 2 to LCx echo 03/2019 mild conc LVH, severely reduced LV function EF 20%, impaired relaxation, mild MR, mod TR CTA chest no PE, atherosclerotic coronary calcifications ecg: sinus tach, no ischemic changes tele sinus, breif nsvt a/p: 43 m hx pckd with esrd on hd, htn, CAD, NSTEMI p/w short of breath, fevers , cough. shortness of breath, chest pain: - CTA chest no PE, less likely PNA - trop indeterminate range, EKG no ischemic changes - unlikely ACS - echo with new cardiomyopathy, however no congestion on CXR, appears euvolemic - feels better after HD - Lexiscan MPI today with anterior and inferior ischemia and severely reduced EF -Will recommend LHC to r/o progression of CAD cardiomyopathy, chronic systolic HF: - reduced EF compared to prior echo from 2018, several areas of ischemia on today's stress test - volume management per renal (ESRD with HD) - cont ARB, bb - in light of new reduction of LVEF and multi-territory ischemia will recommend cath to r/o progression of CAD CAD: - NSTEMI 10/2017 s/p SOURAV x 2 to LCX - cont home aspirin, statin, bb esrd: -hd per renal htn: -cont home meds
[2019-04-03] MEDS: PANTOPRAZOLE 40 MG TABLET PO SCH (14:43)
[2019-04-03] MEDS: ASPIRIN 81 MG CHEWABLE TABLETS PO SCH (14:43)
[2019-04-03] MEDS: METOPROLOL TARTRATE 25 MG TABLET (FP) PO SCH ×2 (14:43→21:14)
[2019-04-03] MEDS: LOSARTAN POTASSIUM 50 MG TABLET (FP) PO SCH (14:43)
--- NOTE | 2019-04-03 16:06 | PN ---
Progress Note, Physician History of Present Illness: stable no new issues - Current Medication List Current Medications: Active Medications Acetaminophen (Tylenol -) 650 mg PO Q6H PRN PRN Reason: FEVER Last Admin: 04/01/19 22:38 Dose: 650 mg Albuterol/Ipratropium (Duoneb -) 1 amp NEB Q4H PRN PRN Reason: SHORTNESS OF BREATH Aspirin (Asa -) 81 mg PO DAILY [facility] Last Admin: 04/03/19 14:43 Dose: 81 mg Atorvastatin Calcium (Lipitor -) 80 mg PO HS [facility] Last Admin: 04/02/19 21:48 Dose: 80 mg Diphenhydramine HCl (Benadryl -) 25 mg PO Q6H PRN PRN Reason: FOR ITCHING Losartan Potassium (Cozaar -) 100 mg PO DAILY [facility] Last Admin: 04/03/19 14:43 Dose: 100 mg Metoprolol Tartrate (Lopressor -) 12.5 mg PO BID [facility] Last Admin: 04/03/19 14:43 Dose: 12.5 mg Pantoprazole Sodium (Protonix -) 40 mg PO DAILY [facility] Last Admin: 04/03/19 14:43 Dose: 40 mg - Objective Vital Signs: Vital Signs Temperature 98.4 F 04/03/19 09:35 Pulse Rate 101 H 04/03/19 14:15 Respiratory Rate 04/03/19 14:15 Blood Pressure 129/97 04/03/19 14:15 O2 Sat by Pulse Oximetry (%) 96 04/03/19 09:00 Constitutional: Yes: No Distress, Calm Cardiovascular: Yes: S1, S2 Respiratory: Yes: Regular, CTA Bilaterally Gastrointestinal: Yes: Normal Bowel Sounds, Soft Musculoskeletal: Yes: WNL Extremities: Yes: WNL Labs: CBC, BMP 03/30/19 09:38 04/02/19 11:15 INR, PTT INR 1.28 (0.83-1.09) H 03/30/19 09:38 Assessment/Plan 43 year old gentleman with history of ESRD on HD (TTS), Hypertension, PCKD, Gout, CAD s/p PA and stent who presented from whole with several day history of shortness of breath with associated chest pain with radiation to left shoulder. 1. Chest pain with shortness of breath 2. ESRD 3. Hypertension 3. PCKD 4. CAd s/p PA with PCI and stenting 5. Hx of Gout now feels better continue current mgmt monitor rest as per the team cx reports noted
[2019-04-03] MEDS ORDERED: SODIUM CHLORIDE 250 ML IV PRN (20:23)
[2019-04-03] MEDS: ATORVASTATIN CA 80 MG TABLET (FP) PO SCH (21:14)
[2019-04-04] MEDS: ACETAMINOPHEN 325 MG TABLET (FP) PO PRN (05:46)
[2019-04-04] MEDS: LOSARTAN POTASSIUM 50 MG TABLET (FP) PO SCH (09:50)
[2019-04-04] MEDS: METOPROLOL TARTRATE 25 MG TABLET (FP) PO SCH ×2 (09:51→21:42)
[2019-04-04] MEDS: ASPIRIN 81 MG CHEWABLE TABLETS PO SCH (09:52)
[2019-04-04] MEDS: PANTOPRAZOLE 40 MG TABLET PO SCH (09:52)
[2019-04-04] MEDS ORDERED: PT OWN MED DRAWER 7, Y5N ONE (10:50)
[2019-04-04] MEDS: HEPARIN NA (PORCINE) 5,000 UNITS/ML 1ML VIAL IVPUSH SCH ×4 (11:00→15:04)
--- NOTE | 2019-04-04 11:59 | PN ---
Progress Note (short form) - Note Progress Note: s: no palps, dizziness, edema, sob cp Current Medications Generic Name Dose Route Start Last Admin Trade Name Freq PRN Reason Stop Dose Admin Acetaminophen 650 mg 03/30/19 16:47 04/04/19 05:46 Tylenol - PO 650 mg Q6H PRN Administration FEVER Albuterol/Ipratropium 1 amp 03/30/19 16:47 Duoneb - NEB Q4H PRN SHORTNESS OF BREATH Aspirin 81 mg 03/31/19 10:00 04/04/19 09:52 Asa - PO 81 mg DAILY [facility] Administration Atorvastatin Calcium 80 mg 03/30/19 22:00 04/03/19 21:14 Lipitor - PO 80 mg HS [facility] Administration Diphenhydramine HCl 25 mg 04/01/19 18:07 Benadryl - PO Q6H PRN FOR ITCHING Heparin Sodium (Porcine) 300 unit 04/04/19 11:15 Heparin - IVPUSH 04/04/19 14:16 Q1H ES Losartan Potassium 100 mg 03/31/19 10:00 04/04/19 09:50 Cozaar - PO Not Given DAILY [facility] Metoprolol Tartrate 12.5 mg 03/30/19 22:00 04/04/19 09:51 Lopressor - PO 12.5 mg BID [facility] Administration Pantoprazole Sodium 40 mg 03/31/19 10:00 04/04/19 09:52 Protonix - PO 40 mg DAILY [facility] Administration Vital Signs Period Temp Pulse Resp BP Sys/Hilario Pulse Ox Last 24 Hr 97.6 F-98.3 F 82-101 18-20 122-142/77-101 97-98 nad no jvd rrr s1s2 no mrg cta bl nl eff aaox3 no le e/c/c abd nt nd pos bs no jaundice diaphoresis pos dp pt no carotid bruits CBC, BMP 03/30/19 09:38 04/02/19 11:15 echo 10/2018 [facility] normal left ventricular size overall normal left ventricular systolic function (segmental); ejection fraction = 55 % decreased left ventricular compliance normal right ventricular size normal right ventricular function no evidence for aortic regurgitation minimal mitral regurgitation mild tricuspid regurgitation no evidence for pulmonary hypertension minimal pulmonic regurgitation moderate to severe left atrial dilatation normal right atrial size no evidence for pericardial effusion cath 10/2017 1 vessel CAD s/p SOURAV x 2 to LCx echo 03/2019 mild conc LVH, severely reduced LV function EF 20%, impaired relaxation, mild MR, mod TR CTA chest no PE, atherosclerotic coronary calcifications ecg: sinus tach, no ischemic changes tele sinus a/p: 43 m hx pckd with esrd on hd, htn, CAD, NSTEMI p/w short of breath, fevers , cough. shortness of breath, chest pain: - CTA chest no PE, less likely PNA - trop indeterminate range, EKG no ischemic changes - unlikely ACS - echo with new cardiomyopathy, however no congestion on CXR, appears euvolemic - feels better after HD - Lexiscan MPI here with anterior and inferior ischemia and severely reduced EF - Plan is for cath when be available at [facility] to r/o progression of CAD cardiomyopathy, chronic systolic HF: - reduced EF compared to prior echo from 2018, several areas of ischemia on today's stress test - volume management per renal (ESRD with HD) - cont ARB, bb - in light of new reduction of LVEF and multi-territory ischemia will plan for cath to r/o progression of CAD CAD: - NSTEMI 10/2017 s/p SOURAV x 2 to LCX - cont home aspirin, statin, bb esrd: -hd per renal htn: -cont home meds
[2019-04-04 12:20] LABS: HEMATOCRIT 32.7 % (35.4-49); HEMOGLOBIN 10.7 GM/dL (11.7-16.9); MCH 27.3 pg (25.7-33.7); MCHC 32.6 g/dl (32.0-35.9); MEAN CELL VOLUME 83.7 fl (80-96); MEAN PLT VOLUME 8.6 fl (7.5-11.1); PLATELET COUNT 188 K/MM3 (134-434); RBC 3.91 M/mm3 (4.00-5.60); RDW 17.6 % (11.9-15.9); WHITE BLOOD COUNT 6.7 K/mm3 (4.0-10.0)
[2019-04-04 12:51] LABS: BLOOD UREA NITROGEN 53.8 mg/dL (7-18); CALCIUM 8.5 mg/dL (8.5-10.1); POTASSIUM 4.1 mmol/L (3.5-5.1)
[2019-04-04 13:00] LABS: CREATININE 9.6 mg/dL (0.55-1.3)
--- NOTE | 2019-04-04 13:35 | PN ---
Progress Note, Physician - Current Medication List Current Medications: Active Medications Acetaminophen (Tylenol -) 650 mg PO Q6H PRN PRN Reason: FEVER Last Admin: 04/04/19 05:46 Dose: 650 mg Albuterol/Ipratropium (Duoneb -) 1 amp NEB Q4H PRN PRN Reason: SHORTNESS OF BREATH Aspirin (Asa -) 81 mg PO DAILY [facility] Last Admin: 04/04/19 09:52 Dose: 81 mg Atorvastatin Calcium (Lipitor -) 80 mg PO HS [facility] Last Admin: 04/03/19 21:14 Dose: 80 mg Diphenhydramine HCl (Benadryl -) 25 mg PO Q6H PRN PRN Reason: FOR ITCHING Heparin Sodium (Porcine) (Heparin -) 300 unit IVPUSH Q1H [facility] Stop: 04/04/19 14:16 Losartan Potassium (Cozaar -) 100 mg PO DAILY [facility] Last Admin: 04/04/19 09:50 Dose: Not Given Metoprolol Tartrate (Lopressor -) 12.5 mg PO BID [facility] Last Admin: 04/04/19 09:51 Dose: 12.5 mg Pantoprazole Sodium (Protonix -) 40 mg PO DAILY [facility] Last Admin: 04/04/19 09:52 Dose: 40 mg - Objective Vital Signs: Vital Signs Temperature 97.7 F 04/04/19 09:54 Pulse Rate 77 04/04/19 13:05 Respiratory Rate 18 04/04/19 13:05 Blood Pressure 125/73 04/04/19 13:05 O2 Sat by Pulse Oximetry (%) 97 04/04/19 08:06 Constitutional: Yes: No Distress HENT: Yes: Atraumatic Neck: Yes: Supple Cardiovascular: Yes: Regular Rate and Rhythm Respiratory: Yes: CTA Bilaterally Gastrointestinal: Yes: Normal Bowel Sounds Extremities: Yes: WNL Neurological: Yes: Alert, Oriented Labs: CBC, BMP 04/04/19 11:00 04/04/19 11:00 INR, PTT INR 1.28 (0.83-1.09) H 03/30/19 09:38 Problem List - Problems (1) Chest pain Assessment/Plan: positive stress zulma for cath continue current meds Code(s): R07.9 - CHEST PAIN, UNSPECIFIED Qualifiers: Chest pain type: chest pain on breathing Qualified Code(s): R07.1 - Chest pain on breathing; R07.81 - Pleurodynia (2) Elevated brain natriuretic peptide (BNP) level Code(s): R79.89 - OTHER SPECIFIED ABNORMAL FINDINGS OF BLOOD CHEMISTRY (3) PNA (pneumonia) Assessment/Plan: not on abx stable Code(s): J18.9 - PNEUMONIA, UNSPECIFIED ORGANISM Qualifiers: Pneumonia type: due to unspecified organism Laterality: right Lung location: middle lobe of lung Qualified Code(s): J18.9 - Pneumonia, unspecified organism (4) ESRD (end stage renal disease) Code(s): N18.6 - END STAGE RENAL DISEASE
--- NOTE | 2019-04-04 14:26 | PN ---
Progress Note (short form) - Note Progress Note: seen on dialysis Active Medications Acetaminophen (Tylenol -) 650 mg PO Q6H PRN PRN Reason: FEVER Last Admin: 04/04/19 05:46 Dose: 650 mg Albuterol/Ipratropium (Duoneb -) 1 amp NEB Q4H PRN PRN Reason: SHORTNESS OF BREATH Aspirin (Asa -) 81 mg PO DAILY [facility] Last Admin: 04/04/19 09:52 Dose: 81 mg Atorvastatin Calcium (Lipitor -) 80 mg PO HS [facility] Last Admin: 04/03/19 21:14 Dose: 80 mg Diphenhydramine HCl (Benadryl -) 25 mg PO Q6H PRN PRN Reason: FOR ITCHING Losartan Potassium (Cozaar -) 100 mg PO DAILY [facility] Last Admin: 04/04/19 09:50 Dose: Not Given Metoprolol Tartrate (Lopressor -) 12.5 mg PO BID [facility] Last Admin: 04/04/19 09:51 Dose: 12.5 mg Pantoprazole Sodium (Protonix -) 40 mg PO DAILY [facility] Last Admin: 04/04/19 09:52 Dose: 40 mg Last Vital Signs Temp Pulse Resp BP Pulse Ox 97.7 F 76 18 125/79 97 04/04/19 09:54 04/04/19 14:05 04/04/19 14:05 04/04/19 14:05 04/04/19 08:06 CBC, BMP 04/04/19 11:00 04/04/19 11:00
--- NOTE | 2019-04-04 15:40 | PN ---
Progress Note, Physician - Current Medication List Current Medications: Active Medications Acetaminophen (Tylenol -) 650 mg PO Q6H PRN PRN Reason: FEVER Last Admin: 04/04/19 05:46 Dose: 650 mg Albuterol/Ipratropium (Duoneb -) 1 amp NEB Q4H PRN PRN Reason: SHORTNESS OF BREATH Aspirin (Asa -) 81 mg PO DAILY [facility] Last Admin: 04/04/19 09:52 Dose: 81 mg Atorvastatin Calcium (Lipitor -) 80 mg PO HS [facility] Last Admin: 04/03/19 21:14 Dose: 80 mg Diphenhydramine HCl (Benadryl -) 25 mg PO Q6H PRN PRN Reason: FOR ITCHING Losartan Potassium (Cozaar -) 100 mg PO DAILY [facility] Last Admin: 04/04/19 09:50 Dose: Not Given Metoprolol Tartrate (Lopressor -) 12.5 mg PO BID [facility] Last Admin: 04/04/19 09:51 Dose: 12.5 mg Pantoprazole Sodium (Protonix -) 40 mg PO DAILY [facility] Last Admin: 04/04/19 09:52 Dose: 40 mg - Objective Vital Signs: Vital Signs Temperature 97.7 F 04/04/19 09:54 Pulse Rate 79 04/04/19 14:45 Respiratory Rate 18 04/04/19 14:45 Blood Pressure 128/76 04/04/19 14:45 O2 Sat by Pulse Oximetry (%) 97 04/04/19 08:06 Labs: CBC, BMP 04/04/19 11:00 04/04/19 11:00 INR, PTT INR 1.28 (0.83-1.09) H 03/30/19 09:38
[2019-04-04] MEDS: ATORVASTATIN CA 80 MG TABLET (FP) PO SCH (21:42)
[2019-04-05] MEDS: LOSARTAN POTASSIUM 50 MG TABLET (FP) PO SCH (09:44)
[2019-04-05] MEDS: PANTOPRAZOLE 40 MG TABLET PO SCH (09:44)
[2019-04-05] MEDS: ASPIRIN 81 MG CHEWABLE TABLETS PO SCH (09:44)
[2019-04-05] MEDS: METOPROLOL TARTRATE 25 MG TABLET (FP) PO SCH (09:44)
--- NOTE | 2019-04-05 10:22 | PN ---
Progress Note (short form) - Note Progress Note: s: no palps, dizziness, edema, sob cp Current Medications Generic Name Dose Route Start Last Admin Trade Name Freq PRN Reason Stop Dose Admin Acetaminophen 650 mg 03/30/19 16:47 04/04/19 05:46 Tylenol - PO 650 mg Q6H PRN Administration FEVER Aspirin 81 mg 03/31/19 10:00 04/05/19 09:44 Asa - PO 81 mg DAILY ES Administration Atorvastatin Calcium 80 mg 03/30/19 22:00 04/04/19 21:42 Lipitor - PO 80 mg HS ES Administration Diphenhydramine HCl 25 mg 04/01/19 18:07 Benadryl - PO Q6H PRN FOR ITCHING Losartan Potassium 100 mg 03/31/19 10:00 04/05/19 09:44 Cozaar - PO 100 mg DAILY ES Administration Metoprolol Tartrate 12.5 mg 03/30/19 22:00 04/05/19 09:44 Lopressor - PO 12.5 mg BID ES Administration Pantoprazole Sodium 40 mg 03/31/19 10:00 04/05/19 09:44 Protonix - PO 40 mg DAILY ES Administration Vital Signs Period Temp Pulse Resp BP Sys/Hilario Pulse Ox Last 24 Hr 97.9 F-98.4 F 71-96 16-20 113-142/69-97 98-100 nad no jvd rrr s1s2 no mrg cta bl nl eff aaox3 no le e/c/c abd nt nd pos bs no jaundice diaphoresis pos dp pt no carotid bruits CBC, BMP 04/04/19 11:00 04/04/19 11:00 echo 10/2018 [facility] [place] left ventricular size overall normal left ventricular systolic function (segmental); ejection fraction = 55 % decreased left ventricular compliance normal right ventricular size normal right ventricular function no evidence for aortic regurgitation minimal mitral regurgitation mild tricuspid regurgitation no evidence for pulmonary hypertension minimal pulmonic regurgitation moderate to severe left atrial dilatation normal right atrial size no evidence for pericardial effusion cath 10/2017 1 vessel CAD s/p SOURAV x 2 to LCx echo 03/2019 mild conc LVH, severely reduced LV function EF 20%, impaired relaxation, mild MR, mod TR CTA chest no PE, atherosclerotic coronary calcifications ecg: sinus tach, no ischemic changes tele sinus, 6 beats nsvt a/p: 43 m hx pckd with esrd on hd, htn, CAD, NSTEMI p/w short of breath, fevers , cough. shortness of breath, chest pain: - CTA chest no PE, less likely PNA - trop indeterminate range, EKG no ischemic changes - unlikely ACS - echo with new cardiomyopathy, however no congestion on CXR, appears euvolemic - feels better after HD - Lexiscan MPI here with anterior and inferior ischemia and severely reduced EF - Plan is for cath at [facility] to r/o progression of CAD cardiomyopathy, chronic systolic HF: - reduced EF compared to prior echo from 2018, several areas of ischemia on today's stress test - volume management per renal (ESRD with HD) - cont ARB, bb - in light of new reduction of LVEF and multi-territory ischemia will plan for cath to r/o progression of CAD CAD: - NSTEMI 10/2017 s/p SOURAV x 2 to LCX - cont home aspirin, statin, bb esrd: -hd per renal htn: -cont home meds
[2019-04-05 11:25] VITALS: BP 137/97; PULSE 97; TEMP 97
--- NOTE | 2019-04-05 18:14 | DS ---
Physical Examination Vital Signs: Vital Signs Temperature 97 F L 04/05/19 10:00 Pulse Rate 97 H 04/05/19 10:00 Respiratory Rate 18 04/05/19 10:00 Blood Pressure 137/97 04/05/19 10:00 O2 Sat by Pulse Oximetry (%) 100 04/05/19 08:28 Labs: CBC, BMP 04/04/19 11:00 04/04/19 11:00 Discharge Summary Problems reviewed: Yes Reason For Visit: ELEVATED BRAIN NATRIURETIC PEPTIDE Condition: Stable - Instructions Disposition: TRANSFER ACUTE CARE/OTHER HOSP - Home Medications Comprehensive Discharge Medication List: Ambulatory Orders ASA - 81 mg PO DAILY 03/31/18 Lipitor 80 mg PO HS 03/31/18 Losartan Potassium 100 mg PO DAILY 03/31/18 Metoprolol Tartrate 12.5 mg PO BID 03/31/18 Omeprazole 40 mg PO DAILY 03/31/18 transfer for cath
== END 2019-04-05 12:30 | disposition short-term general hospital (02) | DRG 302 ==
LOC: JER 08:39 → JERBED 11:45 → J4W 03-31 18:48
PROVIDERS: ADMIT Internal Medicine; ATTEND Internal Medicine
PROC: 5A1D70Z Performance of Urinary Filtration, Intermittent, Less than 6 Hours Per Day (ICD-10-PCS; principal; 2019-04-04)
DX: I25.119 Atherosclerotic heart disease of native coronary artery with unspecified angina pectoris (principal); N18.6 End stage renal disease; I13.2 Hypertensive heart and chronic kidney disease with heart failure and with stage 5 chronic kidney disease, or end stage renal disease; I50.22 Chronic systolic (congestive) heart failure; E87.2 Acidosis; I42.9 Cardiomyopathy, unspecified; R07.9 Chest pain, unspecified; Z95.5 Presence of coronary angioplasty implant and graft; R06.02 Shortness of breath; Z99.2 Dependence on renal dialysis
CPT/HCPCS: 36415; 71046-TC-FY; 71275-TC; 78452-TC; 80048; 80053; 82550; 82553; 82803; 83605; 83735; 83880; 84100; 84484; 85025; 85027; 85610; 85730; 86803; 87040; 87340; 87804; 93005; 93010; 93017; 93306-TC; 99285-25; A9502; J1644; J2785; Q9967

== ENCOUNTER 2019-04-24 03:47 | Inpatient (IN) | payer OTHER ==
[2019-04-24] MEDS ORDERED: ASPIRIN 81 MG CHEWABLE TABLETS PO ONE (04:55)
[2019-04-24] MEDS ORDERED: ASPIRIN 81 MG CHEWABLE TABLETS ONE (05:12)
[2019-04-24 05:32] LABS: EOS % 0.7 % (0-4.5); HEMATOCRIT 38.7 % (35.4-49); HEMOGLOBIN 12.8 GM/dL (11.7-16.9); LYMPH % 13.8 % (8-40); MCH 27.9 pg (25.7-33.7); MCHC 33.1 g/dl (32.0-35.9); MEAN CELL VOLUME 84.2 fl (80-96); MEAN PLT VOLUME 8.8 fl (7.5-11.1); MONO % 7.9 % (3.8-10.2); NEUT % 76.6 % (42.8-82.8); PLATELET COUNT 179 K/MM3 (134-434); RDW 19.1 % (11.9-15.9); WHITE BLOOD COUNT 7.7 K/mm3 (4.0-10.0)
--- NOTE | 2019-04-24 05:43 | PDOC ---
History of Present Illness - General Chief Complaint: Shortness of Breath Stated Complaint: DIFFICULTY BREATHING,CHEST PAIN Time Seen by Provider: 04/24/19 04:38 History Source: Patient Exam Limitations: No Limitations - History of Present Illness Initial Comments: Miguel Malagon is a 43 yo M w a hx of [place] s/p stent, PCKD on ESRD for the past 2 years (/Sat - AVF to [facility]), and HTN who presents to the [facility] er with SOB and difficulty breathing stating his chest hurts and this is how his chest felt the last time he had a heart attack. He states he was recently hospitalized at [facility] where he was diagnosed with heart failure. He presents today because he is extremely short of breath and cannot catch his breath. The patient states that recently when he lies down he feels like he is choking. He also says any physical activity worsens his chest pain and he starts feeling a tight pressure like substernal sensation. He endorses constant nausea but no emesis. Also endorses a significant amount of diaphoresis with any physical exertion. Last dialysis was yesterday and he completed his course. Mud Engineer: Dr. Cunningham Cards: Adria García PCP: None Social Hx: Denies smoking, drinking, or illicit drug usage Allergies: NKA, NKDA Psh: Stent Past History - Past Medical History Allergies/Adverse Reactions: Allergies Allergy/AdvReac Type Severity Reaction Status Date / Time No Known Allergies Allergy Verified 04/24/19 04:28 Home Medications: Ambulatory Orders ASA - 81 mg PO DAILY 03/31/18 Lipitor 80 mg PO HS 03/31/18 Losartan Potassium 100 mg PO DAILY 03/31/18 Metoprolol Tartrate 12.5 mg PO BID 03/31/18 Omeprazole 40 mg PO DAILY 03/31/18 Anemia: No Asthma: No Cancer: No Cardiac Disorders: No CVA: No COPD: No CHF: No Dementia: No Diabetes: No Dialysis: Yes (,,sat) GI Disorders: No Disorders: Yes HTN: Yes Hypercholesterolemia: No Kidney Stones: (Renal insufficiency) Liver Disease: No Seizures: No Thyroid Disease: No - Surgical History Abdominal Surgery: No Appendectomy: No Cardiac Surgery: No Cholecystectomy: No Lung Surgery: No Neurologic Surgery: No Orthopedic Surgery: No - Psycho Social/Smoking Cessation Hx Smoking History: Unknown if ever smoked Have you smoked in the past 12 months: No Information on smoking cessation initiated: No Hx Alcohol Use: No Drug/Substance Use Hx: No Substance Use Type: None Hx Substance Use Treatment: No Review of Systems - Review of Systems Able to Perform ROS?: Yes Comments:: CONSTITUTIONAL: Present: fatigue Absent: fever, no chills EYES: Absent: visual changes ENT: Absent: ear pain, no sore throat CARDIOVASCULAR: Present: Chest pain Absent: no palpitations RESPIRATORY: Present: SOB Absent: cough GI: Present: Nausea Absent: abdominal pain, no vomiting, no constipation, no diarrhea GENITOURINARY: Absent: dysuria, no frequency, no hematuria MUSKULOSKELETAL: Absent: back pain, no arthralgia, no myalgia SKIN: Absent: rash NEURO: Absent: headache *Physical Exam - Vital Signs Last Vital Signs Temp Pulse Resp BP Pulse Ox 98.1 F 89 20 130/89 97 04/24/19 04:28 04/24/19 04:28 04/24/19 04:28 04/24/19 04:28 04/24/19 04:28 - Physical Exam GENERAL: Patient appears tired and short of breath. Moderate apparent distress. HEENT: Normocephalic, atraumatic. PERRL, EOM intact. CARDIOVASCULAR: Regular rate and rhythm. PULMONARY: b/l crackles at the bases ABDOMEN: Soft, non-distended, non-tender. EXTREMITIES: RUE fistula. Normal ROM in all four extremities. No gross deformities. SKIN: Warm, dry. No rash NEUROLOGICAL: No focal neurological deficits. ED Treatment Course - LABORATORY CBC & Chemistry Diagram: 04/24/19 05:12 04/24/19 05:12 - ADDITIONAL ORDERS Additional order review: 04/24/19 05:12 RBC 4.60 MCV 84.2 MCHC 33.1 RDW 19.1 H MPV 8.8 Neutrophils % 76.6 Lymphocytes % 13.8 D Monocytes % 7.9 Eosinophils % 0.7 D Basophils % 1.0 - RADIOLOGY Radiology Studies Ordered: Category Date Time Status CHEST PA & LAT [RAD] Stat Radiology 04/24/19 04:55 Ordered - Medications Given in the ED: ED Medications Discontinued Medications Generic Name Dose Route Start Last Admin Trade Name Freq PRN Reason Stop Dose Admin Aspirin 162 mg 04/24/19 04:55 04/24/19 05:14 Asa - PO 04/24/19 04:56 162 mg ONCE ONE Administration Medical Decision Making - Medical Decision Making Miguel Malagon is a 43 yo M w a hx of [place] s/p stent, PCKD on ESRD for the past 2 years (T//Sat - AVF to [facility]), and HTN who presents to the [facility] er with SOB and difficulty breathing stating his chest hurts and this is how his chest felt the last time he had a heart attack. He states he was recently hospitalized at [facility] where he was diagnosed with heart failure. He presents today because he is extremely short of breath and cannot catch his breath. The patient states that recently when he lies down he feels like he is choking. He also says any physical activity worsens his chest pain and he starts feeling a tight pressure like substernal sensation. He endorses constant nausea but no emesis. Also endorses a significant amount of diaphoresis with any physical exertion. Last dialysis was yesterday and he completed his course. Vital Signs Temp Pulse Resp BP Pulse Ox 98.1 F 89 20 130/89 97 04/24/19 04:28 04/24/19 04:28 04/24/19 04:28 04/24/19 04:28 04/24/19 04:28 DDx IBNLT: Heart Failure, ACS, anemia, electrolyte/metabolic disturbance POCUS echo: Cardiac: Patient has a severely reduced EF - EPSS 1.5 which correlates with an EF of aroun 30%. No FWMA. No pericardial effusion. Normal LV/RV ratio. Overall very large heart. Lungs: Trace B-lines at the bases, no pleural effusion. Normal A-lines b/l. Normal lung sliding. IVC: Plethoric and plump. Minimal variation with respiration. - Patient is likely fluid overloaded and cannot handle much fluid. Labs: CBC,CMP WBC 7.7 K/mm3 (4.0-10.0) 04/24/19 05:12 RBC 4.60 M/mm3 (4.00-5.60) 04/24/19 05:12 Hgb 12.8 GM/dL (11.7-16.9) 04/24/19 05:12 Hct 38.7 % (35.4-49) D 04/24/19 05:12 MCV 84.2 fl (80-96) 04/24/19 05:12 MCH 27.9 pg (25.7-33.7) 04/24/19 05:12 MCHC 33.1 g/dl (32.0-35.9) 04/24/19 05:12 RDW 19.1 % (11.9-15.9) H 04/24/19 05:12 Plt Count 179 K/MM3 (134-434) 04/24/19 05:12 MPV 8.8 fl (7.5-11.1) 04/24/19 05:12 Absolute Neuts (auto) 5.9 K/mm3 (1.5-8.0) 04/24/19 05:12 Neutrophils % 76.6 % (42.8-82.8) 04/24/19 05:12 Lymphocytes % 13.8 % (8-40) D 04/24/19 05:12 Monocytes % 7.9 % (3.8-10.2) 04/24/19 05:12 Eosinophils % 0.7 % (0-4.5) D 04/24/19 05:12 Basophils % 1.0 % (0-2.0) 04/24/19 05:12 Nucleated RBC % 0 % (0-0) 04/24/19 05:12 Sodium 132 mmol/L (136-145) L 04/24/19 05:12 Potassium 4.4 mmol/L (3.5-5.1) 04/24/19 05:12 Chloride 96 mmol/L (98-107) L 04/24/19 05:12 Carbon Dioxide 26 mmol/L (21-32) 04/24/19 05:12 Anion Gap 10 MMOL/L (8-16) 04/24/19 05:12 BUN 29.6 mg/dL (7-18) H 04/24/19 05:12 Creatinine 6.4 mg/dL (0.55-1.3) H 04/24/19 05:12 Est GFR (CKD-EPI)AfAm 11.20 04/24/19 05:12 Est GFR (CKD-EPI)NonAf 9.66 04/24/19 05:12 Random Glucose 89 mg/dL (74-106) 04/24/19 05:12 Calcium 8.4 mg/dL (8.5-10.1) L 04/24/19 05:12 Magnesium 2.3 mg/dL (1.8-2.4) 04/24/19 05:12 Total Bilirubin 1.1 mg/dL (0.2-1) H 04/24/19 05:12 AST 175 U/L (15-37) H 04/24/19 05:12 ALT 278 U/L (13-61) H 04/24/19 05:12 Creatine Kinase 122 U/L (26-308) 04/24/19 05:12 Troponin I 0.04 ng/ml (0.00-0.05) 04/24/19 05:12 B-Natriuretic Peptide > 17080.0 pg/ml (5-125) H 04/24/19 05:12 Total Protein 7.7 g/dl (6.4-8.2) 04/24/19 05:12 Albumin 3.8 g/dl (3.4-5.0) 04/24/19 05:12 MDM: Patient needs to be admitted for heart failure Dispo: Telemetry - Signing patient out to Dr. Giron to give report to hospitalist and complete ED admission Discharge - Discharge Information Problems reviewed: Yes Clinical Impression/Diagnosis: Heart failure Qualifiers: Heart failure type: unspecified Heart failure chronicity: unspecified Qualified Code(s): I50.9 - Heart failure, unspecified Condition: Stable - Admission Yes - Follow up/Referral - Patient Discharge Instructions - Post Discharge Activity
[2019-04-24 05:46] LABS: INR 1.55 (0.83-1.09); PROTHROMBIN TIME (PATIENT) 18.4 SEC (9.7-13.0)
--- NOTE | 2019-04-24 05:49 | PDOC ---
Attending Attestation - Resident Resident Name: Man Vargas - ED Attending Attestation I have performed the following: I have examined & evaluated the patient, The case was reviewed & discussed with the resident, I agree w/resident's findings & plan, Exceptions are as noted - HPI HPI: 04/24/19 07:21 See resident HPI - Physicial Exam PE: 04/24/19 07:21 Agree with documented exam - Medical Decision Making 04/24/19 07:21 43M pmh [place] s/p stenting, PCKD on HD here with several days of progressive exertional cp and dyspnea that worsens when laying flat POCUS echo labs including bnp, cxr, ekg POCUS with EF approximately 30%, trace b-lines, plethoric IVC BNP>35k Overload in patient likely with low reserve will require admission for further care
[2019-04-24 05:58] LABS: ALBUMIN 3.8 g/dl (3.4-5.0); BILIRUBIN,TOTAL 1.1 mg/dL (0.2-1); BLOOD UREA NITROGEN 29.6 mg/dL (7-18); CALCIUM 8.4 mg/dL (8.5-10.1); CREATININE 6.4 mg/dL (0.55-1.3); POTASSIUM 4.4 mmol/L (3.5-5.1); TOT PROT 7.7 g/dl (6.4-8.2)
[2019-04-24 06:00] LABS: MAGNESIUM 2.3 mg/dL (1.8-2.4); N-TERMINAL BNP > 35000.0 pg/ml (5-125)
[2019-04-24] MEDS ORDERED: FUROSEMIDE 40 MG/4 ML INJECTABLE VIAL IVPUSH ONE (06:54)
--- NOTE | 2019-04-24 07:22 | PDOC ---
*Physical Exam - Vital Signs Last Vital Signs Temp Pulse Resp BP Pulse Ox 98.1 F 89 20 130/89 97 04/24/19 04:28 04/24/19 04:28 04/24/19 04:28 04/24/19 04:28 04/24/19 04:28 ED Treatment Course - LABORATORY CBC & Chemistry Diagram: 04/25/19 06:05 04/25/19 06:05 - ADDITIONAL ORDERS Additional order review: Laboratory Results 04/24/19 04/24/19 04/24/19 05:12 05:12 05:12 PT with INR 18.40 H INR 1.55 H PTT (Actin FS) 39.0 H Sodium 132 L Potassium 4.4 Chloride 96 L Carbon Dioxide 26 Anion Gap 10 BUN 29.6 H Creatinine 6.4 H Est GFR (CKD-EPI)AfAm 11.20 Est GFR (CKD-EPI)NonAf 9.66 Random Glucose 89 Calcium 8.4 L Magnesium 2.3 Total Bilirubin 1.1 H AST 175 H ALT 278 H Alkaline Phosphatase 163 H Creatine Kinase 122 Troponin I 0.04 B-Natriuretic Peptide > 52077.0 H Total Protein 7.7 Albumin 3.8 04/24/19 05:12 RBC 4.60 MCV 84.2 MCHC 33.1 RDW 19.1 H MPV 8.8 Neutrophils % 76.6 Lymphocytes % 13.8 D Monocytes % 7.9 Eosinophils % 0.7 D Basophils % 1.0 - Medications Given in the ED: ED Medications Discontinued Medications Generic Name Dose Route Start Last Admin Trade Name Freq PRN Reason Stop Dose Admin Aspirin 162 mg 04/24/19 04:55 04/24/19 05:14 Asa - PO 04/24/19 04:56 162 mg ONCE ONE Administration Medical Decision Making - Medical Decision Making 04/24/19 07:17 Signed out to me by Dr. Vargas. Miguel Carlin is a 43M with PMH HTN, [place] s/p stent, CHF, ESRD on // HD presents with chest pain with nausea, SOB, and diaphoresis. VS stable. Bedside US shows B-lines, non-collapsing IJ, poor EF, enlarged heart. Labs show no trop elevation but highly elevated BNP. Requires admission for CHF exacerbation. 04/24/19 07:[address] Almanzar for admission to [facility] under Dr. Amador. Discharge - Discharge Information Problems reviewed: Yes Clinical Impression/Diagnosis: Heart failure Qualifiers: Heart failure type: unspecified Heart failure chronicity: unspecified Qualified Code(s): I50.9 - Heart failure, unspecified Condition: Stable - Follow up/Referral - Patient Discharge Instructions - Post Discharge Activity
[2019-04-24] MEDS ORDERED: FUROSEMIDE 40 MG/4 ML INJECTABLE VIAL ONE ×2 (07:24→12:53)
[2019-04-24] MEDS ORDERED: MAGNESIUM SULF 50% (8.12 MEQ/2 ML-1 GM VIAL) IVPB ONE (08:47)
--- NOTE | 2019-04-24 09:09 | HP ---
CHIEF COMPLAINT: Epigastric Pain, SOB, nausea and vomiting PCP: Dr. Cunningham HISTORY OF PRESENT ILLNESS: Pt. is a 43 y.o. M w/ PMHx. of PCKD (ESRD:T, , ; last received HD yesterday- removed 1 kg, usually 1.3-1.5), CAD (s/p NE -2018 and SOURAV placement), HTN, Diastolic and Systolic CHF, and Gout presents for abdominal pain that has been present for the last week. Pt. states that he has been having associated difficulty breathing ("air hunger"), chills, epigastric pain that radiates to RUQ and LUQ. Pt. has been having NBNB emesis every morning for the last week associated with decreased PO intake because of nausea. Pt. endorses making a moderate amount of urine. Pt. denies having a fever at home. Pt. endorses BM yesterday. Pt. lives at home with brother and sister and is normally able to take care of himself. Pt. was recently admitted and transferred for cardiac catherization because of chest pain. Pt. did not have a stent placed. Pt.'s medications were adjusted: started Toprol 25mg XL. Recent Travel: No PAST MEDICAL HISTORY: As above PAST SURGICAL HISTORY: AVF placement, PCI x 2 Social History: Smoking: Denies Alcohol: Quit 5 years ago but prior had an occasional beer Drugs: Denies Family Hx.: is positive for PCKD in his mother and HTN. Pt.'s father as Heart Disease and Gout Allergies No Known Allergies Allergy (Verified 04/24/19 04:28) HOME MEDICATIONS: Home Medications Medication Instructions Recorded ASA - 81 mg PO DAILY 03/31/18 Lipitor 80 mg PO HS 03/31/18 Losartan Potassium 100 mg PO DAILY 03/31/18 Metoprolol Tartrate 12.5 mg PO BID 03/31/18 Omeprazole 40 mg PO DAILY 03/31/18 REVIEW OF SYSTEMS As above PHYSICAL EXAMINATION Vital Signs - 24 hr 04/24/19 04/24/19 04/24/19 04:28 08:01 08:37 Temperature 98.1 F 97.7 F Pulse Rate 89 Pulse Rate [ 89 Right Radial] Respiratory 20 26 H Rate Blood Pressure 130/89 Blood Pressure 126/89 [Left Arm] O2 Sat by Pulse 97 99 99 Oximetry (%) GENERAL: Awake, alert, and fully oriented, in no acute distress. HEAD: Normal with no signs of trauma. EYES: Pupils equal, round and reactive to light, sclera anicteric, conjunctiva clear. EARS, NOSE, THROAT: Dry mucous membranes. NECK: JVD positive, supple LUNGS: Breath sounds equal, clear to auscultation bilaterally. No wheezes, and no crackles. No accessory muscle use. HEART: Regular rate and rhythm, normal S1 and S2 ABDOMEN: Soft, Epigastric, RUQ and LUQ tenderness, BS +, no rebound or guarding MUSCULOSKELETAL: No CVA tenderness. UPPER EXTREMITIES: 2+ radial pulses, warm, well-perfused. LUE AVF, thrills and frills present LOWER EXTREMITIES: 2+ dorsal pedal pulses, warm, well-perfused. No calf tenderness. No peripheral edema. PSYCHIATRIC: Cooperative. Good eye contact. Appropriate mood and affect. SKIN: Warm, dry, normal turgor Laboratory Results - last 24 hr 04/24/19 04/24/19 04/24/19 05:12 05:12 05:12 WBC 7.7 RBC 4.60 Hgb 12.8 Hct 38.7 D MCV 84.2 MCH 27.9 MCHC 33.1 RDW 19.1 H Plt Count 179 MPV 8.8 Absolute Neuts (auto) 5.9 Neutrophils % 76.6 Lymphocytes % 13.8 D Monocytes % 7.9 Eosinophils % 0.7 D Basophils % 1.0 Nucleated RBC % 0 PT with INR INR PTT (Actin FS) Sodium 132 L Potassium 4.4 Chloride 96 L Carbon Dioxide 26 Anion Gap 10 BUN 29.6 H Creatinine 6.4 H Est GFR (CKD-EPI)AfAm 11.20 Est GFR (CKD-EPI)NonAf 9.66 Random Glucose 89 Calcium 8.4 L Magnesium 2.3 Total Bilirubin 1.1 H AST 175 H ALT 278 H Alkaline Phosphatase 163 H Creatine Kinase 122 Troponin I 0.04 B-Natriuretic Peptide > 42604.0 H Total Protein 7.7 Albumin 3.8 04/24/19 05:12 WBC RBC Hgb Hct MCV MCH MCHC RDW Plt Count MPV Absolute Neuts (auto) Neutrophils % Lymphocytes % Monocytes % Eosinophils % Basophils % Nucleated RBC % PT with INR 18.40 H INR 1.55 H PTT (Actin FS) 39.0 H Sodium Potassium Chloride Carbon Dioxide Anion Gap BUN Creatinine Est GFR (CKD-EPI)AfAm Est GFR (CKD-EPI)NonAf Random Glucose Calcium Magnesium Total Bilirubin AST ALT Alkaline Phosphatase Creatine Kinase Troponin I B-Natriuretic Peptide Total Protein Albumin ASSESSMENT/PLAN: Pt. is a 43 y.o. M w/ PMHx. of PCKD (ESRD:T, , ; last received HD yesterday - removed 1 kg, usually 1.3-1.5), CAD (s/p NE -2017 and SOURAV placement), HTN, Diastolic and Systolic CHF, and Gout presents for abdominal pain that has been present for the last week. #Abdominal Pain less likely to be active chest pain; likely a component of biliary sludge vs. Congestive hepatopathy given Low EF and BNP greater than 35,000, will r/o other potential causes in the interim Abd. US: shows thickened gall bladder wall without signs for cholecyctitis or cholelithiasis LFTs up trending now, f/u MRCP for possible sludge; there is concern about giving contrast in ESRD patient f/u EBV IGM antibodies, as heterophile test is a send out lab (low suspicion) Consult to GI appreciated Will hold Lipitor 80mg for hyperlipidemia f/u LDH #ESRD Consult to Nephrology appreciated HD TTHSa #HTN #Shortness of Breath 2/2 mixed CHF Echo (03/31/19): EF 20%, mild concentric LVH, mod. TR, impaired relaxation c/w Metoprolol 25 mg Daily Given 40mg and 80 mg IV Lasix to good response. Pt. states his breathing has improved significantly c/w Losartan 100mg Daily #Gout c/w Prednisone 7.5mg Daily f/u Rheumatology consults for Daily Prednisone for Gout, Pt. is not currently on Allopurinol f/u Uric acid level #FEN no IVF, encourage PO intake monitor electrolytes and replete as needed NPO #DVT Ppx. Hep SQ Visit type - Emergency Visit Emergency Visit: Yes ED Registration Date: 04/24/19 Care time: The patient presented to the Emergency Department on the above date and was hospitalized for further evaluation of their emergent condition. - New Patient This patient is new to me today: Yes Date on this admission: 04/24/19 - Critical Care Critical Care patient: No ATTENDING PHYSICIAN STATEMENT I saw and evaluated the patient. I reviewed the resident's note and discussed the case with the resident. I agree with the resident's findings and plan as documented. SUBJECTIVE: OBJECTIVE: ASSESSMENT AND PLAN:
[2019-04-24] MEDS ORDERED: MAGNESIUM SULF 50% (8.12 MEQ/2 ML-1 GM VIAL) ONE (09:49)
[2019-04-24] MEDS ORDERED: FUROSEMIDE 100 MG/10 ML INJECTABLE VIAL IVPB ONE (12:12)
--- NOTE | 2019-04-24 12:21 | EKG ---
Test Reason : Blood Pressure : / mmHG Vent. Rate : 081 BPM Atrial Rate : 081 BPM P-R Int : 150 ms QRS Dur : 088 ms QT Int : 440 ms P-R-T Axes : 063 065 041 degrees QTc Int : 511 ms NORMAL SINUS RHYTHM PROLONGED QT NONSPECIFIC ST ABNORMALITY ABNORMAL ECG Confirmed by MARYSOL BAXTER MD ([id number]) on 04/24/2019 12:21:08 PM Referred By: Confirmed By:MARYSOL BAXTER MD
[2019-04-24 12:56] LABS: ALBUMIN 3.8 g/dl (3.4-5.0); BILIRUBIN,DIRECT 0.5 mg/dL (0.0-0.2); BILIRUBIN,TOTAL 1.2 mg/dL (0.2-1); PHOSPHOROUS 3.8 mg/dL (2.5-4.9); TOT PROT 7.7 g/dl (6.4-8.2)
[2019-04-24] MEDS ORDERED: DOCUSATE SODIUM 100 MG CAPSULE (FP) PO PRN (14:22)
--- NOTE | 2019-04-24 14:59 | PN ---
Teaching Attending Note Name of Resident: Sam Almanzar ATTENDING PHYSICIAN STATEMENT I saw and evaluated the patient. I reviewed the resident's note and discussed the case with the resident. I agree with the resident's findings and plan as documented. 43 M h/o PCKD (ESRD:T, TH, ; last received HD yesterday- removed 1 kg, usually 1.3-1.5), CAD (s/p DC -2018 and SOURAV placement), HTN, Diastolic and Systolic CHF, and Gout presents for abdominal pain that has been present for the last week. When examining the patient, he endorses resolution of epigastric pain, but has some LLQ pain. Endorses no BM in 2-3 days, denies bleeding from any source. Endorses chronic SOB on exertion hes been having for months. Denies current CP/SOB/LOC/N/V/D/bleeding from any source. Received 1 dose of IV lasix w / improvement of SOB on presentaiton. PE GENERAL: Awake, alert, and fully oriented, in no acute distress, ambulating around bed HEAD: Normal with no signs of trauma. EYES: Pupils equal, round and reactive to light, sclera anicteric, conjunctiva clear. EARS, NOSE, THROAT: Dry mucous membranes. NECK: some JVD, supple LUNGS: CTAB no crackles or wheezing HEART: Regular rate and rhythm, normal S1 and S2 ABDOMEN: Soft, nontender RUQ/epigastrum, mild LLQ pain on palpation, no guarding BS+ MUSCULOSKELETAL: No CVA tenderness. UPPER EXTREMITIES: 2+ radial pulses, warm, well-perfused. LUE AVF, thrills and frills present LOWER EXTREMITIES: 2+ dorsal pedal pulses, warm, well-perfused. No calf tenderness. No peripheral edema. PSYCHIATRIC: Cooperative. Good eye contact. Appropriate mood and affect. SKIN: Warm, dry, normal turgor Vital Signs - 24 hr 04/24/19 04/24/19 04/24/19 04:28 08:01 08:37 Temperature 98.1 F 97.7 F Pulse Rate 89 Pulse Rate [ 89 Right Radial] Respiratory 20 26 H Rate Blood Pressure 130/89 Blood Pressure 126/89 [Left Arm] O2 Sat by Pulse 97 99 99 Oximetry (%) Laboratory Results - last 24 hr 04/24/19 04/24/19 04/24/19 05:12 05:12 05:12 WBC 7.7 RBC 4.60 Hgb 12.8 Hct 38.7 D MCV 84.2 MCH 27.9 MCHC 33.1 RDW 19.1 H Plt Count 179 MPV 8.8 Absolute Neuts (auto) 5.9 Neutrophils % 76.6 Lymphocytes % 13.8 D Monocytes % 7.9 Eosinophils % 0.7 D Basophils % 1.0 Nucleated RBC % 0 PT with INR INR PTT (Actin FS) Sodium 132 L Potassium 4.4 Chloride 96 L Carbon Dioxide 26 Anion Gap 10 BUN 29.6 H Creatinine 6.4 H Est GFR (CKD-EPI)AfAm 11.20 Est GFR (CKD-EPI)NonAf 9.66 Random Glucose 89 Calcium 8.4 L Phosphorus Magnesium 2.3 Total Bilirubin 1.1 H Direct Bilirubin AST 175 H ALT 278 H Alkaline Phosphatase 163 H Creatine Kinase 122 Troponin I 0.04 B-Natriuretic Peptide > 97840.0 H Total Protein 7.7 Albumin 3.8 Lipase 04/24/19 04/24/19 04/24/19 05:12 12:05 12:05 WBC RBC Hgb Hct MCV MCH MCHC RDW Plt Count MPV Absolute Neuts (auto) Neutrophils % Lymphocytes % Monocytes % Eosinophils % Basophils % Nucleated RBC % PT with INR 18.40 H INR 1.55 H PTT (Actin FS) 39.0 H Sodium Potassium Chloride Carbon Dioxide Anion Gap BUN Creatinine Est GFR (CKD-EPI)AfAm Est GFR (CKD-EPI)NonAf Random Glucose Calcium Phosphorus 3.8 Magnesium Total Bilirubin 1.2 H Direct Bilirubin 0.5 H AST 338 H ALT 488 H Alkaline Phosphatase 157 H Creatine Kinase Troponin I 0.05 B-Natriuretic Peptide Total Protein 7.7 Albumin 3.8 Lipase 173 Current Medications Generic Name Dose Route Start Last Admin Trade Name Freq PRN Reason Stop Dose Admin Aspirin 81 mg 04/25/19 10:00 Asa - PO DAILY [facility] Cinacalcet 30 mg 04/25/19 10:00 Sensipar - PO DAILY [facility] Docusate Sodium 100 mg 04/24/19 14:22 Colace - PO Q12H PRN CONSTIPATION Heparin Sodium (Porcine) 5,000 unit 04/24/19 22:00 Heparin - SQ TID [facility] Losartan Potassium 100 mg 04/25/19 10:00 Losartan Potassium PO DAILY [facility] Metoprolol Succinate 25 mg 04/25/19 10:00 Toprol Xl - PO DAILY ES Prednisone 7.5 mg 04/25/19 10:00 Deltasone - PO DAILY ES Senna 1 tab 04/24/19 22:00 Senna - PO HS ES A/P: 43 y.o. M w/ PMHx. of PCKD (ESRD:T, , ; last received HD yesterday- removed 1 kg, usually 1.3-1.5), CAD (s/p -2017 and SOURAV placement), HTN, Diastolic and Systolic CHF, and Gout presents for abdominal pain that has been present for the last week. Abdominal Pain ?passed stone, Abd US not showing acute cholecystitis, CBD unremarkable, lipase unremarkable Abd. US: shows thickened gall bladder wall without signs for cholecyctitis or cholelithiasis LFTs trending up, send hemolysis workup, EBV blood test, obtain MRCP to rule out biliary pathology, hold statin and all hepatotoxic agents ESRD Consult ot Nephrology appreciated HD TTHSa No signs of fluid overlaod currently, no signs of uremic sx HTN Shortness of Breath 2/2 mixed CHF Echo (03/31/19): EF 20%, mild concentric LVH, mod. TR, impaired relaxation c/w Metoprolol 25 mg Daily Given 40mg IV Lasix to good response. Pt. states his breathing has improved significantly , cont. Lasix 40mg IV in AM Gout c/w Prednisone 7.5mg Daily, ?for acute flare not sure why he's taking it daily f/u Rheumatology consults for Daily Prednisone for Gout, Pt. is not currently on Allopurinol Obtain uric acid levels, no signs of acute flare FEN no IVF, NPO for MRCP monitor electrolytes and replete as needed DVT Ppx. Hep SQ
--- NOTE | 2019-04-24 15:21 | CON.CARD ---
Cardiology Consult (text) - Consultation Consultation Note: cc: abd pain, short of breath hpi: 43 m hx pckd with esrd on hd, htn, CAD, NSTEMI s/p SOURAV x 2 to LCx, syst chf p/w abd pain and shortness of breath. Recent admit for new syst chf, [facility] by chf and recently discharged home. [place] well until past 2 days when noticed sharp pain in ruq with accompanied sob. No cp palps dizzy loc pnd le edema. Sees me for cardio. pmh: per hpi psh: avf social: no tob fam: mom and dad mi's in 40s ros: per hpi; all others nl meds: Home Medications Medication Instructions Recorded ASA - 81 mg PO DAILY 03/31/18 Lipitor 80 mg PO HS 03/31/18 Losartan Potassium 100 mg PO DAILY 03/31/18 Cinacalcet HCl [Sensipar -] 30 mg PO DAILY 04/24/19 Metoprolol Succinate [Toprol Xl] 25 mg PO DAILY 04/24/19 predniSONE [Deltasone -] 7.5 mg PO DAILY 04/24/19 pe: Vital Signs Period Temp Pulse Resp BP Sys/Hilario Pulse Ox Last 24 Hr 97.6 F-98.1 F 84-89 20-26 123-130/80-89 97-99 nad no jvd rrr s1s2 no mrg RUE fistula +thrill cta bl nl eff aaox3 no le e/c/c abd nt nd pos bs no jaundice diaphoresis pos dp pt no carotid bruits Laboratory Last Values WBC 7.7 K/mm3 (4.0-10.0) 04/24/19 05:12 RBC 4.60 M/mm3 (4.00-5.60) 04/24/19 05:12 Hgb 12.8 GM/dL (11.7-16.9) 04/24/19 05:12 Hct 38.7 % (35.4-49) D 04/24/19 05:12 MCV 84.2 fl (80-96) 04/24/19 05:12 MCH 27.9 pg (25.7-33.7) 04/24/19 05:12 MCHC 33.1 g/dl (32.0-35.9) 04/24/19 05:12 RDW 19.1 % (11.9-15.9) H 04/24/19 05:12 Plt Count 179 K/MM3 (134-434) 04/24/19 05:12 MPV 8.8 fl (7.5-11.1) 04/24/19 05:12 Absolute Neuts (auto) 5.9 K/mm3 (1.5-8.0) 04/24/19 05:12 Neutrophils % 76.6 % (42.8-82.8) 04/24/19 05:12 Lymphocytes % 13.8 % (8-40) D 04/24/19 05:12 Monocytes % 7.9 % (3.8-10.2) 04/24/19 05:12 Eosinophils % 0.7 % (0-4.5) D 04/24/19 05:12 Basophils % 1.0 % (0-2.0) 04/24/19 05:12 Nucleated RBC % 0 % (0-0) 04/24/19 05:12 PT with INR 18.40 SEC (9.7-13.0) H 04/24/19 05:12 INR 1.55 (0.83-1.09) H 04/24/19 05:12 PTT (Actin FS) 39.0 SECONDS (25.2-36.5) H 04/24/19 05:12 Sodium 132 mmol/L (136-145) L 04/24/19 05:12 Potassium 4.4 mmol/L (3.5-5.1) 04/24/19 05:12 Chloride 96 mmol/L (98-107) L 04/24/19 05:12 Carbon Dioxide 26 mmol/L (21-32) 04/24/19 05:12 Anion Gap 10 MMOL/L (8-16) 04/24/19 05:12 BUN 29.6 mg/dL (7-18) H 04/24/19 05:12 Creatinine 6.4 mg/dL (0.55-1.3) H 04/24/19 05:12 Est GFR (CKD-EPI)AfAm 11.20 04/24/19 05:12 Est GFR (CKD-EPI)NonAf 9.66 04/24/19 05:12 Random Glucose 89 mg/dL (74-106) 04/24/19 05:12 Calcium 8.4 mg/dL (8.5-10.1) L 04/24/19 05:12 Phosphorus 3.8 mg/dL (2.5-4.9) 04/24/19 12:05 Magnesium 2.3 mg/dL (1.8-2.4) 04/24/19 05:12 Total Bilirubin 1.2 mg/dL (0.2-1) H 04/24/19 12:05 Direct Bilirubin 0.5 mg/dL (0.0-0.2) H 04/24/19 12:05 AST 338 U/L (15-37) H 04/24/19 12:05 ALT 488 U/L (13-61) H 04/24/19 12:05 Alkaline Phosphatase 157 U/L (45-117) H 04/24/19 12:05 Creatine Kinase 122 U/L (26-308) 04/24/19 05:12 Troponin I 0.05 ng/ml (0.00-0.05) 04/24/19 12:05 B-Natriuretic Peptide > 83761.0 pg/ml (5-125) H 04/24/19 05:12 Total Protein 7.7 g/dl (6.4-8.2) 04/24/19 12:05 Albumin 3.8 g/dl (3.4-5.0) 04/24/19 12:05 Lipase 173 U/L (73-393) 04/24/19 12:05 echo 10/2018 MSH normal left ventricular size overall normal left ventricular systolic function (segmental); ejection fraction = 55 % decreased left ventricular compliance normal right ventricular size normal right ventricular function no evidence for aortic regurgitation minimal mitral regurgitation mild tricuspid regurgitation no evidence for pulmonary hypertension minimal pulmonic regurgitation moderate to severe left atrial dilatation normal right atrial size no evidence for pericardial effusion cath 10/2017 1 vessel CAD s/p SOURAV x 2 to LCx echo 03/2019 mild conc LVH, severely reduced LV function EF 20%, impaired relaxation, mild MR, mod TR cxr: clear lungs ecg: sinus, no ischemic changes, no sig change priors a/p: 43 m hx pckd with esrd on hd, htn, CAD, NSTEMI s/p SOURAV x 2 to LCx, syst chf p/w abd pain and shortness of breath. acute on chronic syst chf: -recently found sys chf, [facility], thought to be myocarditis vs ideopathic -cont toprol 25 bid, losartan 100 qd -pt with mild sob/orthopnea symptoms. cxr clear and no sig le edema but likely has some mild vol overload. Would consult renal for vol management with HD, may need more vol taken off during sessions. abd pain, elevated lfts: -possibly from chf but does not appear that vol overloaded -GI consulted -trend lfts CAD: - NSTEMI 10/2017 s/p SOURAV x 2 to LCX - had repeat cath 03/2019 for eval of newly reduced lvef, cath showed mild non obs dz and patent stents - no signs acs here - cont home aspirin, bb, arb - hold statin 2/2 elevated lfts for now esrd: -hd per renal htn: -cont home meds
[2019-04-24 16:01] VITALS: BMI 23.8
--- NOTE | 2019-04-24 16:19 | CON.GI ---
Consult Consult Specialty:: GI Referred by:: [facility] Reason for Consultation:: Abnormal liver chemistries - History of Present Illness Chief Complaint: Abdominal pain, shortness of breath History of Present Illness: 43M admitted through [facility] ER for evaluation of abdominal pain and SOB. States that he was in his USOH up until last night, when he began experiencing RUQ pain. The pain was waxing and waning then became persistent and was associated with an episode of vomiting and became SOB. Denies fevers/chills. In the ER triage revealed T: 98.2 P: 96 BP: 137/97. He was noted to have normal WBC. Liver chemistries were elevated including transaminases, ALP and bilirubin. In review of [facility], these were normal 04/06. Pain continues. shortness of breath improved. Abdominal US revealed a thickened GB wall without cholelithiasis or dilated biliary tract. Abd US from 11/02 revealed fatty liver and normal appearing gallbladder. CTA from - History Source History Provided By: Patient, Medical Record - Past Medical History Cardio/Vascular: Yes: CAD, [place] (With resultant EF of 20%) Renal/: Yes: Renal Failure (ESRD on HD), Other (PCKD) - Past Surgical History Additional Surgical History: Right arm AV-Fistula, cardiac stent x 3 - Alcohol/Substance Use Hx Alcohol Use: No History of Substance Use: reports: None - Smoking History Smoking history: Never smoked Have you smoked in the past 12 months: No - Social History Usual Living Arrangement: With Spouse ADL: Independent Place of : [facility] History of Recent Travel: No Home Medications - Allergies Allergies/Adverse Reactions: Allergies Allergy/AdvReac Type Severity Reaction Status Date / Time No Known Allergies Allergy Verified 04/24/19 04:28 - Home Medications Home Medications: Ambulatory Orders ASA - 81 mg PO DAILY 03/31/18 Lipitor 80 mg PO HS 03/31/18 Losartan Potassium 100 mg PO DAILY 03/31/18 Cinacalcet HCl [Sensipar -] 30 mg PO DAILY 04/24/19 Metoprolol Succinate [Toprol Xl] 25 mg PO DAILY 04/24/19 Sevelamer Carbonate 800 mg PO TID 04/24/19 predniSONE [Deltasone -] 2.5 mg PO DAILY 04/24/19 Family Medical History Other Family History: Father: : 42: unclear causes. Mother: : 47: [place], had PCKD. 1 brother, 1 sister: sister w/ PCKD. 2 daughters: healthy. No family history of colorectal cancer, liver disease Review of Systems - Review of Systems Constitutional: denies: Chills Cardiovascular: reports: Palpitations. denies: Chest Pain, Edema Respiratory: reports: SOB Gastrointestinal: reports: Abdominal Pain, Vomiting. denies: Melena Physical Exam-GI Vital Signs: Vital Signs Temperature 98.6 F 04/24/19 15:56 Pulse Rate 81 04/24/19 15:56 Respiratory Rate 18 04/24/19 15:56 Blood Pressure 130/95 04/24/19 15:56 O2 Sat by Pulse Oximetry (%) 99 04/24/19 15:00 Constitutional: Yes: Calm Eyes: No: Sclera Icterus Cardiovascular: Yes: Regular Rate and Rhythm Respiratory: Yes: CTA Bilaterally Gastrointestinal Inspection: No: Distention, Scars ...Auscultate: Yes: Normoactive Bowel Sounds ...Palpate: Yes: Soft, Tenderness (TTP diffusely). No: Guarding, Tenderness, Rebound ...Percussion: No: Tympanitic Edema: No (No LE edema) Neurological: Yes: Alert Labs: CBC, BMP 04/24/19 05:12 04/24/19 05:12 INR, PTT INR 1.55 (0.83-1.09) H 04/24/19 05:12 Hepatic Panel Total Bilirubin 1.2 mg/dL (0.2-1) H 04/24/19 12:05 Direct Bilirubin 0.5 mg/dL (0.0-0.2) H 04/24/19 12:05 AST 338 U/L (15-37) H 04/24/19 12:05 ALT 488 U/L (13-61) H 04/24/19 12:05 Alkaline Phosphatase 157 U/L (45-117) H 04/24/19 12:05 Albumin 3.8 g/dl (3.4-5.0) 04/24/19 12:05 Imaging - Results Ultrasound: Report Reviewed Problem List - Problems (1) Abnormal liver function tests Assessment/Plan: while acute cardiac dysfunction can lead to abnormal liver chemistries via congestive hepatopathy or ischemic hepatopathy, Mr. Carlin does not clinically appear to be in an acute CHF exacerbation or in right sided heart failure. alternate etiologies such as gallbladder disease, passed or retained CBD stone would need to be considered. I explained this to Mr. Carlin. an MRCP is pending. Can await result however in the interim should cover with antibiotics for biliary coverage and obtain surgical consult. Consideration should be made to transfer to a tertiary care center if any interventions are required given his poor cardiac function. My concerns were discussed with Dr. Cardozo and he was in agreement with my concerns this concern was communicated to the hospitalist caring for Mr. Carlin. Advise: Monitor LFTs Avoid hepatotoxic agents Surgical evaluation Will need to have MRCP read NPO except meds IV abx Dr. Lester is covering tonight through the weekend Code(s): R94.5 - ABNORMAL RESULTS OF LIVER FUNCTION STUDIES
--- NOTE | 2019-04-24 20:14 | CONSULT ---
Consult Consult Specialty:: Nephrology Reason for Consultation:: ESRD - History of Present Illness Chief Complaint: abdominal pain History of Present Illness: Pt is a 43 year old male with pmhx of esrd, pkd, cad, htn, chf, and gout who presents to the ER with abdominal pain and heartburn. He has had these symptoms for the last 4 days. I was called to evaluate him as he is on HD. His last HD session was yesterday. He denies lower ext edema. He denies shortness of breath on exertion. He has had a few episodes of vomiting. He denies fevers or chills. - History Source History Provided By: Patient, Medical Record - Past Medical History Cardio/Vascular: Yes: CAD, [place] (With resultant EF of 20%) Renal/: Yes: Renal Failure (ESRD on HD), Hemodialysis, Other (PCKD) - Past Surgical History Additional Surgical History: Right arm AV-Fistula, cardiac stent x 3 - Alcohol/Substance Use Hx Alcohol Use: No History of Substance Use: reports: None - Smoking History Smoking history: Never smoked Have you smoked in the past 12 months: No - Social History Usual Living Arrangement: With Spouse ADL: Independent History of Recent Travel: No Home Medications - Allergies Allergies/Adverse Reactions: Allergies Allergy/AdvReac Type Severity Reaction Status Date / Time No Known Allergies Allergy Verified 04/24/19 04:28 - Home Medications Home Medications: Ambulatory Orders ASA - 81 mg PO DAILY 03/31/18 Lipitor 80 mg PO HS 03/31/18 Losartan Potassium 100 mg PO DAILY 03/31/18 Cinacalcet HCl [Sensipar -] 30 mg PO DAILY 04/24/19 Metoprolol Succinate [Toprol Xl] 25 mg PO DAILY 04/24/19 Sevelamer Carbonate 800 mg PO TID 04/24/19 predniSONE [Deltasone -] 2.5 mg PO DAILY 04/24/19 Family Medical History Family History: Denies Review of Systems - Review of Systems Constitutional: reports: Malaise Eyes: reports: No Symptoms HENT: reports: No Symptoms Neck: reports: No Symptoms Cardiovascular: reports: No Symptoms Respiratory: reports: No Symptoms Gastrointestinal: reports: Abdominal Pain, Indigestion Genitourinary: reports: No Symptoms Musculoskeletal: reports: No Symptoms Integumentary: reports: No Symptoms Neurological: reports: No Symptoms Endocrine: reports: No Symptoms Hematology/Lymphatic: reports: No Symptoms Psychiatric: reports: No Symptoms Physical Exam Vital Signs: Vital Signs Temperature 98.6 F 04/24/19 15:56 Pulse Rate 81 04/24/19 15:56 Respiratory Rate 18 04/24/19 15:56 Blood Pressure 130/95 04/24/19 15:56 O2 Sat by Pulse Oximetry (%) 99 04/24/19 15:00 Constitutional: Yes: Calm Eyes: Yes: Conjunctiva Clear HENT: Yes: Atraumatic Neck: Yes: Supple Cardiovascular: Yes: S1, S2 Respiratory: Yes: CTA Bilaterally Gastrointestinal: Yes: Normal Bowel Sounds, Soft Renal/: Yes: WNL Musculoskeletal: Yes: WNL Edema: No Neurological: Yes: Oriented Psychiatric: Yes: Oriented Labs: CBC, BMP 04/24/19 05:12 04/24/19 05:12 Imaging - Results Chest X-ray: Report Reviewed Ultrasound: Report Reviewed Problem List - Problems (1) ESRD (end stage renal disease) Code(s): N18.6 - END STAGE RENAL DISEASE Assessment/Plan Current Medications Generic Name Dose Route Start Last Admin Trade Name Freq PRN Reason Stop Dose Admin Aspirin 81 mg 04/25/19 10:00 Asa - PO DAILY ES Cinacalcet 30 mg 04/25/19 10:00 Sensipar - PO DAILY ES Docusate Sodium 100 mg 04/24/19 14:22 Colace - PO Q12H PRN CONSTIPATION Heparin Sodium (Porcine) 5,000 unit 04/24/19 22:00 Heparin - SQ TID ES Losartan Potassium 100 mg 04/25/19 10:00 Losartan Potassium PO DAILY ES Metoprolol Succinate 25 mg 04/25/19 10:00 Toprol Xl - PO DAILY ES Prednisone 7.5 mg 04/25/19 10:00 Deltasone - PO DAILY ES Senna 1 tab 04/24/19 22:00 Senna - PO HS ES Impression 1. ESRD 2. HTN 3. abdominal librado 4. PKD 5. chf 6. anemia Plan - HD tomorrow - GI workup - repeat labs in am - renal diet once eating - called HD for prescription - 3:45 opti 180 abf 400, 2k bath, heparin 3000, mercera 75 every 4 weeks
[2019-04-24] MEDS ORDERED: SODIUM CHLORIDE 250 ML IV PRN (20:17)
[2019-04-24] MEDS ORDERED: ATORVASTATIN CA 80 MG TABLET (FP) PO SCH (22:00)
[2019-04-24] MEDS: SENNOSIDES 8.6MG TABLET (FP) PO SCH (22:02)
[2019-04-24] MEDS: HEPARIN NA (PORCINE) 5,000 UNITS/ML 1ML VIAL SQ SCH (22:02)
[2019-04-25] MEDS ORDERED: TRIMETHOBENZAMIDE HCL 300 MG CAPSULE PO ONE (02:00)
[2019-04-25] MEDS: HEPARIN NA (PORCINE) 5,000 UNITS/ML 1ML VIAL SQ SCH ×3 (05:39→21:55)
[2019-04-25 06:31] LABS: BASO % 1.4 % (0-2.0); EOS % 0.4 % (0-4.5); HEMATOCRIT 39.1 % (35.4-49); HEMOGLOBIN 12.7 GM/dL (11.7-16.9); LYMPH % 19.2 % (8-40); MCH 27.4 pg (25.7-33.7); MCHC 32.5 g/dl (32.0-35.9); MEAN CELL VOLUME 84.6 fl (80-96); MEAN PLT VOLUME 8.5 fl (7.5-11.1); MONO % 8.9 % (3.8-10.2); NEUT % 70.1 % (42.8-82.8); PLATELET COUNT 157 K/MM3 (134-434); RBC 4.62 M/mm3 (4.00-5.60); RDW 19.9 % (11.9-15.9); WHITE BLOOD COUNT 7.2 K/mm3 (4.0-10.0)
[2019-04-25 06:45] LABS: INR 1.86 (0.83-1.09); PROTHROMBIN TIME (PATIENT) 22.1 SEC (9.7-13.0)
[2019-04-25] MEDS: HEPARIN NA (PORCINE) 5,000 UNITS/ML 1ML VIAL IVPUSH ONE ×2 (07:00→21:54)
[2019-04-25 07:13] LABS: ALBUMIN 3.6 g/dl (3.4-5.0); BILIRUBIN,TOTAL 1.4 mg/dL (0.2-1); BLOOD UREA NITROGEN 49.7 mg/dL (7-18); CALCIUM 7.9 mg/dL (8.5-10.1); MAGNESIUM 2.9 mg/dL (1.8-2.4); PHOSPHOROUS 4.7 mg/dL (2.5-4.9); POTASSIUM 4.9 mmol/L (3.5-5.1); TOT PROT 7.3 g/dl (6.4-8.2)
[2019-04-25 07:15] LABS: CREATININE 8.5 mg/dL (0.55-1.3)
--- NOTE | 2019-04-25 08:05 | PN ---
Progress Note, Physician History of Present Illness: No CV events overnight Feels improved from dyspnea perspective On HD this AM - Current Medication List Current Medications: Active Medications Aspirin (Asa -) 81 mg PO DAILY [facility] Cinacalcet (Sensipar -) 30 mg PO DAILY [facility] Docusate Sodium (Colace -) 100 mg PO Q12H PRN PRN Reason: CONSTIPATION Heparin Sodium (Porcine) (Heparin -) 5,000 unit SQ TID [facility] Last Admin: 04/25/19 05:39 Dose: 5,000 unit Heparin Sodium (Porcine) (Heparin -) 3,000 unit IVPUSH ONCE ONE Stop: 04/25/19 20:18 Sodium Chloride (Normal Saline -) 250 mls @ 3,000 mls/hr IV PRN PRN PRN Reason: Hypotension during Dialysis Stop: 04/25/19 20:17 Losartan Potassium (Cozaar -) 100 mg PO DAILY [facility] Metoprolol Succinate (Toprol Xl -) 25 mg PO DAILY [facility] Prednisone (Deltasone -) 7.5 mg PO DAILY [facility] Senna (Senna -) 1 tab PO HS [facility] Last Admin: 04/24/19 22:02 Dose: 1 tab - Objective Vital Signs: Vital Signs Temperature 97.5 F L 04/25/19 06:55 Pulse Rate 83 04/25/19 07:30 Respiratory Rate 18 04/25/19 07:30 Blood Pressure 137/86 04/25/19 07:30 O2 Sat by Pulse Oximetry (%) 96 04/24/19 21:00 Constitutional: Yes: No Distress Eyes: Yes: WNL Cardiovascular: Yes: Regular Rate and Rhythm Respiratory: Yes: CTA Bilaterally Edema: No Labs: CBC, BMP 04/25/19 06:05 04/25/19 06:05 INR, PTT INR 1.86 (0.83-1.09) H 04/25/19 06:05 Assessment/Plan a/p: 43 m hx pckd with esrd on hd, htn, CAD, NSTEMI s/p SOURAV x 2 to LCx, syst chf p/w abd pain and shortness of breath. acute on chronic syst chf: -recently found sys chf, was evaluated and treated by [facility] chf team, thought to be myocarditis vs ideopathic -cont toprol 25 bid, losartan 100 qd -pt with mild sob/orthopnea symptoms. cxr clear and no sig le edema but likely has some mild vol overload. -HD this AM with goal of more free water removal abd pain, elevated lfts: -possibly from chf but does not appear that vol overloaded -GI consulted -continue to trend lfts CAD: - NSTEMI 10/2017 s/p SOURAV x 2 to LCX - had repeat cath 03/2019 for eval of newly reduced lvef, cath showed mild non obs dz and patent stents - no signs acs here - cont home aspirin, bb, arb - hold statin 2/2 elevated lfts for now
[2019-04-25] MEDS ORDERED: predniSONE 5 MG/5 ML ORAL SOLN- UNIT-DOSE CUP PO SCH (10:00)
[2019-04-25] MEDS ORDERED: CINACALCET HCL 30 MG TAB (FP) PO SCH (10:00)
[2019-04-25] MEDS ORDERED: predniSONE 2.5 MG TABLET PO SCH (10:30)
--- NOTE | 2019-04-25 11:04 | PN.GI ---
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 He was previously on high dose lipitor and on Cinacalcet. MRCP normal CBD, no abdominal pain and fever, tolerated a sandwich last night. Now very hungry aftrer dialysis. - Objective Vital Signs: Vital Signs Temperature 97.5 F L 04/25/19 06:55 Pulse Rate 79 04/25/19 10:00 Respiratory Rate 18 04/25/19 10:00 Blood Pressure 126/82 04/25/19 10:00 O2 Sat by Pulse Oximetry (%) 96 04/24/19 21:00 Constitutional: Well Nourished Eyes: Yes: Conjunctiva Clear HENT: Yes: Atraumatic Neck: Yes: Supple Cardiovascular: Yes: Regular Rate and Rhythm Respiratory: Yes: CTA Bilaterally ...Palpate: Yes: Soft. No: Firm/Rigid, Guarding, Hepatomegaly, Mass, Pulsatile Mass, Splenomegaly Labs: CBC, BMP 04/25/19 06:05 04/25/19 06:05 INR, PTT INR 1.86 (0.83-1.09) H 04/25/19 06:05 Hepatic Panel Total Bilirubin 1.4 mg/dL (0.2-1) H 04/25/19 06:05 Direct Bilirubin 0.5 mg/dL (0.0-0.2) H 04/24/19 12:05 AST 341 U/L (15-37) H 04/25/19 06:05 ALT 664 U/L (13-61) H 04/25/19 06:05 Alkaline Phosphatase 152 U/L (45-117) H 04/25/19 06:05 Albumin 3.6 g/dl (3.4-5.0) 04/25/19 06:05 Problem List - Problems (1) Hepatocellular injury Assessment/Plan: in the absence of CBD dilation , most likely secondary to drug hepatoxicity R>d/c Cinacalcet repeat in LFT in 48 hours advance diet Code(s): K76.9 - LIVER DISEASE, UNSPECIFIED
[2019-04-25] MEDS: metoPROLOL SUCCINATE 25 MG TAB.SR.24H (FP) PO SCH (11:41)
[2019-04-25] MEDS: ASPIRIN 81 MG CHEWABLE TABLETS PO SCH (11:41)
[2019-04-25] MEDS: LOSARTAN POTASSIUM 50 MG TABLET (FP) PO SCH (11:42)
[2019-04-25] MEDS: predniSONE 5 MG TABLET (UD) PO SCH (12:34)
[2019-04-25] MEDS: PANTOPRAZOLE 40 MG TABLET PO SCH (12:57)
--- NOTE | 2019-04-25 13:47 | PN ---
Physical Exam: SUBJECTIVE: Patient seen and examined. He has no complaints. He denies abdominal pain, nausea, SOB. OBJECTIVE: Vital Signs Period Temp Pulse Resp BP Sys/Hilario Pulse Ox Last 24 Hr 97.3 F-98.6 F 79-94 18-22 123-137/79-100 96-99 GENERAL: The patient is awake, alert, and fully oriented, in no acute distress. LUNGS: Breath sounds equal, clear to auscultation bilaterally, no wheezes, no crackles, no accessory muscle use. HEART: Regular rate and rhythm, S1, S2 without murmur, rub or gallop. ABDOMEN: Soft, nontender, nondistended, normoactive bowel sounds, no guarding, no rebound, no hepatosplenomegaly, no masses. EXTREMITIES: 2+ pulses, warm, well-perfused, no edema. Laboratory Results - last 24 hr 04/24/19 04/24/19 04/24/19 15:00 15:10 16:45 WBC RBC Hgb Hct MCV MCH MCHC RDW Plt Count MPV Absolute Neuts (auto) Neutrophils % Lymphocytes % Monocytes % Eosinophils % Basophils % Nucleated RBC % PT with INR INR Sodium Potassium Chloride Carbon Dioxide Anion Gap BUN Creatinine Est GFR (CKD-EPI)AfAm Est GFR (CKD-EPI)NonAf Random Glucose Uric Acid 5.0 Calcium Phosphorus Magnesium Total Bilirubin AST ALT Alkaline Phosphatase LD Total 569 H Troponin I 0.05 Total Protein Albumin Influenza A (Rapid) Negative Influenza B (Rapid) Negative RSV Rapid Negative 04/25/19 04/25/19 04/25/19 06:05 06:05 06:05 WBC 7.2 RBC 4.62 Hgb 12.7 Hct 39.1 MCV 84.6 MCH 27.4 MCHC 32.5 RDW 19.9 H Plt Count 157 MPV 8.5 Absolute Neuts (auto) 5.1 Neutrophils % 70.1 Lymphocytes % 19.2 D Monocytes % 8.9 Eosinophils % 0.4 Basophils % 1.4 Nucleated RBC % 0 PT with INR 22.10 H INR 1.86 H Sodium 133 L Potassium 4.9 Chloride 97 L Carbon Dioxide 23 Anion Gap 13 BUN 49.7 H Creatinine 8.5 H* Est GFR (CKD-EPI)AfAm 7.94 Est GFR (CKD-EPI)NonAf 6.85 Random Glucose 84 Uric Acid Calcium 7.9 L Phosphorus 4.7 Magnesium 2.9 H Total Bilirubin 1.4 H AST 341 H ALT 664 H Alkaline Phosphatase 152 H LD Total Troponin I Total Protein 7.3 Albumin 3.6 Influenza A (Rapid) Influenza B (Rapid) RSV Rapid Active Medications Generic Name Dose Route Start Last Admin Trade Name Freq PRN Reason Stop Dose Admin Aspirin 81 mg 04/25/19 10:00 04/25/19 11:41 Asa - PO 81 mg DAILY ES Administration Cinacalcet 30 mg 04/25/19 10:00 04/25/19 11:41 Sensipar - PO 30 mg DAILY ES Administration Docusate Sodium 100 mg 04/24/19 14:22 Colace - PO Q12H PRN CONSTIPATION Heparin Sodium (Porcine) 5,000 unit 04/24/19 22:00 04/25/19 05:39 Heparin - SQ 5,000 unit TID ES Administration Heparin Sodium (Porcine) 3,000 unit 04/25/19 20:17 04/25/19 07:00 Heparin - IVPUSH 04/25/19 20:18 3,000 unit ONCE ONE Administration Sodium Chloride 250 mls @ 3,000 mls/hr 04/24/19 20:17 Normal Saline - IV 04/25/19 20:17 PRN PRN Hypotension during Dialysis Losartan Potassium 100 mg 04/25/19 10:00 04/25/19 11:42 Cozaar - PO 100 mg DAILY ES Administration Metoclopramide HCl 5 mg 04/25/19 16:30 Reglan - PO TIDAC ES Metoprolol Succinate 25 mg 04/25/19 10:00 04/25/19 11:41 Toprol Xl - PO 25 mg DAILY ES Administration Pantoprazole Sodium 40 mg 04/25/19 12:45 Protonix - PO DAILY ES Prednisone 2.5 mg 04/25/19 11:45 04/25/19 12:34 Deltasone - PO 2.5 mg DAILY ES Administration Senna 1 tab 04/24/19 22:00 04/24/19 22:02 Senna - PO 1 tab HS ES Administration ASSESSMENT/PLAN: This is a 43 year old man with a history of ESRD, polycystic kidney disease, CAD , MT, cardiac stent, HTN, chronic systolic and diastolic heart failure, gout who presented to the ED with abdominal pain. 1. Abdominal pain with hepatic transaminitis, elevated alk phos, elevated LD, hyperbilirubinemia - US shows trace ascites, gallbladder wall thickening, polycystic kidneys - MRCP shows normal biliary and pancreatic ducts, normal pancreas, gallbladder wall thickening, polycystic kidneys - Lipitor held - GI recommends holding Sensipar and monitoring LFTs - Check hepatitis panel 2. ESRD secondary to polycystic kidney disease - Continue HD as per nephrology 3. CAD, history of MT and stent placement - Continue aspirin, Toprol XL - Lipitor held secondary to transaminitis 4. HTN - Continue Cozaar, Toprol XL 5. Acute on chronic systolic and diastolic heart failure - Improved - Continue Cozaar, Toprol XL - Fluid management with HD 6. History of gout - Continue prednisone Visit type - Emergency Visit Emergency Visit: Yes ED Registration Date: 04/24/19 Care time: The patient presented to the Emergency Department on the above date and was hospitalized for further evaluation of their emergent condition. - New Patient This patient is new to me today: Yes Date on this admission: 04/25/19 - Critical Care Critical Care patient: No - Discharge Referral Referred to [facility] Med P.C.: No
[2019-04-25] MEDS: METOCLOPRAMIDE HCL 10 MG TABLET (FP) PO SCH (16:57)
--- NOTE | 2019-04-25 17:48 | PN ---
Progress Note, Physician History of Present Illness: Pt seen and examined at bedside. He is awake and alert. he tolerated HD today. He feels that his breathing is improved. - Current Medication List Current Medications: Active Medications Aspirin (Asa -) 81 mg PO DAILY [facility] Last Admin: 04/25/19 11:41 Dose: 81 mg Docusate Sodium (Colace -) 100 mg PO Q12H PRN PRN Reason: CONSTIPATION Heparin Sodium (Porcine) (Heparin -) 5,000 unit SQ TID [facility] Last Admin: 04/25/19 13:57 Dose: 5,000 unit Heparin Sodium (Porcine) (Heparin -) 3,000 unit IVPUSH ONCE ONE Stop: 04/25/19 20:18 Last Admin: 04/25/19 07:00 Dose: 3,000 unit Sodium Chloride (Normal Saline -) 250 mls @ 3,000 mls/hr IV PRN PRN PRN Reason: Hypotension during Dialysis Stop: 04/25/19 20:17 Losartan Potassium (Cozaar -) 100 mg PO DAILY [facility] Last Admin: 04/25/19 11:42 Dose: 100 mg Metoclopramide HCl (Reglan -) 5 mg PO TIDAC [facility] Last Admin: 04/25/19 16:57 Dose: 5 mg Metoprolol Succinate (Toprol Xl -) 25 mg PO DAILY [facility] Last Admin: 04/25/19 11:41 Dose: 25 mg Pantoprazole Sodium (Protonix -) 40 mg PO DAILY [facility] Last Admin: 04/25/19 12:57 Dose: 40 mg Prednisone (Deltasone -) 2.5 mg PO DAILY [facility] Last Admin: 04/25/19 12:34 Dose: 2.5 mg Senna (Senna -) 1 tab PO HS [facility] Last Admin: 04/24/19 22:02 Dose: 1 tab - Objective Vital Signs: Vital Signs Temperature 98 F 04/25/19 14:04 Pulse Rate 96 H 04/25/19 14:04 Respiratory Rate 18 04/25/19 14:04 Blood Pressure 114/87 04/25/19 14:04 O2 Sat by Pulse Oximetry (%) 97 04/25/19 09:00 Constitutional: Yes: Calm Eyes: Yes: Conjunctiva Clear HENT: Yes: Atraumatic Neck: Yes: Supple Cardiovascular: Yes: S1, S2 Respiratory: Yes: CTA Bilaterally Gastrointestinal: Yes: Normal Bowel Sounds, Soft Genitourinary: Yes: WNL Musculoskeletal: Yes: WNL Edema: No Neurological: Yes: Oriented Psychiatric: Yes: Oriented Labs: CBC, BMP 04/25/19 06:05 04/25/19 06:05 INR, PTT INR 1.86 (0.83-1.09) H 04/25/19 06:05 Problem List - Problems (1) ESRD (end stage renal disease) Code(s): N18.6 - END STAGE RENAL DISEASE Assessment/Plan Current Medications Generic Name Dose Route Start Last Admin Trade Name Freq PRN Reason Stop Dose Admin Aspirin 81 mg 04/25/19 10:00 04/25/19 11:41 Asa - PO 81 mg DAILY ES Administration Docusate Sodium 100 mg 04/24/19 14:22 Colace - PO Q12H PRN CONSTIPATION Heparin Sodium (Porcine) 5,000 unit 04/24/19 22:00 04/25/19 13:57 Heparin - SQ 5,000 unit TID ES Administration Heparin Sodium (Porcine) 3,000 unit 04/25/19 20:17 04/25/19 07:00 Heparin - IVPUSH 04/25/19 20:18 3,000 unit ONCE ONE Administration Sodium Chloride 250 mls @ 3,000 mls/hr 04/24/19 20:17 Normal Saline - IV 04/25/19 20:17 PRN PRN Hypotension during Dialysis Losartan Potassium 100 mg 04/25/19 10:00 04/25/19 11:42 Cozaar - PO 100 mg DAILY ES Administration Metoclopramide HCl 5 mg 04/25/19 16:30 04/25/19 16:57 Reglan - PO 5 mg TIDAC ES Administration Metoprolol Succinate 25 mg 04/25/19 10:00 04/25/19 11:41 Toprol Xl - PO 25 mg DAILY ES Administration Pantoprazole Sodium 40 mg 04/25/19 12:45 04/25/19 12:57 Protonix - PO 40 mg DAILY ES Administration Prednisone 2.5 mg 04/25/19 11:45 04/25/19 12:34 Deltasone - PO 2.5 mg DAILY ES Administration Senna 1 tab 04/24/19 22:00 04/24/19 22:02 Senna - PO 1 tab HS ES Administration Impression 1. ESRD 2. HTN 3. abdominal librado 4. PKD 5. chf 6. anemia Plan - HD today - renal diet once eating - GI input appreciated - pt has HD set up as outpt - 3:45 opti 180 abf 400, 2k bath, heparin 3000, mercera 75 every 4 weeks
[2019-04-25] MEDS: SENNOSIDES 8.6MG TABLET (FP) PO SCH (21:56)
[2019-04-26] MEDS: HEPARIN NA (PORCINE) 5,000 UNITS/ML 1ML VIAL SQ SCH ×3 (06:30→21:33)
[2019-04-26] MEDS: METOCLOPRAMIDE HCL 10 MG TABLET (FP) PO SCH ×3 (06:31→16:56)
[2019-04-26 07:45] LABS: HEMATOCRIT 38.3 % (35.4-49); HEMOGLOBIN 12.5 GM/dL (11.7-16.9); MCH 27.7 pg (25.7-33.7); MCHC 32.6 g/dl (32.0-35.9); MEAN CELL VOLUME 84.9 fl (80-96); MEAN PLT VOLUME 8.6 fl (7.5-11.1); PLATELET COUNT 143 K/MM3 (134-434); RBC 4.51 M/mm3 (4.00-5.60); RDW 20.6 % (11.9-15.9); WHITE BLOOD COUNT 5.3 K/mm3 (4.0-10.0)
[2019-04-26 08:03] LABS: ALBUMIN 3.5 g/dl (3.4-5.0); BILIRUBIN,DIRECT 0.5 mg/dL (0.0-0.2); BILIRUBIN,TOTAL 1.1 mg/dL (0.2-1); BLOOD UREA NITROGEN 35.8 mg/dL (7-18); CALCIUM 8.3 mg/dL (8.5-10.1); CREATININE 6.6 mg/dL (0.55-1.3); MAGNESIUM 2.6 mg/dL (1.8-2.4); POTASSIUM 4.2 mmol/L (3.5-5.1); TOT PROT 7.2 g/dl (6.4-8.2)
--- NOTE | 2019-04-26 09:08 | PN ---
Progress Note, Physician History of Present Illness: No Cv complaints Feels much improved after HD yesterday Able to sleep supine Tele: Couplets & NSR - Current Medication List Current Medications: Active Medications Aspirin (Asa -) 81 mg PO DAILY [facility] Last Admin: 04/25/19 11:41 Dose: 81 mg Docusate Sodium (Colace -) 100 mg PO Q12H PRN PRN Reason: CONSTIPATION Heparin Sodium (Porcine) (Heparin -) 5,000 unit SQ TID [facility] Last Admin: 04/26/19 06:30 Dose: 5,000 unit Losartan Potassium (Cozaar -) 100 mg PO DAILY [facility] Last Admin: 04/25/19 11:42 Dose: 100 mg Metoclopramide HCl (Reglan -) 5 mg PO TIDAC [facility] Last Admin: 04/26/19 06:31 Dose: 5 mg Metoprolol Succinate (Toprol Xl -) 25 mg PO DAILY [facility] Last Admin: 04/25/19 11:41 Dose: 25 mg Pantoprazole Sodium (Protonix -) 40 mg PO DAILY [facility] Last Admin: 04/25/19 12:57 Dose: 40 mg Prednisone (Deltasone -) 2.5 mg PO DAILY [facility] Last Admin: 04/25/19 12:34 Dose: 2.5 mg Senna (Senna -) 1 tab PO HS [facility] Last Admin: 04/25/19 21:56 Dose: 1 tab - Objective Vital Signs: Vital Signs Temperature 97.9 F 04/26/19 06:57 Pulse Rate 83 04/26/19 06:57 Respiratory Rate 18 04/26/19 06:57 Blood Pressure 128/24 L 04/26/19 06:57 O2 Sat by Pulse Oximetry (%) 100 04/25/19 20:05 Constitutional: Yes: Well Nourished, No Distress Cardiovascular: Yes: Regular Rate and Rhythm, Tachycardia Respiratory: Yes: CTA Bilaterally Extremities: Yes: Other (Left arm AVF with strong thrill) Edema: No Labs: CBC, BMP 04/26/19 07:00 04/26/19 07:00 INR, PTT INR 1.86 (0.83-1.09) H 04/25/19 06:05 Assessment/Plan a/p: 43 m hx pckd with esrd on hd, htn, CAD, NSTEMI s/p SOURAV x 2 to LCx, syst chf p/w abd pain and shortness of breath. acute on chronic syst chf: -recently found sys chf, was evaluated and treated by [facility] chf team, thought to be myocarditis vs ideopathic -cont toprol 25 bid, losartan 100 qd -much improved with HD, would continue to aim for greater volume removal abd pain, elevated lfts: -possibly from chf but does not appear that vol overloaded -GI consulted -LFTs trending down CAD: - NSTEMI 10/2017 s/p SOURAV x 2 to LCX - had repeat cath 03/2019 for eval of newly reduced lvef, cath showed mild non obs dz and patent stents - no signs acs here - cont home aspirin, bb, arb - hold statin 2/2 elevated lfts for now
[2019-04-26] MEDS: LOSARTAN POTASSIUM 50 MG TABLET (FP) PO SCH (09:28)
[2019-04-26] MEDS: predniSONE 5 MG TABLET (UD) PO SCH (09:28)
[2019-04-26] MEDS: PANTOPRAZOLE 40 MG TABLET PO SCH (09:28)
[2019-04-26] MEDS: ASPIRIN 81 MG CHEWABLE TABLETS PO SCH (09:28)
[2019-04-26] MEDS: metoPROLOL SUCCINATE 25 MG TAB.SR.24H (FP) PO SCH (09:28)
--- NOTE | 2019-04-26 12:36 | PN ---
Physical Exam: SUBJECTIVE: Patient seen and examined. He has no complaints. OBJECTIVE: Vital Signs Period Temp Pulse Resp BP Sys/Hilario Pulse Ox Last 24 Hr 97.5 F-98.4 F 80-100 18-18 114-141/24-89 98-100 GENERAL: The patient is awake, alert, and fully oriented, in no acute distress. LUNGS: Breath sounds equal, clear to auscultation bilaterally, no wheezes, no crackles, no accessory muscle use. HEART: Regular rate and rhythm, S1, S2 without murmur, rub or gallop. ABDOMEN: Soft, nontender, nondistended, normoactive bowel sounds, no guarding, no rebound, no hepatosplenomegaly, no masses. EXTREMITIES: 2+ pulses, warm, well-perfused, no edema. Laboratory Results - last 24 hr 04/26/19 04/26/19 07:00 07:00 WBC 5.3 RBC 4.51 Hgb 12.5 Hct 38.3 MCV 84.9 MCH 27.7 MCHC 32.6 RDW 20.6 H Plt Count 143 MPV 8.6 Sodium 138 Potassium 4.2 Chloride 100 Carbon Dioxide 29 Anion Gap 10 BUN 35.8 H Creatinine 6.6 H Est GFR (CKD-EPI)AfAm 10.79 Est GFR (CKD-EPI)NonAf 9.31 Random Glucose 86 Calcium 8.3 L Magnesium 2.6 H Total Bilirubin 1.1 H Direct Bilirubin 0.5 H AST 149 H ALT 469 H Alkaline Phosphatase 139 H Total Protein 7.2 Albumin 3.5 Active Medications Generic Name Dose Route Start Last Admin Trade Name Freq PRN Reason Stop Dose Admin Aspirin 81 mg 04/25/19 10:00 04/26/19 09:28 Asa - PO 81 mg DAILY ES Administration Docusate Sodium 100 mg 04/24/19 14:22 Colace - PO Q12H PRN CONSTIPATION Heparin Sodium (Porcine) 5,000 unit 04/24/19 22:00 04/26/19 06:30 Heparin - SQ 5,000 unit TID ES Administration Losartan Potassium 100 mg 04/25/19 10:00 04/26/19 09:28 Cozaar - PO 100 mg DAILY ES Administration Metoclopramide HCl 5 mg 04/25/19 16:30 04/26/19 12:20 Reglan - PO 5 mg TIDAC ES Administration Metoprolol Succinate 25 mg 04/25/19 10:00 04/26/19 09:28 Toprol Xl - PO 25 mg DAILY ES Administration Pantoprazole Sodium 40 mg 04/25/19 12:45 04/26/19 09:28 Protonix - PO 40 mg DAILY ES Administration Prednisone 2.5 mg 04/25/19 11:45 04/26/19 09:28 Deltasone - PO 2.5 mg DAILY ES Administration Senna 1 tab 04/24/19 22:00 04/25/19 21:56 Senna - PO 1 tab HS ES Administration ASSESSMENT/PLAN: This is a 43 year old man with a history of ESRD, polycystic kidney disease, CAD , MA, cardiac stent, HTN, chronic systolic and diastolic heart failure, gout who presented to the ED with abdominal pain. 1. Abdominal pain with hepatic transaminitis, elevated alk phos, elevated LD, hyperbilirubinemia - US shows trace ascites, gallbladder wall thickening, polycystic kidneys - MRCP shows normal biliary and pancreatic ducts, normal pancreas, gallbladder wall thickening, polycystic kidneys - Lipitor held - GI recommended holding Sensipar - AST, ALT, alk phos, total bili improving - Hepatitis panel pending 2. ESRD secondary to polycystic kidney disease - Continue HD as per nephrology 3. CAD, history of MA and stent placement - Continue aspirin, Toprol XL - Lipitor held secondary to transaminitis 4. HTN - Continue Cozaar, Toprol XL 5. Acute on chronic systolic and diastolic heart failure - Improved - Continue Cozaar, Toprol XL - Fluid management with HD 6. History of gout - Continue prednisone Visit type - Emergency Visit Emergency Visit: Yes ED Registration Date: 04/24/19 Care time: The patient presented to the Emergency Department on the above date and was hospitalized for further evaluation of their emergent condition. - New Patient This patient is new to me today: No - Critical Care Critical Care patient: No - Discharge Referral Referred to [facility] Med P.C.: No
--- NOTE | 2019-04-26 14:32 | PN.GI ---
GI Progress Note Subjective: tolerating diet, no nausea and vomiting, LFTS downward trend - Objective Vital Signs: Vital Signs Temperature 98.1 F 04/26/19 10:00 Pulse Rate 100 H 04/26/19 10:00 Respiratory Rate 18 04/26/19 10:00 Blood Pressure 141/83 04/26/19 10:00 O2 Sat by Pulse Oximetry (%) 98 04/26/19 10:00 Constitutional: Well Nourished Eyes: Yes: Conjunctiva Clear HENT: Yes: Atraumatic Neck: Yes: Supple Cardiovascular: Yes: Regular Rate and Rhythm Respiratory: Yes: CTA Bilaterally ...Palpate: Yes: Soft. No: Firm/Rigid, Guarding, Hepatomegaly, Mass, Pulsatile Mass, Splenomegaly, Tenderness Labs: CBC, BMP 04/26/19 07:00 04/26/19 07:00 INR, PTT INR 1.86 (0.83-1.09) H 04/25/19 06:05 Hepatic Panel Total Bilirubin 1.1 mg/dL (0.2-1) H 04/26/19 07:00 Direct Bilirubin 0.5 mg/dL (0.0-0.2) H 04/26/19 07:00 AST 149 U/L (15-37) H 04/26/19 07:00 ALT 469 U/L (13-61) H 04/26/19 07:00 Alkaline Phosphatase 139 U/L (45-117) H 04/26/19 07:00 Albumin 3.5 g/dl (3.4-5.0) 04/26/19 07:00 Problem List - Problems (1) Hepatocellular injury Assessment/Plan: R> repeat LFTS adjust medication for primary parathyroidism and statins Code(s): K76.9 - LIVER DISEASE, UNSPECIFIED
--- NOTE | 2019-04-26 19:06 | PN ---
Progress Note, Physician History of Present Illness: Pt seen and examined at bedside. he is tolerating diet. - Current Medication List Current Medications: Active Medications Aspirin (Asa -) 81 mg PO DAILY [facility] Last Admin: 04/26/19 09:28 Dose: 81 mg Docusate Sodium (Colace -) 100 mg PO Q12H PRN PRN Reason: CONSTIPATION Heparin Sodium (Porcine) (Heparin -) 5,000 unit SQ TID [facility] Last Admin: 04/26/19 15:44 Dose: 5,000 unit Losartan Potassium (Cozaar -) 100 mg PO DAILY [facility] Last Admin: 04/26/19 09:28 Dose: 100 mg Metoclopramide HCl (Reglan -) 5 mg PO TIDAC [facility] Last Admin: 04/26/19 16:56 Dose: 5 mg Metoprolol Succinate (Toprol Xl -) 25 mg PO DAILY [facility] Last Admin: 04/26/19 09:28 Dose: 25 mg Pantoprazole Sodium (Protonix -) 40 mg PO DAILY [facility] Last Admin: 04/26/19 09:28 Dose: 40 mg Prednisone (Deltasone -) 2.5 mg PO DAILY [facility] Last Admin: 04/26/19 09:28 Dose: 2.5 mg Senna (Senna -) 1 tab PO HS [facility] Last Admin: 04/25/19 21:56 Dose: 1 tab - Objective Vital Signs: Vital Signs Temperature 98.1 F 04/26/19 18:00 Pulse Rate 90 04/26/19 18:00 Respiratory Rate 18 04/26/19 18:00 Blood Pressure 140/90 04/26/19 18:00 O2 Sat by Pulse Oximetry (%) 98 04/26/19 10:00 Constitutional: Yes: Calm Eyes: Yes: Conjunctiva Clear HENT: Yes: Atraumatic Neck: Yes: Supple Cardiovascular: Yes: S1, S2 Respiratory: Yes: CTA Bilaterally Gastrointestinal: Yes: Soft Genitourinary: Yes: WNL Musculoskeletal: Yes: WNL Edema: No Integumentary: Yes: WNL Neurological: Yes: Oriented Psychiatric: Yes: Oriented Labs: CBC, BMP 04/26/19 07:00 04/26/19 07:00 INR, PTT INR 1.86 (0.83-1.09) H 04/25/19 06:05 Problem List - Problems (1) ESRD (end stage renal disease) Code(s): N18.6 - END STAGE RENAL DISEASE Assessment/Plan Current Medications Generic Name Dose Route Start Last Admin Trade Name Freq PRN Reason Stop Dose Admin Aspirin 81 mg 04/25/19 10:00 04/26/19 09:28 Asa - PO 81 mg DAILY ES Administration Docusate Sodium 100 mg 04/24/19 14:22 Colace - PO Q12H PRN CONSTIPATION Heparin Sodium (Porcine) 5,000 unit 04/24/19 22:00 04/26/19 15:44 Heparin - SQ 5,000 unit TID ES Administration Losartan Potassium 100 mg 04/25/19 10:00 04/26/19 09:28 Cozaar - PO 100 mg DAILY ES Administration Metoclopramide HCl 5 mg 04/25/19 16:30 04/26/19 16:56 Reglan - PO 5 mg TIDAC ES Administration Metoprolol Succinate 25 mg 04/25/19 10:00 04/26/19 09:28 Toprol Xl - PO 25 mg DAILY ES Administration Pantoprazole Sodium 40 mg 04/25/19 12:45 04/26/19 09:28 Protonix - PO 40 mg DAILY ES Administration Prednisone 2.5 mg 04/25/19 11:45 04/26/19 09:28 Deltasone - PO 2.5 mg DAILY ES Administration Senna 1 tab 04/24/19 22:00 04/25/19 21:56 Senna - PO 1 tab HS ES Administration Impression 1. ESRD 2. HTN 3. abdominal pain 4. PKD 5. chf 6. anemia 7. transaminitis Plan - lft improving - GI on board - next HD on Saturday - renal diet - pt has HD set up as outpt - 3:45 opti 180 abf 400, 2k bath, heparin 3000, mercera 75 every 4 weeks
[2019-04-26] MEDS: SENNOSIDES 8.6MG TABLET (FP) PO SCH (21:33)
[2019-04-27] MEDS: METOCLOPRAMIDE HCL 10 MG TABLET (FP) PO SCH ×2 (06:24→11:56)
[2019-04-27] MEDS: HEPARIN NA (PORCINE) 5,000 UNITS/ML 1ML VIAL SQ SCH ×2 (06:24→14:37)
[2019-04-27 08:03] LABS: ALBUMIN 3.3 g/dl (3.4-5.0); BILIRUBIN,TOTAL 0.7 mg/dL (0.2-1); BLOOD UREA NITROGEN 60.8 mg/dL (7-18); CALCIUM 8.2 mg/dL (8.5-10.1); POTASSIUM 4.3 mmol/L (3.5-5.1); TOT PROT 6.6 g/dl (6.4-8.2)
[2019-04-27 08:14] LABS: CREATININE 8.5 mg/dL (0.55-1.3)
--- NOTE | 2019-04-27 09:33 | PN ---
Progress Note, Physician Chief Complaint: abd pain History of Present Illness: denies sob, orthopnea no leg swelling no cp no etoh - Current Medication List Current Medications: Active Medications Aspirin (Asa -) 81 mg PO DAILY [facility] Last Admin: 04/26/19 09:28 Dose: 81 mg Docusate Sodium (Colace -) 100 mg PO Q12H PRN PRN Reason: CONSTIPATION Heparin Sodium (Porcine) (Heparin -) 5,000 unit SQ TID [facility] Last Admin: 04/27/19 06:24 Dose: 5,000 unit Losartan Potassium (Cozaar -) 100 mg PO DAILY [facility] Last Admin: 04/26/19 09:28 Dose: 100 mg Metoclopramide HCl (Reglan -) 5 mg PO TIDAC [facility] Last Admin: 04/27/19 06:24 Dose: 5 mg Metoprolol Succinate (Toprol Xl -) 25 mg PO DAILY [facility] Last Admin: 04/26/19 09:28 Dose: 25 mg Pantoprazole Sodium (Protonix -) 40 mg PO DAILY [facility] Last Admin: 04/26/19 09:28 Dose: 40 mg Prednisone (Deltasone -) 2.5 mg PO DAILY [facility] Last Admin: 04/26/19 09:28 Dose: 2.5 mg Senna (Senna -) 1 tab PO HS [facility] Last Admin: 04/26/19 21:33 Dose: 1 tab - Objective Vital Signs: Vital Signs Temperature 98.1 F 04/27/19 05:54 Pulse Rate 94 H 04/27/19 05:54 Respiratory Rate 18 04/27/19 05:54 Blood Pressure 124/80 04/27/19 05:54 O2 Sat by Pulse Oximetry (%) 100 04/26/19 21:00 Constitutional: Yes: Well Nourished, No Distress, Calm Cardiovascular: Yes: Regular Rate and Rhythm, S1, S2. No: Gallop, Murmur Respiratory: Yes: Regular, CTA Bilaterally. No: Accessory Muscle Use, Rales, Wheezes Extremities: No: Cold Edema: No Neurological: Yes: Alert, Oriented Psychiatric: No: Agitated Labs: CBC, BMP 04/26/19 07:00 04/27/19 07:00 INR, PTT INR 1.86 (0.83-1.09) H 04/25/19 06:05 Assessment/Plan echo 03/2019 mild conc LVH, severely reduced LV function EF 20%, impaired relaxation, mild MR, mod TR tele: SR, NSVT x 8b a/p: 43 m hx pckd with esrd on hd, htn, CAD, NSTEMI s/p SOURAV x 2 to LCx, syst chf p/w abd pain and shortness of breath. acute on chronic syst chf: -04/06 here with new syst chf, was evaluated and treated by [facility] chf team, thought to be myocarditis vs ideopathic -cont toprol 25 bid, losartan 100 qd--would titrate BB dose as bp at HD tolerates -much improved with HD, would continue to aim for greater volume removal NSVT: -K/Mag repletion to 06/17 -rec repeat echo: if EF not improved, suggest life vest until completes 3 mo of optimal GDMT and consider ICD at ervin time if EF still 35% or below ESRD: -HD per renal abd pain, elevated lfts: -possibly from chf but does not appear that vol overloaded -LFTs trending down -per GI CAD: - NSTEMI 10/2017 s/p SOURAV x 2 to LCX - had repeat cath 03/2019 for eval of newly reduced lvef, cath showed mild non obs dz and patent stents - no signs acs here - cont home aspirin, bb, arb - hold statin 2/2 elevated lfts for now
[2019-04-27] MEDS: PANTOPRAZOLE 40 MG TABLET PO SCH (09:42)
[2019-04-27] MEDS: ASPIRIN 81 MG CHEWABLE TABLETS PO SCH (09:42)
[2019-04-27] MEDS: LOSARTAN POTASSIUM 50 MG TABLET (FP) PO SCH (09:43)
[2019-04-27] MEDS: metoPROLOL SUCCINATE 25 MG TAB.SR.24H (FP) PO SCH (09:43)
[2019-04-27] MEDS: predniSONE 5 MG TABLET (UD) PO SCH (09:45)
--- NOTE | 2019-04-27 12:30 | PN ---
Progress Note (short form) - Note Progress Note: Renal follow up for ESRD on HD Seen and examined at the bedside offers no acute complaints abd pain is improved no sob, cp, fever or chills Last dialysis was Saturday Vital Signs Temperature 97.3 F L 04/27/19 09:41 Pulse Rate 95 H 04/27/19 09:41 Respiratory Rate 18 04/27/19 09:41 Blood Pressure 139/91 04/27/19 09:41 O2 Sat by Pulse Oximetry (%) 100 04/26/19 21:00 Intake & Output 04/24/19 04/25/19 04/26/19 04/27/19 23:59 23:59 23:59 23:59 Intake Total 1280 1290 420 Output Total 2300 Balance -1020 1290 420 Weight 71.214 kg NAD awake and alert RRR CTA soft NT/ND no LE edema CBC, BMP 04/26/19 07:00 04/27/19 07:00 Current Medications Aspirin (Asa -) 81 mg PO DAILY [facility] Last Admin: 04/27/19 09:42 Dose: 81 mg Docusate Sodium (Colace -) 100 mg PO Q12H PRN PRN Reason: CONSTIPATION Heparin Sodium (Porcine) (Heparin -) 5,000 unit SQ TID [facility] Last Admin: 04/27/19 06:24 Dose: 5,000 unit Losartan Potassium (Cozaar -) 100 mg PO DAILY [facility] Last Admin: 04/27/19 09:43 Dose: 100 mg Metoclopramide HCl (Reglan -) 5 mg PO TIDAC [facility] Last Admin: 04/27/19 11:56 Dose: 5 mg Metoprolol Succinate (Toprol Xl -) 25 mg PO DAILY [facility] Last Admin: 04/27/19 09:43 Dose: 25 mg Pantoprazole Sodium (Protonix -) 40 mg PO DAILY [facility] Last Admin: 04/27/19 09:42 Dose: 40 mg Prednisone (Deltasone -) 2.5 mg PO DAILY [facility] Last Admin: 04/27/19 09:45 Dose: 2.5 mg Senna (Senna -) 1 tab PO HS [facility] Last Admin: 04/26/19 21:33 Dose: 1 tab 43 year old male with pmhx of esrd, pkd, cad, htn, chf (EF 20%), PCKD and gout who presents to the ER with abdominal pain and heartburn. 1. ESRD on HD 2. Systolic HF 3. Abdominal pain with elevated LFT's 4. Hypertension 5. PCKD There is no acute indication for dialysis today. Next treatment tomorrow. Renal diet, 1.2L fluid restriction. LFT's improving off statin and sensipar Cardiology recommendation noted, may need life vest and possible AICD BP at goal Thank you Stephan Cunningham DO
--- NOTE | 2019-04-27 14:23 | ECHO ---
Name: ERROL MADY Conrado Exam:Adult Echocardiogram Study Date: 04/27/2019 01:11 PM Age: 43 yrs Reason For Study: sys chf repeat as per dr noemi Height: 68 in Weight: 157 lb BSA: 1.8 m2 MMode/2D Measurements & Calculations IVSd: 0.96 cm Ao root diam: 2.7 cm LVIDd: 5.2 cm LA dimension: 4.6 cm LVIDs: 4.7 cm LVPWd: 1.2 cm LVPWs: 1.5 cm EDV(Teich): 129.2 ml ESV(Teanitha): 104.1 ml LVOT diam: 2.0 cm TAPSE: 1.1 cm RV S Nolberto: 7.4 cm/sec Doppler Measurements & Calculations MV E max nolberto: 66.5 cm/sec Ao V2 max: 110.6 cm/sec MV A max nolberto: 40.7 cm/sec Ao max P.9 mmHg MV E/A: 1.6 MV dec time: 0.12 sec KEITH(V,D): 2.0 cm2 LV V1 max P.8 mmHg MR max nolberto: 367.8 cm/sec LV V1 max: 67.4 cm/sec MR max P.1 mmHg TV V2 max: 66.8 cm/sec TR max nolberto: 307.2 cm/sec TV max P.8 mmHg TR max P.0 mmHg TV V2 mean: 54.9 cm/sec TV mean P.3 mmHg TV V2 VTI: 19.3 cm PA V2 max: 75.6 cm/sec Med Peak E' Nolberto: 4.7 cm/sec PA max P.3 mmHg Med E/e': 14.2 Lat Peak E' Nolberto: 9.4 cm/sec Lat E/e': 7.1 Procedure Study Quality: Fair. Left Ventricle The left ventricle is normal in size. Left ventricular systolic function is severely reduced. Ejectio n Fraction = 20%. There is severe global hypokinesis of the left ventricle. Right Ventricle The right ventricle is normal size. The right ventricular systolic function is severely reduced. Atria The left atrium is severely dilated. Borderline right atrial enlargement. Mitral Valve The mitral valve leaflets appear normal. There is no evidence of stenosis, fluttering, or prolapse. T here is trace to mild mitral regurgitation. Tricuspid Valve The tricuspid valve is normal. Tethered. There is moderate tricuspid regurgitation. Aortic Valve The aortic valve is normal in structure and function. Pulmonic Valve There is mild pulmonic valve thickening. Trace to mild pulmonic valvular regurgitation. Great Vessels The aortic root is normal size. Pericardium/Pleura Trivial pericardial effusion. Interpretation Summary LV: Normal size,severe global hypokinesia,severely decreased systolic function, EF 20% RV: Normal size, severly decreased systolic function LA: Severely dilated Mild mitral regurgitation Moderate tricuspid regurgitation with severe pulmonary hypertension: RVSP>60 mmHg Trivia pericardial effusion. Kasandra Santillan 04/27/2019 02:23 PM
--- NOTE | 2019-04-27 15:04 | PN ---
Progress Note (short form) - Note Progress Note: GI follow up PT tolerating PO, no abdominal pain, N/V Statin and PTH medication held Hepatic Panel Total Bilirubin 0.7 mg/dL (0.2-1) 04/27/19 07:00 Direct Bilirubin 0.5 mg/dL (0.0-0.2) H 04/26/19 07:00 AST 73 U/L (15-37) H 04/27/19 07:00 ALT 305 U/L (13-61) H 04/27/19 07:00 Alkaline Phosphatase 123 U/L (45-117) H 04/27/19 07:00 Albumin 3.3 g/dl (3.4-5.0) L 04/27/19 07:00 LFTs downtrending ? DILI vs ischemic hepatopathy (? if pt was volume down when came in, superimposed on pre-existing systolic heart failure) Continue to trend LFTs Avoid hepatotoxins
[2019-04-27 15:10] VITALS: BP 137/86; PULSE 82; TEMP 97.4
--- NOTE | 2019-04-27 16:56 | DS ---
Physical Exam: SUBJECTIVE: Patient seen and examined. No abdominal pain, no n/v, no SB, no chest pain. Pt reports having gaseous sensation. OBJECTIVE: Vital Signs Period Temp Pulse Resp BP Sys/Hilario Pulse Ox Last 24 Hr 97.3 F-98.1 F 82-95 18-18 124-142/80-91 99-100 Vital Signs Temp 97.4 F L 04/27/19 15:10 Pulse 82 04/27/19 15:10 Resp 18 04/27/19 15:10 BP 137/86 04/27/19 15:10 Pulse Ox 99 04/27/19 09:00 Intake & Output 04/26/19 04/27/19 04/27/19 23:59 11:59 23:59 Intake Total 1170 420 540 Balance 1170 420 540 Intake: IV 20 S/L 20 Oral 1150 420 540 Other: Voiding Method Toilet Toilet # Unmeasured Voids Void 1 2 2 Bowel Movement Yes # Bowel Movements 1 PHYSICAL EXAM GENERAL: The patient is awake, alert, and fully oriented, in no acute distress. ENT: moist mucous membranes. LUNGS: Breath sounds equal, clear to auscultation bilaterally, no wheezes, few basal crackles HEART: Regular rate and rhythm, S1, S2 without murmur, rub or gallop. ABDOMEN: Soft, nontender, full, normoactive bowel sounds, no guarding, no rebound, no hepatosplenomegaly, no masses. EXTREMITIES: 2+ pulses, warm, well-perfused, mild, b/l pedal edema. RUE fistula with bruit NEUROLOGICAL: Cranial nerves II through XII grossly intact. Normal speech, gait not observed. PSYCH: Normal mood, normal affect. LABS Laboratory Results - last 24 hr 04/24/19 04/25/19 04/27/19 16:45 15:30 07:00 Sodium 137 Potassium 4.3 Chloride 101 Carbon Dioxide 26 Anion Gap 10 BUN 60.8 H Creatinine 8.5 H* Est GFR (CKD-EPI)AfAm 7.94 Est GFR (CKD-EPI)NonAf 6.85 Random Glucose 88 Calcium 8.2 L Total Bilirubin 0.7 AST 73 H ALT 305 H Alkaline Phosphatase 123 H Total Protein 6.6 Albumin 3.3 L EBV IgM Ab <36.0 Hep A IgM Ab Confirm Negative Hep Bs Antigen Negative Hep B Core IgM Ab Negative Hepatitis C Ab (EIA) <0.1 US -04/25 shows trace ascites, gallbladder wall thickening, polycystic kidneys MRCP-04/25 (poor image) shows normal biliary and pancreatic ducts, normal pancreas , gallbladder wall thickening, polycystic kidneys ECHO- 03/2019- mild conc LVH, severely reduced LV function EF 20%, impaired relaxation, mild MR, mod TR ECH 04/27/2019-LV-nl size, severe global hypokinesia, severely reduced systolic function EF 20%, RV-nl size, severely reduced systolic function, LA severely dilated, mild MR, mod TR with severe PH- RVSP >60. HOSPITAL COURSE: Date of Admission:04/24/19 Date of Discharge: 04/27/19 Pt is a 43 yo M with a PMHx of ESRD, polycystic kidney disease, CAD, [place], cardiac stent, HTN, chronic systolic and diastolic heart failure, gout who presented to the ED with abdominal pain and shortness of breath, and was found to have elevated liver enzymes (AST, ALT, ALP, veronika) and a hx of HFrEF. Lipitor and sensipar were held and liver enzymes improved with resolution of abdominal pain. US and MRCP showed thickened GB. Pt was seen by GI who considered DILI vs CHF. Cardiology also saw the pt and recommended repeat ECHO, after which if EF not improved, suggest life vest until completes 3 mo of optimal GDMT and consider ICD at that time if EF still 35% or below. Pt will follow cardiology as an outpt. Pt was restarted on 2.5mg of prednisone for gout and was discharged with 5 days dose to follow up with rheumatology as an outpt. Pt will continue outpt dialysis TTHSa per renal and continue ARB and BB, pending outpt re-evaluation for resumption of statin/and or sensipar. Pt will also follow up with GI for further workup for GB thickening on imaging. Minutes to complete discharge: 35 Discharge Summary Problems reviewed: Yes Reason For Visit: HEART FAILURE Current Active Problems Abnormal liver function tests (Acute) Hepatocellular injury (Acute) Hepatocellular injury (Acute) SOB (shortness of breath) (Acute) Heart failure (Chronic) Condition: Improved - Instructions Diet, Activity, Other Instructions: You came in for abdominal pain and were found to have elevated liver enzymes You had an ultrasound that showed a thickened gall bladder but the MRI result was not adequate Medications stopped: Your statins- lipitor and sensipar were stopped and your liver enzymes have since come down Hold off resuming them until after you get repeat blood work done for your liver enzymes Medications added: We have started you on medications to help with abdominal discomfort: Docusate 100mg twice a day Reglan 5mg three times a day Protonix 40mg daily Senna one tablet daily Medications to continue: Continue other medications except lipitor and sensipar Follow up: Continue your outpatient dialysis Follow up with a heart doctor Follow up with a kidney doctor- you have been set up for outpatient dialysis Follow up with your hand tennis ball coverer for gout, You will receive a low dose prednisone 2.5mg for 5 days until you can follow up with your hand tennis ball coverer Follow up with a GI- doctor for further evaluation of your gall bladder You need to have follow up labs done to assess your liver enzymes with your primary care doctor in one week You need to follow up with a primary care doctor in one week Information has been provided to follow Dr Opal Pena at [facility] [id number] Please call to make an appointment for afternoon between 1-3pm If you think your symptoms are not getting better with worsening abdominal pain , chest pain or shortness of breath, please return to the nearest emergency room Referrals: [facility] [place] [facility] [place] [Provider Group] - 1 Week (Follow up with Dr Opal Pena on afternoon 1-3pm Call to make an appointment) Chester Yusuf DO [Staff Physician] - 2 Weeks Soto Sears MD [Staff Physician] - 1 Week King Figueredo MD [Staff Physician] - 2 Weeks Kami Shipman MD [Staff Physician] - 1 Week Disposition: HOME - Home Medications Comprehensive Discharge Medication List: Ambulatory Orders ASA - 81 mg PO DAILY 03/31/18 Losartan Potassium 100 mg PO DAILY 03/31/18 Metoprolol Succinate [Toprol Xl] 25 mg PO DAILY 04/24/19 Sevelamer Carbonate 800 mg PO TID 04/24/19 Docusate Sodium [Colace -] 100 mg PO Q12H PRN #60 capsule 04/27/19 Metoclopramide HCl [Reglan -] 5 mg PO TIDAC #30 tablet 04/27/19 Pantoprazole Sodium [Protonix -] 40 mg PO DAILY #30 tablet.ec 04/27/19 Sennosides [Senna -] 1 tab PO HS #30 tablet 04/27/19 predniSONE [Deltasone -] 2.5 mg PO DAILY #5 tablet 04/27/19 This patient is new to me today: Yes Date on this admission: 04/27/19 Emergency Visit: Yes ED Registration Date: 04/24/19 Care time: The patient presented to the Emergency Department on the above date and was hospitalized for further evaluation of their emergent condition. Critical Care patient: No - Discharge Referral Referred to [facility] No ATTENDING PHYSICIAN STATEMENT I saw and evaluated the patient. I reviewed the resident's note and discussed the case with the resident. I agree with the resident's findings and plan as documented. SUBJECTIVE: OBJECTIVE: ASSESSMENT AND PLAN:
--- NOTE | 2019-04-27 19:12 | PN ---
Teaching Attending Note Name of Resident: Opal Pena ATTENDING PHYSICIAN STATEMENT I saw and evaluated the patient. I reviewed the resident's note and discussed the case with the resident. I agree with the resident's findings and plan as documented. SUBJECTIVE: Patient has no complaints. OBJECTIVE: Vital Signs Period Temp Pulse Resp BP Sys/Hilario Pulse Ox Last 24 Hr 97.3 F-98.1 F 82-95 18-18 124-142/80-91 99-100 GENERAL: The patient is awake, alert, and fully oriented, in no acute distress. LUNGS: Breath sounds equal, clear to auscultation bilaterally, no wheezes, no crackles, no accessory muscle use. HEART: Regular rate and rhythm, S1, S2 without murmur, rub or gallop. ABDOMEN: Soft, nontender, nondistended, normoactive bowel sounds, no guarding, no rebound, no hepatosplenomegaly, no masses. EXTREMITIES: 2+ pulses, warm, well-perfused, no edema. Laboratory Results - last 24 hr 04/24/19 04/25/19 04/27/19 16:45 15:30 07:00 Sodium 137 Potassium 4.3 Chloride 101 Carbon Dioxide 26 Anion Gap 10 BUN 60.8 H Creatinine 8.5 H* Est GFR (CKD-EPI)AfAm 7.94 Est GFR (CKD-EPI)NonAf 6.85 Random Glucose 88 Calcium 8.2 L Total Bilirubin 0.7 AST 73 H ALT 305 H Alkaline Phosphatase 123 H Total Protein 6.6 Albumin 3.3 L EBV IgM Ab <36.0 Hep A IgM Ab Confirm Negative Hep Bs Antigen Negative Hep B Core IgM Ab Negative Hepatitis C Ab (EIA) <0.1 ASSESSMENT AND PLAN: This is a 43 year old man with a history of ESRD, polycystic kidney disease, CAD, [place], cardiac stent, HTN, chronic systolic and diastolic heart failure, gout who presented to the ED with abdominal pain. 1. Abdominal pain with hepatic transaminitis, elevated alk phos, elevated LD, hyperbilirubinemia - US shows trace ascites, gallbladder wall thickening, polycystic kidneys - MRCP shows normal biliary and pancreatic ducts, normal pancreas, gallbladder wall thickening, polycystic kidneys - Lipitor held - GI recommended holding Sensipar - AST, ALT, alk phos, total bili improving - Hepatitis panel negative 2. ESRD secondary to polycystic kidney disease - Continue HD as per nephrology 3. CAD, history of UT and stent placement - Continue aspirin, Toprol XL - Lipitor held secondary to transaminitis 4. HTN - Continue Cozaar, Toprol XL 5. Acute on chronic systolic and diastolic heart failure - Improved - Continue Cozaar, Toprol XL - Fluid management with HD 6. History of gout - Continue prednisone 7. Disposition - Ok for discharge
== END 2019-04-27 16:50 | disposition home or self-care (01) | DRG 291 ==
LOC: JER 03:47 → JERBED 06:02 → J4S 15:59
PROVIDERS: ATTEND Internal Medicine
DX: I13.2 Hypertensive heart and chronic kidney disease with heart failure and with stage 5 chronic kidney disease, or end stage renal disease (principal); N18.6 End stage renal disease; I50.43 Acute on chronic combined systolic (congestive) and diastolic (congestive) heart failure; Q61.3 Polycystic kidney, unspecified; I47.1 Supraventricular tachycardia; R74.0 Nonspecific elevation of levels of transaminase and lactic acid dehydrogenase [LDH]; E80.6 Other disorders of bilirubin metabolism; K76.9 Liver disease, unspecified; I25.10 Atherosclerotic heart disease of native coronary artery without angina pectoris; Z95.5 Presence of coronary angioplasty implant and graft; M1A.9XX1 Chronic gout, unspecified, with tophus (tophi)
CPT/HCPCS: 36415; 71046-TC-FY; 74181-TC; 76700-TC; 80048; 80053; 80074; 80076; 82550; 83615; 83690; 83735; 83880; 84100; 84484; 84550; 85025; 85027; 85610; 85730; 86665; 87804; 87807; 93005; 93010; 93306-TC; 97116-GP; 97161-GP; 99285-25; J1644

== ENCOUNTER 2023-12-18 17:25 | Inpatient (IN) | payer BC, OTHER ==
[2023-12-18] MEDS ORDERED: NITROGLYCERIN 2% OINTMENT - 1GM PACKET TD ONE (17:50)
[2023-12-18] MEDS: NITROGLYCERIN 2% OINTMENT - 1GM PACKET TD ONE (18:00)
[2023-12-18 18:03] LABS: BASO % 0.8 % (0-2.0); EOS % 4.8 % (0-4.5); HEMATOCRIT 39.8 % (35.4-49); HEMOGLOBIN 13.2 GM/dL (11.7-16.9); LYMPH % 12.3 % (8-40); MCH 26.6 pg (25.7-33.7); MCHC 33.1 g/dl (32.0-35.9); MEAN CELL VOLUME 80.4 fl (80-96); MONO % 3.5 % (3.8-10.2); NEUT % 78.6 % (42.8-82.8); PLATELET COUNT 253 10^3/uL (134-434); RBC 4.95 M/mm3 (4.00-5.60); RDW 14.7 % (11.9-15.9); WHITE BLOOD COUNT 12.3 K/mm3 (4.0-10.0)
[2023-12-18 18:13] LABS: INR 1.03 (0.83-1.09); PROTHROMBIN TIME (PATIENT) 11.8 SEC (9.7-13.0); VENOUS BASE EXCESS -6.7 mmol/L (-2-2); VENOUS O2 SATURATION 59.9 % (70-80); VENOUS PCO2 46.6 mmHg (38-52); VENOUS PH 7.259 (7.310-7.410)
[2023-12-18 18:16] LABS: ACTIVATED PTT 40.6 SECONDS (25.2-36.5)
[2023-12-18] MEDS ORDERED: ASPIRIN 81 MG CHEWABLE TABLETS ONE (18:19)
[2023-12-18] MEDS: ASPIRIN 81 MG CHEWABLE TABLETS PO ONE (18:20)
[2023-12-18 18:29] LABS: CHLORIDE 97 mmol/L (98-107); POTASSIUM 5.9 mmol/L (3.5-5.1); SODIUM 132 mmol/L (136-145)
[2023-12-18 18:31] LABS: CALCIUM 9.2 mg/dL (8.5-10.1)
[2023-12-18 18:32] LABS: ALBUMIN 4.2 g/dl (3.4-5.0); ANION GAP 15 mmol/L (4-13); BLOOD UREA NITROGEN 71.1 mg/dL (7-18); CO2 20 mmol/L (21-32); GLUCOSE,RANDOM 101 mg/dL (74-106); MAGNESIUM 2.5 mg/dL (1.8-2.4)
[2023-12-18 18:35] LABS: SGOT/AST 14 U/L (15-37); SGPT/ALT 16 U/L (13-61)
[2023-12-18 18:36] LABS: BILIRUBIN,TOTAL 0.6 mg/dL (0.2-1)
[2023-12-18 18:37] LABS: TOT PROT 8.6 g/dl (6.4-8.2)
[2023-12-18 18:38] LABS: ALK PHOS 323 U/L (45-117)
[2023-12-18 18:42] LABS: CREATININE 16.1 mg/dL (0.55-1.3); N-TERMINAL BNP > 35000.0 pg/ml (5-125)
[2023-12-18] MEDS ORDERED: SODIUM CHLORIDE 250 ML IV PRN (18:53)
[2023-12-18] MEDS ORDERED: SODIUM ZIRCONIUM CYCLOSILICATE (LOKELMA) 5 GM PACKET ONE (19:00)
[2023-12-18] MEDS ORDERED: DEXTROSE 50%-WATER 25 GM/50 ML DISP.SYRIN ONE (19:00)
[2023-12-18] MEDS ORDERED: CALCIUM GLUC IN NACL, ISO-OSM 1 GM/50 ML BAG IVPB ONE (19:00)
[2023-12-18] MEDS ORDERED: INSULIN REGULAR HUMAN 100 UNITS/ML *VIAL ONE (19:01)
[2023-12-18] MEDS ORDERED: FUROSEMIDE 40 MG/4 ML INJECTABLE VIAL ONE (19:01)
[2023-12-18] MEDS: CALCIUM GLUCONATE 10% - 1,000 MG/10 ML VIAL IVPUSH ONE (19:14)
[2023-12-18] MEDS: FUROSEMIDE 40 MG/4 ML INJECTABLE VIAL IVPUSH ONE (19:15)
[2023-12-18] MEDS: INSULIN REGULAR HUMAN 100 UNITS/ML *VIAL IVPUSH ONE (19:15)
[2023-12-18] MEDS: DEXTROSE 50%-WATER - 25 GM/50 ML VIAL IVPUSH ONE (19:15)
[2023-12-18] MEDS: SODIUM ZIRCONIUM CYCLOSILICATE (LOKELMA) 5 GM PACKET PO ONE (19:15)
[2023-12-18] MEDS: HEPARIN NA (PORCINE) 5,000 UNITS/ML 1ML VIAL IVPUSH ONE (20:35)
[2023-12-18 21:25] VITALS: BMI 26.6
[2023-12-18] MEDS: MUPIROCIN 2% TOPICAL OINTMENT FOR DECOLONIZATION NS SCH (22:39)
[2023-12-18 23:02] LABS: EPI CELLS 2 /uL (0-25.1); HYALINE CASTS 0 /uL (0-3.1); URINE APPEARANCE CLEAR; URINE BACTERIA 16 /uL (0-1359); URINE BILIRUBIN NEGATIVE (NEGATIVE); URINE COLOR YELLOW; URINE GLUCOSE (UA) NEGATIVE (NEGATIVE); URINE KETONE NEGATIVE (NEGATIVE); URINE LEUK ESTERASE NEGATIVE (NEGATIVE); URINE NITRITE NEGATIVE (NEGATIVE); URINE PROTEIN 3+ (NEGATIVE); URINE RBC 93 /uL (0-23.9); URINE UROBILINOGEN 0.2 mg/dL (0.2-1.0); URINE WBC 5 /uL (0-25.8)
[2023-12-19 08:49] LABS: CHLORIDE 98 mmol/L (98-107); POTASSIUM 5.1 mmol/L (3.5-5.1); SODIUM 137 mmol/L (136-145)
[2023-12-19 08:56] LABS: CALCIUM 8.8 mg/dL (8.5-10.1)
[2023-12-19 08:57] LABS: ANION GAP 12 mmol/L (4-13); BLOOD UREA NITROGEN 47.1 mg/dL (7-18); CO2 28 mmol/L (21-32); GLUCOSE,RANDOM 94 mg/dL (74-106); MAGNESIUM 2.1 mg/dL (1.8-2.4)
[2023-12-19 09:00] LABS: PHOSPHOROUS 6.4 mg/dL (2.5-4.9)
[2023-12-19 09:15] LABS: HEMATOCRIT 35.6 % (35.4-49); MCHC 33.9 g/dl (32.0-35.9); MEAN CELL VOLUME 79.6 fl (80-96); MEAN PLT VOLUME 8.5 fl (7.5-11.1); PLATELET COUNT 165 10^3/uL (134-434); RBC 4.47 M/mm3 (4.00-5.60); RDW 14.6 % (11.9-15.9); WHITE BLOOD COUNT 7.2 K/mm3 (4.0-10.0)
[2023-12-19 09:25] LABS: CREATININE 11.1 mg/dL (0.55-1.3); N-TERMINAL BNP 60971.9 pg/ml (5-125)
[2023-12-19] MEDS: HEPARIN NA (PORCINE) 5,000 UNITS/ML 1ML VIAL SQ SCH ×2 (10:27→21:30)
[2023-12-19] MEDS: LOSARTAN POTASSIUM 25 MG TABLET PO SCH (10:28)
[2023-12-19] MEDS: CINACALCET HCL 30 MG TAB (FP) PO SCH (10:28)
[2023-12-19] MEDS: ASPIRIN COATED 81 MG TABLET.EC PO SCH (10:28)
[2023-12-19] MEDS ORDERED: SODIUM CHLORIDE 250 ML IV PRN (17:26)
[2023-12-19] MEDS: ROSUVASTATIN CA 10 MG TABLET PO SCH (21:30)
[2023-12-19] MEDS ORDERED: ROSUVASTATIN CA 10 MG TABLET PO SCH (22:00)
[2023-12-19] MEDS ORDERED: MUPIROCIN 2% TOPICAL OINTMENT FOR DECOLONIZATION NS SCH (22:00)
[2023-12-19] MEDS ORDERED: CHLORHEXIDINE GLUCONATE 4% CLEANSER FOR DECOLONIZATION TP SCH ×2 (22:00)
[2023-12-20 06:57] LABS: BASO % 0.9 % (0-2.0); EOS % 5.8 % (0-4.5); HEMATOCRIT 34.7 % (35.4-49); HEMOGLOBIN 11.1 GM/dL (11.7-16.9); LYMPH % 19.3 % (8-40); MCH 26.1 pg (25.7-33.7); MCHC 31.9 g/dl (32.0-35.9); MEAN PLT VOLUME 8.4 fl (7.5-11.1); MONO % 8.6 % (3.8-10.2); NEUT % 65.4 % (42.8-82.8); PLATELET COUNT 150 10^3/uL (134-434); RBC 4.23 M/mm3 (4.00-5.60); RDW 14.1 % (11.9-15.9); WHITE BLOOD COUNT 4.9 K/mm3 (4.0-10.0)
[2023-12-20 07:21] LABS: CHLORIDE 97 mmol/L (98-107); POTASSIUM 5.4 mmol/L (3.5-5.1); SODIUM 136 mmol/L (136-145)
[2023-12-20 07:27] LABS: ALBUMIN 3.4 g/dl (3.4-5.0); ANION GAP 14 mmol/L (4-13); BLOOD UREA NITROGEN 67.6 mg/dL (7-18); CO2 25 mmol/L (21-32); GLUCOSE,RANDOM 83 mg/dL (74-106); MAGNESIUM 2.1 mg/dL (1.8-2.4)
[2023-12-20 07:28] LABS: SGOT/AST 11 U/L (15-37); SGPT/ALT 12 U/L (13-61)
[2023-12-20 07:29] LABS: BILIRUBIN,TOTAL 0.6 mg/dL (0.2-1); PHOSPHOROUS 8.1 mg/dL (2.5-4.9)
[2023-12-20 07:30] LABS: TOT PROT 6.7 g/dl (6.4-8.2)
[2023-12-20 07:42] LABS: ALK PHOS 225 U/L (45-117); CREATININE 13.4 mg/dL (0.55-1.3)
[2023-12-20] MEDS: HEPARIN NA (PORCINE) 5,000 UNITS/ML 1ML VIAL IVPUSH ONE (08:45)
[2023-12-20] MEDS ORDERED: SODIUM CHLORIDE 250 ML IV PRN (09:09)
[2023-12-20 09:15] VITALS: RESP 18
[2023-12-20] MEDS ORDERED: CINACALCET HCL 30 MG TAB (FP) PO SCH (10:00)
[2023-12-20] MEDS: ASPIRIN COATED 81 MG TABLET.EC PO SCH (12:06)
[2023-12-20] MEDS: LOSARTAN POTASSIUM 25 MG TABLET PO SCH (12:06)
[2023-12-20 12:31] VITALS: BP 156/78; PULSE 80; TEMP 97.9
== END 2023-12-20 13:49 | disposition home or self-care (01) | DRG 291 ==
LOC: JER 17:25 → JERBED 18:58 → JICU 20:15 → J4W 12-19 15:48
PROVIDERS: ADMIT Internal Medicine Pulmonary Disease; ATTEND Internal Medicine
PROC: 5A1D70Z Performance of Urinary Filtration, Intermittent, Less than 6 Hours Per Day (ICD-10-PCS; principal; 2023-12-18)
DX: I13.2 Hypertensive heart and chronic kidney disease with heart failure and with stage 5 chronic kidney disease, or end stage renal disease (principal); I50.23 Acute on chronic systolic (congestive) heart failure; N18.6 End stage renal disease; Q61.3 Polycystic kidney, unspecified; E87.5 Hyperkalemia; E78.5 Hyperlipidemia, unspecified; I25.10 Atherosclerotic heart disease of native coronary artery without angina pectoris; Z99.2 Dependence on renal dialysis; I25.2 Old myocardial infarction
CPT/HCPCS: 0241U-QW; 36415; 71045-TC-FY; 80048; 80053; 81003; 82550; 82553; 82803; 82962; 83605; 83735; 83880; 84100; 84484; 85025; 85027; 85610; 85730; 86705; 86803; 86850; 86900; 86901; 87340; 87517; 93005; 93010; 93306-TC; 99291; J1644